=== PATIENT | female | born 1965 | race Caucasian/White ===

== ENCOUNTER 2023-03-15 08:20 | Emergency (ER) | payer MEDICARE, MEDICAID, SELFPAY ==
[2023-03-15] VITALS (34 sets, daily range): BP systolic 111–141; BP diastolic 78–96; PULSE 93–99; RESP 14–22; TEMP 35.8–36.4; O2SAT 94–99
--- NOTE | ~2023-03-15 | CT_ITS ---
EXAMINATION: CT cervical spine wo con DATE: 03/15/2023 08:48 INDICATION: Head injury. TECHNIQUE: Computed tomography (CT) of the cervical spine was performed without intravenous contrast. Automated exposure control and iterative reconstruction technique were employed. The dose-length pro duct was 227.29 mGy-cm. COMPARISON: None FINDINGS: There is mild emphysema. There is mild scarring at the lung apices. Bone alignment is chepe l. There are changes of anterior fusion procedure at C5-C6 with healed interbody bone graft and anter ior plate and screws. Vertebral body heights are normal. Intervertebral disc heights are normal. The following disc levels are specifically discussed: C2-C3: There is no uncovertebral joint osteoarthritis. There is moderate right and severe left facet joint osteoarthritis. There is no neural foraminal stenosis. There is no central canal stenosis. C3-C4: There is no uncovertebral joint osteoarthritis. There is mild bilateral facet joint osteoarthr itis. There is no neural foraminal stenosis. There is no central canal stenosis. C4-C5: There is no uncovertebral joint osteoarthritis. There is mild bilateral facet joint osteoarthr itis. There is no neural foraminal stenosis. There is no central canal stenosis. C5-C6: There is mild left uncovertebral joint hypertrophy. There is mild bilateral facet joint osteoa rthritis. There is mild left neural foraminal stenosis. There is no central canal stenosis. C6-C7: There is mild left uncovertebral joint osteoarthritis. There is no facet joint osteoarthritis. There is no neural foraminal stenosis. There is no central canal stenosis. C7-T1: There is no uncovertebral joint osteoarthritis. There is mild right and moderate left facet jorge int osteoarthritis. There is mild left neural foraminal stenosis. There is no central canal stenosis. IMPRESSION: 1. No fracture. 2. Mild cervical spondylosis. 3. Anterior fusion procedure at C5-C6. Reviewed, dictated and finalized at location A.
--- NOTE | ~2023-03-15 | CT_ITS ---
EXAMINATION: CT brain wo con DATE: 03/15/2023 08:48 INDICATION: Head injury. TECHNIQUE: Computed tomography (CT) of the head was performed without intravenous contrast. The mA wa s adjusted according to patient size. Iterative reconstruction technique was employed. The dose-lengt h product was 605.33 mGy-cm. COMPARISON: Head CT 09/24/2005 FINDINGS: There is no intracranial hemorrhage, acute infarction, or abnormal intracranial mass lesion . The ventricles are normal in size. There is mild mucosal thickening in the ethmoid sinuses. The orb its are normal. The mastoid air cells are normal. IMPRESSION: 1. Normal brain. Reviewed, dictated and finalized at location A. IMPRESSION: 1. Normal brain.
--- NOTE | ~2023-03-15 | XR_ITS ---
EXAMINATION: XR chest 1V portable 03/15/2023 08:47 INDICATION: Status post fall. Patient found unresponsive. PROCEDURE: AP portable chest COMPARISON: 04/14/2010 FINDINGS: The lungs are clear. The cardiomediastinal silhouette is within normal limits. There are no pleural effusions. There is no pneumothorax suspected. IMPRESSION: 1: NO ACUTE CARDIOPULMONARY DISEASE. Reviewed, dictated and finalized at location B.
--- NOTE | 2023-03-15 08:31 | ECG_ITS ---
Measurements Intervals [place] Rate: 88 P: 65 WA: 157 QRS: 27 QRSD: 122 T: 31 QT: 306 QTc: 371 Interpretive Statements SINUS RHYTHM SMALL NONDIAGNOSTIC INFERIOR Q-WAVES/POSSIBLE PREVIOUS INFERIOR WA BORDERLINE ECG NO PREVIOUS ECG AVAILABLE FOR COMPARISON Electronically Signed On 03-15-2023 14:37:36 CDT by Jeancarlos Khan M.D.
[2023-03-15] MEDS: NALOXONE HCL INJ 2 MG/2 ML AMP 1 MG IV PUSH (08:34)
[2023-03-15 08:37] LABS: Glucose Point of Care 102 mg/dl (65-105)
--- NOTE | 2023-03-15 08:47 | ED.HEATRA ---
HPI - Head Injury General Chief complaint: Head Injury Stated complaint: altered LOC Time Seen by Provider: 03/15/23 08:25 Source: patient and EMS Mode of arrival: EMS Limitations: altered mental status and clinical condition History of Present Illness HPI Narrative: patient is a 58-year-old female who fell 2 days ago at home with a head injury but did not seek medical care. EMS was called by her roommate. She was found to be unresponsive and hypoglycemia and hypothermia. Her pupils were small. She does use insulin and she does have pain medicine. Last known well was last night before bed. patient also has a seizure disorder. She has many medications. MD Complaint: head injury Onset (ago): day(s) (2) Arrival Conditions: C-spine immobilization present Mechanism of Injury: fall Place: home Loss of Consciousness: unsure Location of injury: other (unknown) Severity: moderate Severity scale (1-10): 5 Quality: sharp and throbbing Radiation: neck Other Injuries: none Context: other ( Recent opioid use suspected per EMS and her chart; recent insulin use) Associated symptoms: confusion Related Data Home Medications Medication Instructions Recorded Confirmed buspirone 10 mg tablet 10 mg PO TID 03/15/23 03/15/23 gabapentin 600 mg tablet 1,200 mg PO TID 03/15/23 03/15/23 hydroxyzine HCl 50 mg tablet 50 mg PO TID PRN Itching 03/15/23 03/15/23 levetiracetam 1,000 mg tablet 1,000 mg PO BID 03/15/23 03/15/23 omeprazole 40 mg capsule,delayed 40 mg PO DAILY 03/15/23 03/15/23 release pregabalin 150 mg capsule 150 mg PO DAILY 03/15/23 03/15/23 tizanidine 4 mg tablet 4 mg PO BID PRN Pain 03/15/23 03/15/23 Allergies Allergy/AdvReac Type Severity Reaction Status Date / Time No Known Allergies Allergy Unknown Verified 03/15/23 08:51 Review of Systems Review of Systems: All systems reviewed & are unremarkable except as noted in HPI and below Constitutional: Constitutional: Reports no additional constitutional complaints Eyes: Eyes: Reports no additional eye complaints ENT: Reports system reviewed and no additional complaints, except as documented Cardiovascular: Cardiovascular: Reports no additional cardiovascular complaints Respiratory: Respiratory: Reports no additional respiratory complaints Gastrointestinal: Gastrointestinal: Reports no additional gastrointestinal complaints Genitourinary: Genitourinary: Reports no additional female genitourinary complaints Musculoskeletal: Musculoskeletal: Reports no additional musculoskeletal complaints Integumentary/Breasts: Skin/Breast: Reports system reviewed and no additional complaints, except as docu Neurologic: Reports system reviewed and no additional complaints, except as documented Psychiatric: Psychiatric: Reports no additional psychiatric complaints Endocrine: Endocrine: Reports no additional endocrine complaints Hematologic/Lymphatic: Hematologic/Lymphatic: Reports no additional hematologic/lymphatic complaints Allergic/Immunologic: Allergic/Immunologic: Reports no additional allergic/immunologic complaints Exam Const: General: no acute distress, confusion and ill appearing Nutritional Appearance: thin Orientation/consciousness: No patient oriented x3 Limitations: altered mental status HENMT: Head: contusion ( posterior scalp) Eyes: Other: pupils are 2 mm bilateral reactive Resp: Effort & Inspection: normal respiratory effort Auscultation: clear to auscultation bilaterally Cardio: Rate: regular rate Rhythm: regular rhythm Heart sounds: no murmurs GI: Inspection: non-distended GI Palp: Yes Soft to palpation, No Tenderness to palpation present (GI), No Guarding due to palpation present (GI) and No Rigid due to palpation Auscultation: normal bowel sounds : General: Yes bladder normal to palpation Urinary Catheter: Urinary Catheter: patent and draining ( placed in ER) and urine clear Back/Spine/Pelvis: Cervical Spine: collar present Skin:
[2023-03-15] MEDS: SODIUM CHLORIDE 0.9% IV 1,000 ML 999 ML IV CONT (08:59)
[2023-03-15 09:16] LABS: Glucose Point of Care 181 mg/dl (65-105)
[2023-03-15 09:17] LABS: Basophils Absolute Auto 0.04 K/mm3 (0.00-0.10); Basophils Percent Auto 0.5 % (0.0-1.0); Eosinophils Absolute Auto 0.08 K/mm3 (0.02-0.50); Eosinophils Percent Auto 0.9 % (1.0-6.0); Hematocrit 44.9 % (35.0-49.0); Hemoglobin 15.5 g/dL (12.0-15.0); Immature Granulocyte Absolute 0.03 K/mm3 (0.00-0.00); Immature Granulocyte Percent A 0.4 % (0.0-0.0); Lymphocytes Absolute Auto 1.66 K/mm3 (1.10-4.50); Lymphocytes Percent Auto 19.4 % (18.0-42.0); Mean Corpuscular HGB Conc 34.5 g/dL (32.0-36.0); Mean Corpuscular Hemoglobin 30.6 pg (27.0-31.0); Mean Corpuscular Volume 88.6 fL (78.0-102.0); Mean Platelet Volume 11.6 fl (9.2-11.8); Monocytes Percent Auto 5.9 % (2.0-11.0); Neutrophils Absolute Auto 6.2 K/mm3 (1.7-7.2); Neutrophils Percent Auto 72.9 % (50.0-70.0); Platelet Count Result 212 K/mm3 (150-420); Red Blood Count 5.07 M/mm3 (4.20-5.40); Red Cell Distribution Width 13.8 % (11.6-14.4); White Blood Count 8.5 K/mm3 (4.8-10.8)
[2023-03-15 09:19] LABS: Appearance Urine Clear (Clear); Bilirubin Urine Negative (Negative); Blood Urine Negative (Negative); Color Urine Light Yellow (Yellow); Glucose Urine UA 2+ (Negative); Ketones Urine Negative (Negative); Leukocyte Esterase Ur Negative LEU/UL (Negative); Nitrate Urine Negative (Negative); Protein Urine Negative (Negative); Specific Grav Ur <= 1.005 (1.010-1.020); Urobilinogen Urine 0.2 mg/dL (0.2-1.0)
[2023-03-15 09:25] LABS: Amphetamine Screen Urine Negative (Negative); Barbiturate Screen Urine Negative (Negative); Benzodiazepines Screen Urine Positive (Negative); Cannabinoid Screen Urine Negative (Negative); Cocaine Screen Urine Negative (Negative); Methadone Screen Urine Negative (Negative); Opiate Screen Urine Negative (Negative); Phencyclidine Screen Urine Negative (Negative)
[2023-03-15 09:28] LABS: Add Urine Microscopic? YES; Bacteria Urine Rare /hpf; RBC Urine None seen /hpf (0-2); Squamous Epithelial Cell Urine Rare /hpf (Few); WBC Urine None seen /hpf (0-3)
--- NOTE | 2023-03-15 09:30 | PC.NURSE ---
Patient's daughter has arrived, states that the patient lives alone but last night she came to visit with her boyfriend and stayed the night. Patient informed daughter that she has not been taking care of her diabetes and they checked her blood sugar. They report last night her blood sugar was elevated at 574 and patient instructed daughter to give her 120 unites of humalog and 30 units of levimir at 1900. Daughter did as instructed around 2300 patient went to bed because she reports she wasn't feeling good. This morning around 0730 daughter went into patient's room to check on her and found her laying on the floor. They were not able to move patient so they called 911. Daughter states patient has been falling a lot lately and recently had a fall a few days ago. Patient did to got the doctor but didn't mention the falls or have anything checked out following the most recent one. Per daughter patient has been having a hard time lately due to the recent loss of her boyfriend who was on hospice and passed January 18 of this year. Daughter Aylin and sister Mechelle at bedside at this time. patient is now waking with voice, following commands and speaking more but is still drowsy.
[2023-03-15 09:35] LABS: Partial Thromboplastin Time 34.9 SEC (23.90-30.70); Prothrombin Time 10.7 Seconds (9.50-12.10)
[2023-03-15 09:38] LABS: Lactic Acid Reflex 2.6 mmol/L (0.4-2.0)
[2023-03-15 09:50] LABS: Glucose Point of Care 125 mg/dl (65-105)
[2023-03-15] MEDS: DEXTROSE 5%/0.45% SOD CHL 1,000 ML 50 ML IV CONT (09:54)
[2023-03-15 10:05] LABS: Alanine Aminotransferase 14 U/L (14-59); Albumin Level 3.7 g/dL (3.4-5.0); Alkaline Phosphatase 139 U/L (46-116); Anion Gap 12 mmol/L (8-16); Aspartate Amino Transferase 19 U/L (15-37); Bilirubin,Total 0.2 mg/dL (0.00-1.00); Blood Urea Nitrogen 19 mg/dL (7-18); Calcium 9.5 mg/dL (8.5-10.1); Carbon Dioxide 26 mmol/L (21-32); Chloride 96 mmol/L (98-108); Creatine Kinase 228 U/L (26-192); Estimated Glomerular Filt Rate > 60; Glucose 155 mg/dL (70-99); Osmolality Calculated 283 mOsm/kg (285-295); Potassium 2.8 mmol/L (3.5-5.1); Sodium 134 mmol/L (136-145); Total Protein 7.7 g/dL (6.4-8.2); Troponin I 13.4 ng/L (0.00-60.4)
[2023-03-15 10:07] LABS: Ethanol < 3 mg/dL (0-6)
[2023-03-15 10:49] LABS: Glucose Point of Care 124 mg/dl (65-105)
--- NOTE | 2023-03-15 11:15 | PC.NURSE ---
RN went into check on patient and start second IV, Patient easily to awaken and was talking with RN. Patient admitted to taking Ativan that is not prescribed to her last night before bed. Patient denies any thoughts of harming self or attempt at overdose.
[2023-03-15] MEDS: KCL 20 MEQ/SW 100 ML 100 ML 50 MEQ IVPB (11:19)
[2023-03-15 12:14] LABS: Reflex Lactic Acid Yes or No Add Lactic
[2023-03-15 13:03] LABS: Lactic Acid 2.5 mmol/L (0.4-2.0)
[2023-03-15 13:25] LABS: Glucose Point of Care 117 mg/dl (65-105)
--- NOTE | 2023-03-17 15:59 | PC.NURSE ---
Addendum entered by Mahsa Arreola RN 03/17/23 16:00: not final blood cultures reviewed, final urine culture reviewed, no growth, no ayala ein plan of care. blood cultures remain preliminary Original Note: final blood cultures x2 reviewed, no growth, no change in pt plan of care
--- NOTE | 2023-03-21 13:29 | PC.NURSE ---
blood culture reviewed, no growth noted after 5 days.
== END 2023-03-15 13:16 | disposition short-term general hospital (02) ==
PROVIDERS: Emergency Provider Emergency Medicine
DX: E16.2 Hypoglycemia, unspecified (principal); R40.4 Transient alteration of awareness; T42.4X5A Adverse effect of benzodiazepines, initial encounter; S09.90XA Unspecified injury of head, initial encounter; G40.909 Epilepsy, unspecified, not intractable, without status epilepticus; Z79.4 Long term (current) use of insulin; Z79.899 Other long term (current) drug therapy; W19.XXXA Unspecified fall, initial encounter
CPT/HCPCS: 36415; 70450; 71045; 72125; 80053; 80307; 81001; 82550; 82948; 83605; 84484; 85025; 85610; 85730; 87040; 87086; 93005; 96361; 96365; 96366; 96375; 99285; J2310; J3480; J7030

== ENCOUNTER 2023-05-25 22:37 | Emergency (ER) | payer MEDICARE, MEDICAID, SELFPAY ==
[2023-05-25 22:41] VITALS: BP 131/77; PULSE 87; RESP 18; O2SAT 97
--- NOTE | 2023-05-25 22:54 | PC.NURSE ---
call placed to [facility] , spoke with bree callaway. requested er record faxed to this facility, release form signed per pt and faxed to [facility].
--- NOTE | 2023-05-25 23:14 | ED.FALL ---
HPI - Fall General Chief Complaint: Fall Stated Complaint: fall, right foot injury Source: patient Mode of arrival: ambulatory Limitations: no limitations History of Present Illness HPI Narrative: this is a 58-year-old female that had a fall yesterday at 4:30 a.m. in the morning and injured her right ankle foot, was seen at another ER and had x-rays performed which showed no acute fractures. The patient continues to have pain and some mild swelling and tenderness with movement. Otherwise no numbness or tingling has good range of motion although tender with movement and palpation. complaint: fall Onset (ago): day(s) Fall from: standing Fall witnessed: no Place fall occurred: home Location of injury - extremities: Right: ankle ( Tender with palpation) and foot ( tender with palpation) Severity: moderate Severity scale (1-10): 6 Quality: dull Related Data Home Medications Medication Instructions Recorded Confirmed buspirone 10 mg tablet 10 mg PO TID 03/15/23 03/15/23 gabapentin 600 mg tablet 1,200 mg PO TID 03/15/23 03/15/23 hydroxyzine HCl 50 mg tablet 50 mg PO TID PRN Itching 03/15/23 03/15/23 levetiracetam 1,000 mg tablet 1,000 mg PO BID 03/15/23 03/15/23 omeprazole 40 mg capsule,delayed 40 mg PO DAILY 03/15/23 03/15/23 release pregabalin 150 mg capsule 150 mg PO DAILY 03/15/23 03/15/23 tizanidine 4 mg tablet 4 mg PO BID PRN Pain 03/15/23 03/15/23 Allergies Allergy/AdvReac Type Severity Reaction Status Date / Time No Known Allergies Allergy Unknown Verified 03/15/23 08:51 Review of Systems Review of Systems: All systems reviewed & are unremarkable except as noted in HPI and below PMFSH Past Medical History Medical History Patient denies medical problems Exam Const: General: healthy appearing Nutritional Appearance: well nourished Orientation/consciousness: patient oriented x3 Limitations: no limitations Neck: Neck: normal visual inspection Chest: Chest palpation & inspection: normal inspection of the chest Resp: Effort & Inspection: normal respiratory effort Auscultation: clear to auscultation bilaterally Cardio: Rate: regular rate Rhythm: regular rhythm GI: GI Palp: Yes Soft to palpation Auscultation: normal bowel sounds Neuro: General: patient oriented x3 and moves all extremities Extrem: Other: tender right ankle and right foot Psych: Mental Status: mental status grossly normal Affect: normal affect Course Course Emergency Course: patient had x-rays performed at another ER and those results were reviewed, the patient continues to have pain and was given 60mg IM Toradol and Dieudonne wrap and a script for crutches. Vital Signs Vital signs: Vital Signs Pulse Rate 87 05/25/23 22:41 Respiratory Rate 18 05/25/23 22:41 Blood Pressure 131/77 05/25/23 22:41 Pulse Oximetry 97 05/25/23 22:41 Oxygen Delivery Room Air 05/25/23 22:41 Pulse Rate 87 05/25/23 22:41 Respiratory Rate 18 05/25/23 22:41 Blood Pressure 131/77 05/25/23 22:41 Pulse Oximetry 97 05/25/23 22:41 Oxygen Delivery Room Air 05/25/23 22:41 Critical Care Time Critical Care Time Critical Care Time: No Discharge Plan Discharge Clinical Impression: Ankle sprain Qualifiers: Encounter type: initial encounter Involved ligament of ankle: unspecified ligament Laterality: right Qualified Code(s): S93.401A - Sprain of unspecified ligament of right ankle, initial encounter Patient Disposition: Home, Self-Care Condition: Stable Instructions: Antibiotic Form, Ankle Sprain (ED), Crutch Instructions (ED) Additional Instructions: advised to take medication as prescribed and follow up primary within 1 week further evaluation and treatment. Prescriptions: New naproxen 500 mg tablet 500 mg PO BID PRN (Reason: pain) Qty: 20 0RF No Action gabapentin 600 mg tablet 1,200 mg PO TID tizanidine 4 mg table
[2023-05-25] MEDS: KETOROLAC (*BKC) 60 MG/2 ML VIAL IM (23:20)
[2023-05-25 23:41] VITALS: BP 136/79; PULSE 84; RESP 18; O2SAT 98
== END 2023-05-25 23:47 | disposition home or self-care (01) ==
PROVIDERS: Emergency Provider Emergency Medicine
DX: S93.401A Sprain of unspecified ligament of right ankle, initial encounter (principal); W19.XXXA Unspecified fall, initial encounter
CPT/HCPCS: 96372; 99283; J1885

== ENCOUNTER 2024-05-13 14:33 | Outpatient (RCR) | payer MEDICARE, MEDICAID, SELFPAY ==
--- NOTE | 2024-05-13 16:12 | OPREHPOC ---
Outpatient Therapy Plan of Care This is a Multidisciplinary Plan of Care that may contain components documented by all disciplines (PT, OT, and ST.) PT Problem 1 PT Problem #1 Knowledge Deficit PT Goal 1 Goal / Goal Update The patient will be independent in a home exercise program. Target Visit 4 PT Problem 2 PT Problem #2 Pain PT Goal 1 Goal / Goal Update The patient will report no greater than 5/10 low back pain with bed mobility and sit to stand transfers. Target Visit 10 PT Goal 2 Goal / Goal Update The patient will report no greater than 3/10 low back pain with walking for 30 minutes to perform grocery shopping. Target Visit 18 PT Problem 3 PT Problem #3 Impaired Functional Mobil PT Goal 1 Goal / Goal Update 1. The patient will demonstrate 30% or less self perceived disability per the Back Index questionnaire. 2. The patient will be able to ambulate 1,000 feet during the 6 minute walk test to improve community ambulation. Target Visit 18 PT Problem 4 PT Problem #4 Impaired Strength PT Goal 1 Goal / Goal Update The patient will demonstrate 4/5 bilateral hip abduction and extension strength to improve transfer and ambulation ability. Target Visit 18
--- NOTE | 2024-05-13 16:12 | PTOPEVAL1 ---
Assessment and note entered by Maren Nava, PT Evaluation Information Assessment Status Evaluation Diagnosis L lumbar radiculopathy ICD-10 Condition Codes (PT) M54.16 Onset 05/05/24 Subjective Information Catrina Wilson reports she fell on 05/07/24 and 05/10. She reports she lost her balance while walking outside and fell to her right side. She went to the ER that same day and x-rays showed a fracture in her lumbar spine. She went to her PCP on 05/13/24 and was referred to PT. She is taking oxycodone for pain that was prescribed by the ER doctor. She is noting minimal change in pain with oxycodone so she is not taking it. She is using ibuprofen which helps a little and ice and heat have given her temporary pain relief. She is noting increased pain with sitting more than 30 minutes, standing more than 10 minutes, and walking more than a 1/4 block. She lives alone and is able to perform ADLs and housechores but has to take her time and it increases her pain as well . She was having back pain prior to the fall that was in the right lower back. She continues to have right lower back pain that is worse since she has fallen. She denies radiating pain or numbness and tingling other than the neuropathy she has in both feet. Reported Pain Level Pain Score 9: Self Report Assessment PT Clinical Summary Catrina Wilson presents with right lower back pain and reports she fell twice last week and her fall on 05/13/24 caused her to sustain a lumbar spine fracture. 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 She objectively demonstrates tenderness over the L5 spinous process, decreased core and hip girdle strength, decreased and painful lumbar mobility, impaired gait, and decreased functional abilities. She will benefit from skilled PT to address these limitations. Plan of Care Interventions Electrical Stimulation,Hot Pack/Cold Pack,Manual Therapy,Neuro Re-education,Patient/Caregiver Educati,Therapeutic Activities,Therapeutic Exercise PT Services Indicated Yes Treatment Frequency and 2 times a week for 10 visits Duration These treatments will address the objective and functional deficits as defined above. The patient will be advanced safely and appropriately in order for the patient to progress towards his/her prior level of function. Additional exercises will be introduced and as well as a comprehensive home exercise program upon discharge, if needed, ?to ensure carryover of functional gains achieved in the clinic. This treatment plan has been reviewed and agreement upon by the patient.
--- NOTE | 2024-05-14 10:25 | PCPTNOTE ---
Pt. did not show for her scheduled appointment. Attempted to ontact the pt. with no answer. Jeancarlos Moreland, MPT
--- NOTE | 2024-07-07 15:00 | PCPTNOTE ---
07/07/24: Pt last seen on 05/14/24 and only attended 2 visits. She will be discharged. -Maren Nava, PT
== END 2024-05-13 15:45 | disposition home or self-care (01) ==
LOC: CHSPT 14:33
PROVIDERS: Visit Provider Registered Nurse
DX: M54.16 Radiculopathy, lumbar region (principal)
CPT/HCPCS: 97014; 97110; 97161; G0283

== ENCOUNTER 2024-10-23 15:40 | Emergency (ER) | payer MEDICARE, MEDICAID, SELFPAY ==
--- NOTE | ~2024-10-23 | XR_ITS ---
HISTORY: fall, Upper back pain COMPARISON: None TECHNIQUE: 3 views of the thoracic spine were performed FINDINGS: No acute compression fracture is present. Bone mineralization is age advanced, demonstrating diffuse bony demineralization. Anterior fixation of the lower cervical spine. Significant degenerative disease, with osteophyte formation and disc space narrowing mostly within th e lower thoracic spine. No acute fracture is appreciated. IMPRESSION: Diffuse bony demineralization with significant degenerative disease. No acute fracture. Reviewed, dictated and finalized at location A. IMPRESSION: Diffuse bony demineralization with significant degenerative diseas e. No acute fracture.
[2024-10-23 15:40] VITALS: BP 162/80; PULSE 83; RESP 18; TEMP 36.3; O2SAT 96
--- NOTE | 2024-10-23 15:47 | ED_ITS ---
HPI - Fall General Chief Complaint: Back Pain/Injury Stated Complaint: Fall Time Seen by Provider: 10/23/24 15:47 Source: patient Mode of arrival: ambulatory Limitations: no limitations History of Present Illness HPI Narrative: Patient is a 59-year-old female with a ground level fall and down 1 stair prior to arrival. She had gotten a lower back steroid injection / pain injection today and lost footing on that same leg on the right and slipped on the top stair to the 2nd stair. She landed on the mid of her back. She has sharp pain on her back. She goes to pain management and has her refill tomorrow for pain medicine. She understands we cannot fill pain medicine. I did explain we can give pain medicine in the emergency room however. no head or neck injury. MD complaint: fall Onset (ago): hour(s) ( Three) Fall from: standing Fall witnessed: yes, by family Place fall occurred: other ( doctor's office stairwell) Loss of consciousness: none Prolonged down time: no Symptoms prior to fall: none Context: tripped/slipped Location of injury: back ( mid back thoracic region) Severity: moderate Severity scale (1-10): 7 Quality: sharp Associated symptoms (after fall): denies Related Data Home Medications ?Medication ?Instructions ?Recorded ?Confirmed ?Last Taken ?Type buspirone 10 mg tablet 10 mg PO TID 03/15/23 03/15/23 Unknown History gabapentin 600 mg tablet 1,200 mg PO TID 03/15/23 03/15/23 Unknown History hydroxyzine HCl 50 mg tablet 50 mg PO TID PRN Itching 03/15/23 03/15/23 Unknown History levetiracetam 1,000 mg tablet 1,000 mg PO BID 03/15/23 03/15/23 Unknown History omeprazole 40 mg capsule,delayed 40 mg PO DAILY 03/15/23 03/15/23 Unknown History release pregabalin 150 mg capsule 150 mg PO DAILY 03/15/23 03/15/23 Unknown History tizanidine 4 mg tablet 4 mg PO BID PRN Pain 03/15/23 03/15/23 Unknown History Allergies Allergy/AdvReac Type Severity Reaction Status Date / Time No Known Allergies Allergy Unknown Verified 10/23/24 15:51 Review of Systems Review of Systems: All systems reviewed & are unremarkable except as noted in HPI and below Constitutional: Constitutional: Reports no additional constitutional complaints Eyes: Eyes: Reports no additional eye complaints ENT: Reports system reviewed and no additional complaints, except as documented Cardiovascular: Cardiovascular: Reports no additional cardiovascular complaints Respiratory: Respiratory: Reports no additional respiratory complaints Gastrointestinal: Gastrointestinal: Reports no additional gastrointestinal complaints Genitourinary: Genitourinary: Reports no additional female genitourinary complaints Musculoskeletal: Musculoskeletal: Reports no additional musculoskeletal complaints Integumentary/Breasts: Skin/Breast: Reports system reviewed and no additional complaints, except as docu Neurologic: Reports system reviewed and no additional complaints, except as documented Psychiatric: Psychiatric: Reports no additional psychiatric complaints Endocrine: Endocrine: Reports no additional endocrine complaints Hematologic/Lymphatic: Hematologic/Lymphatic: Reports no additional hematologic/lymphatic complaints Allergic/Immunologic: Allergic/Immunologic: Reports no additional allergic/immunologic complaints PMFSH Past Medical History Medical History Patient denies medical problems Exam Const: General: healthy appearing Nutritional Appearance: well nourished Orientation/consciousness: patient oriented x3 Limitations: no limitations HENMT: Head: normal to inspection Ears: external ears normal Face/Nose/Sinus: Normal external nose present Eyes: Conjunctivae: conjunctivae normal Pupils: Equal, round and reactive pupils present EOM: EOMs intact bilaterally Neck: Neck: normal visual inspection Chest: Chest palpation & inspection: normal inspection of the chest Resp: Effort & Inspection: normal respiratory effort and not labored Auscultation: clear to auscultation bilaterally and no crackles Cardio: Rate: regular rate Rhythm: regular rhythm Heart sounds: no murmurs GI: Inspection: non-distended GI Palp: Yes Soft to palpation and No Tenderness to palpation present (GI) Auscultation: normal bowel sounds : General: Yes bladder normal to palpation Back/Spine/Pelvis: Back: no CVA tenderness Other: Tender midline spine mid spine Skin: General skin exam: normal color Rashes: no rashes Wounds: no wounds Neuro: General: patient oriented x3 Cranial nerves: Yes Nystagmus not present Speech: normal speech Gait exam (Neuro): Normal gait present Extrem: General: normal to inspection Psych: Mental Status: mental status grossly normal Affect: normal affect Attitude: cooperative Course Vital Signs Vital signs: Vital Signs Temperature 36.3 C L 10/23/24 15:40 Pulse Rate 83 10/23/24 15:40 Respiratory Rate 18 10/23/24 15:40 Blood Pressure 162/80 H 10/23/24 15:40 Pulse Oximetry 96 10/23/24 15:40 Oxygen Delivery Room Air 10/23/24 15:40 Temperature 36.3 C L 10/23/24 15:40 Pulse Rate 72 10/23/24 17:30 Respiratory Rate 17 10/23/24 17:30 Blood Pressure 154/95 H 10/23/24 17:30 Pulse Oximetry 97 10/23/24 17:30 Oxygen Delivery Room Air 10/23/24 15:40 MDM - Fall MDM Narrative Medical decision making narrative: patient is a 59-year-old female with a back injury after a fall ground level and down 1 stair prior to arrival. We will do x-rays and pain control. She has pain medicine pending tomorrow from her pain physician. no prescription for pain medicine sent to the pharmacy. Patient was given pain control in the emergency room. Imaging Data Attestation: I personally reviewed and interpreted this imaging study as follows: Radiologist's impression: Thoracic spine x-ray shows no acute process Discharge Plan Discharge Clinical Impression: Sprain of thoracic region Patient Disposition: Home, Self-Care Condition: Improved Instructions: Back Pain (ED) Patient Language: Chilean Prescriptions: No Action gabapentin 600 mg tablet 1,200 mg PO TID tizanidine 4 mg tablet 4 mg PO BID PRN (Reason: Pain) hydroxyzine HCl 50 mg tablet 50 mg PO TID PRN (Reason: Itching) omeprazole 40 mg capsule,delayed release(DR/EC) 40 mg PO DAILY buspirone 10 mg tablet 10 mg PO TID pregabalin 150 mg capsule 150 mg PO DAILY levetiracetam 1,000 mg tablet 1,000 mg PO BID naproxen 500 mg tablet 500 mg PO BID PRN (Reason: pain) Qty: 20 0RF Follow-up/Referrals: Maribell,Bakari Garcia MD [Primary Care Provider] - Time of Disposition: 18:07
--- OUTSIDE RECORDS SUMMARY | 2024-10-23 15:49 | XMS_ITS | Encounter Summary ---
Author Organization [facility] Address [facility] [place] [address] Care Team Providers Care Network Technician Name Role Phone Eriberto Malone MD Primary Care Provider [phone] None, Provider Primary Care Provider Unavaila ble None, Provider Primary Care Provider Unavaila ble Pearl Marin MD Primary Care Provider [phone] None, Provider Primary Care Provider Unavaila ble Valerie Kilgore MD Primary Care Provider + [phone] Jack Reynaga NP Unavailable [phone] Linda George MD Unavailable Encounter Details Date Type Department Care Team (Late st Contact Info) Description 10/05/2017 Abstract [facility] CONVERSION [address] [place] [address] , Generic Conversion, Social History Tobacco Use Types Packs/Day Years Used Date Smoking Tobacco: Smoker, Current Status Unknown Comments Unknown Sex and Gender Information Value Date Recorded Sex Assigned at Female 09/11/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 Sex Female 9:47 PM CDT Gender Identity Female 02/05/2020 6:25 AM CDT Sexual Orientation Not on file documented as of this encounter Plan of Treatment Not on file documented as of this encounter Visit Diagnoses Not on filedocumented in this encounter Additional Health Concerns Infection Onset Date Last Indicated Resolved Time ESBL - Extended Spectrum Beta-lactamase Comment:07/19/21 abscess tissue (SB) 08/05/2018 08/05/2018 COVID-19 Rule Out 06/21/2020 06/21/2020 06/21/2020 6:49 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 Dietrich, patient meets [facility] guidelines for discontinuing COVID isolation. (RG) 07/18/2021 07/18/2021 07/28/2021 1:[address] COVID-19 Rule Out 05/08/2024 05/08/2024 05/08/2024 9:36 PM CDT documented as of this encounter Care Teams Network Technician Relationship Specialty Start Date End Date Eriberto Malone MD [address] [place] [id number] PCP - General INTERNAL MEDICINE 12/26/18 06/14/19 None, Provider, PCP - General 06/22/19 09/06/19 None, ProviderMD PCP - General 09/07/19 10/04/19 Pearl Marin MD [address] [place] [id number] PCP - General INTERNAL MEDICINE 10/05/19 03/14/23 None, ProviderMD PCP - General UNKNOWN PHYSICIAN SPECIALTY 03/15/23 07/04/23 Valerie Kilgore MD [address] [place] [id number] PCP - General FAMILY PRACTICE 07/05/23 Jack Reynaga NP [address] [place] [phone] Nurse Practitioner Family 01/03/24 Linda George MD [address] [place] [id number] Consulting Physician CARDIOVASCULAR DISEASE 01/03/24 documented as of this encounter
--- OUTSIDE RECORDS SUMMARY | 2024-10-23 15:49 | XMS_ITS ---
Author Organization Unknown Address [address] [place] [phone] Phone Care Team Providers Care Engraver Flatware Name Role Phone KWAME Larose Attending Unavailable NILAM Underwood Primary Unavailable Immunization Immunization Date Status Additional Notes Code Code System Influenza, split virus, trivalent, preservative 06/21/2022 Completed 141 CVX Influenza, split virus, quadrivalent, PF 04/21/2019 Completed 150 CVX Influenza, split virus, quadrivalent, preservative 04/07/2019 Completed 158 C VX Influenza, split virus, quadrivalent, preservative 04/05/2023 Completed 158 C VX Influenza, MDCK, quadrivalen t, preservative 07/10/2018 Completed 186 CVX zoster recombinant 05/08/2023 Completed 187 CVX zoster recombinant 07/12/2023 Completed 187 CVX Pneumococcal conjugate PCV20 , polysaccharide [id number] conjugate, adjuvant, PF 05/08/2023 Completed 216 CVX COVID-19, mRNA, LNP-S, PF, prasad-sucrose, 30 mcg/0.3 mL 04/25/2023 Completed 309 CVX Social History Type Status Start Date End Date Code Code Syst em Smoking History Current every day smoker 404236048 SNOMED CT Sex Female Hospital Discharge Instructions Should you have any questions prior to discharge, please contact a member of your healthcare team. If you have left the hospital and have any questions, please contact your primary care physician. Reason For Referral No Data Found Allergies and Adverse Reactions Allergy Substance Reaction Severity Start Date Concern Status Co de Code System No Known Allergies Moderate Active 411933329 SN OMED-CT No Known Allergies Moderate Active 936823461 SN OMED-CT Plan of Treatment No Data Found Encounters Encounter Diagnosis Start Date Code Code Sys tem Low back pain, unspecified 05/06/2024 S NOMED-CT Personal Care Team Section Performer Name Performer Role Active Date Inactive Da NIKKO Torres PCP - Primary care physician 2021-08-22 2024-01-09 CHANO ORDONEZ PCP - Primary care physician 2024-05-27
--- OUTSIDE RECORDS SUMMARY | 2024-10-23 15:49 | XMS_ITS | Clinical Summary ---
Author Organization [facility] Address [address] [place] [address] Care Team Providers Care Beck Tender Name Role Phone Valerie Demarco MD Primary Care Provider [phone] Christy Reynaga [facility] Unavailable [phone] Linda George MD Unavailable Allergies Active Allergy Reactions Criticality Noted Date Comments Bee Venom Unknown 08/02/2021 Medications DULoxetine HCl 30 MG Capsule Delayed Release SprinkleIndicatio ns:Depression Take 90 mg by mouth daily. Indications: Depression 07/31/19 22 Active albuterol sulfate HFA 108 (90 Base) MCG/ACT inhalerIndication s:Shortness of breath Take 1 puff by mouth every 4 (four) hours as needed for Shortness of breath. Indications: Shortness of breath 07/17/20 12 Active famotidine (PEPCID) 40 MG tabletIndications :Acid Regurgitation Take 1 tablet (40 mg total) by mouth daily. Indications: Acid Regurgitation 05/29/20 21 Active insulin lispro 100 UNIT/ML injection (VIAL) Inject 0-12 Units into the skin 3 (three) times daily before meals. 10 mL 12 07/28/19 22 Active omeprazole (PRILOSEC) 40 MG capsule Take 1 capsule (40 mg total) by mouth daily. 02/28/20 23 Active hydrOXYzine (ATARAX) 50 MG tablet Take 1 tablet (50 mg total) by mouth every 8 (eight) hours as needed. 02/28/20 23 Active LEVEMIR FLEXPEN 100 UNIT/ML PEN Inject 60 Units into the skin 2 (two) times daily. 02/01/20 23 Active levothyroxine (SYNTHROID) 25 MCG tablet Take 1 tablet (25 mcg total) by mouth every morning. 06/17/20 23 Active diclofenac XR (VOLTAREN XR) 100 MG 24 hr tablet Take 1 tablet (100 mg total) by mouth daily as needed for Pain. 07/29/19 24 Active FLUoxetine (PROZAC) 20 MG capsule Take 1 capsule (20 mg total) by mouth daily. 07/23/19 24 Active TRELEGY ELLIPTA 100-62.5-25 MCG/ACT AEROSOL POWDER, BREATH ACTIVATED daily. 07/30/19 24 Active gabapentin (NEURONTIN) 400 MG capsule Take 1 capsule (400 mg total) by mouth 3 (three) times daily. 07/23/19 24 Active SUMAtriptan (IMITREX) 50 MG tablet Take 1 tablet (50 mg total) by mouth 2 (two) times daily as needed for Migraine. 07/11/20 23 Active ondansetron (ZOFRAN-ODT) 4 MG disintegrating tablet Take 1 tablet (4 mg total) by mouth every 12 (twelve) hours as needed for Nausea. 10 tablet 09/10/19 24 Active atorvastatin (LIPITOR) 80 MG tablet Take 1 tablet (80 mg total) by mouth nightly at bedtime. 10/22/19 24 Active fluconazole (DIFLUCAN) 200 MG tablet Take 1 tablet (200 mg total) by mouth daily. 09/27/19 24 Active LANTUS SOLOSTAR 100 UNIT/ML injection (PEN) Inject into the skin nightly at bedtime. 10/22/19 24 Active fenofibrate 160 MG tablet 11/12/19 24 Active PARoxetine (PAXIL) 30 MG tablet Take 1 tablet (30 mg total) by mouth every morning. Active meloxicam (MOBIC) 15 MG tablet Take 1 tablet (15 mg total) by mouth daily. Active aspirin 81 MG chewable tablet Chew 1 tablet (81 mg total) by mouth daily. Active nitroglycerin (NITROSTAT) 0.[address] 1 tablet (0.4 mg total) under the tongue every 5 (five) minutes as needed for Chest Pain. Maximum of 3 doses. 15 tablet 01/09/20 24 025 Active miconazole (ALOE VESTA ANTIFUNGAL) 2 % cream Apply topically 2 (two) times daily. 56 g 07/26/20 24 Active metroNIDAZOLE (FLAGYL) 500 MG tablet Take 1 tablet (500 mg total) by mouth 3 (three) times daily. Active naloxone (NARCAN) 4 MG/0.1ML nasal spray 1 spray by Nasal route as needed for Opioid reversal. may repeat every 2 to 3 minutes in alternating nostrils until medical assistance becomes available 1 each 05/09/20 24 025 Active oxyCODONE-acetami nophen (PERCOCET) 5-325 MG tabletIndications :Acute Pain < 3 Day Supply Take 1 tablet by mouth every 8 (eight) hours as needed for Pain. Indications: Acute Pain < 3 Day Supply 3 tablet 09/29/19 25 Active oxyCODONE-acetami nophen (PERCOCET) 5-325 MG tabletIndications :Acute Pain < 3 Day Supply Take 1 tablet by mouth every 8 (eight) hours as needed for Pain. 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 ([facility]) 07/28/2021 Necrotizing fasciitis ([facility]) 07/19/20 21 Chest pain 02/05/2020 HTN (hypertension) 02/05/2020 Resolved Problems Problem Noted Date Diagnosed Date Resolved Date Hypotension (arterial) 06/21/202006/22 Diabetes mellitus ([facility]) 02/05/2020 02/05/2020 Encounters Date Type Department Care Team Description 10/07/2024 1:02 PM CDT - 10/07/2024 11:59 PM CDT Hospital Encounter [facility] [address] [place] [address] Valerie Demarco MD Discharge Disposition: Home or Self Care (Routine Discharge) 10/07/2024 Travel 09/28/2024 2:58 AM CDT - 09/28/2024 5:19 AM CDT Emergency [facility] [address] [place] [address] Burt Trammell, DO Back Pain Discharge Disposition: Home or Self Care (Routine Discharge) 09/28/2024 Travel 07/30/2024 Transcribe Orders [facility] [address] [place] [address] Leonor Montaño FNP from Last 3 Months Immunizations Name Administration Dates Next Due Fluzone 6 Months+ Quad (0.5 mL Prefilled Syringe) 06/22/2020(Deferred: Patient/family declined) Family History Medical History Relation Comments Depression Brother Depression Father Diabetes Father Heart Disease Father Heart Disease Mother Breast Cancer Paternal Aunt Colon Cancer Paternal Grandfather Colon Cancer Sister Depression Sister Relation Status Comments Brother Alive Father Mother Paternal Aunt Paternal Grandfather Sister Alive Social History Tobacco Use Types Packs/Day Years Used Date Smoking Tobacco: Every Day Cigarettes 1 38 Smokeless Tobacco: Never Tobacco Cessation:Ready to Q uit: Not Asked; Counseling Given: Not Answered Alcohol Use Standard Drinks/Week Comments No 0 (1 standard drink = 0.6 oz pur e alcohol) [facility] Imnishities Answer Date Recorded In the past 12 months has e [employer], gas, oil, or water [employer] threatened to shut off services in your home? No 08/11/2023 Humiliation, Afraid, Rape, and Kick questionnair e Answer Date Recorded Within the last year, have y ou been afraid of your partner or ex-partner? No 08/11/2023 Within the last year, have y ou been humiliated or emotionally abused in other ways by your partner or ex-partner? No Within the last year, have y ou been kicked, hit, slapped, or otherwise physically hurt by your partner or ex-partner? No 08/11/2023 Within the last year, have y ou been raped or forced to have any kind of sexual activity by your partner or ex-partner? No 08/11/2023 Social Connection and Isolation Panel [NHANES] A nswer Date Recorded In a typical week, how many times do you talk on the phone with family, friends, or neighbors? Patient declined 06/21/2020 How often do you get togethe r with friends or relatives? Patient declined 06/21/2020 How often do you attend jain or baptism serv ices? Patient declined 06/21/2020 Do you belong to any clubs o r organizations such as jain groups, unions, fraternal or athletic groups, or school groups? Patient declined 06/21/2020 How often do you attend meet ings of the clubs or organizations you belong to? Patient declined 06/21/2020 Are you , , di vorced, , never , or living with a partner? Patient declined 06/21/2020 AUDIT-C Answer Date Recorded Frequency of Alcohol Consumption Never 02/27/2019 Average Number of Drinks Not on file 019 Frequency of Binge Drinking Not on file 03/2019 Overall Financial Resource Strain (CARDIA) Answe r Date Recorded How hard is it for you to pa y for the very basics like food, housing, medical care, and heating? Not hard at all 08/11/2023 [facility] - Occupational Stress Questionnaire Answer Date Recorded Do you feel stress - tense, restless, nervous, or anxious, or unable to sleep at night because your mind is troubled all the time - these days? Only a little 06/21/2020 Exercise Vital Sign Answer Date Recorde d On average, how many days pe r week do you engage in moderate to strenuous exercise (like a brisk walk)? 0 days 06/21/2020 On average, how many minutes do you engage in exercise at this level? 0 min 06/21/2020 Hunger Vital Sign Answer Date Recorded Within the past 12 months, y ou worried that your food would run out before you got the money to buy more. Never true 08/11/19 24 Within the past 12 months, t he food you bought just didn't last and you didn't have money to get more. Never true 08/11/2023 PRAPARE - Transportation Answer Date Re corded In the past 12 months, has l ack of transportation kept you from medical appointments or from getting medications? No 07/23 In the past 12 months, has l ack of transportation kept you from meetings, work, or from getting things needed for daily living? No 08/11/2023 Housing Stability Vital Sign Answer Sanjay e Recorded In the last 12 months, was t here a time when you were not able to pay the mortgage or rent on time? No 08/11/2023 In the last 12 months, how many places have you lived? 1 08/11/2023 In the last 12 months, was t here a time when you did not have a steady place to sleep or slept in a assisted (including now)? No 08/11/2023 Comments No Sex and Gender Information Value Date Recorded Sex Assigned at Female 09/11/2024 10:[address] SPECIALIST Legal Sex Female 9:47 PM CDT Gender Identity Female 02/05/2020 6:25 AM CDT Sexual Orientation Not on file Last Filed Vital Signs Vital Sign Reading Time Taken Comments Blood Pressure 119/65 09/28/2024 5:15 AM CDT Pulse 112 09/28/2024 3:04 AM CDT Temperature 37.4 C (99.4 F) 09/28/2024 3:04 AM CDT Respiratory Rate 18 09/28/2024 3:04 AM CDT Oxygen Saturation 93% 09/28/2024 5:15 AM CDT Inhaled Oxygen Concentration - - Weight 54.4 kg (120 lb) 09/28/2024 3:04 AM CDT Height 154.9 cm (5' 1 ) 09/28/2024 3:04 AM CDT Body Mass Index 22.67 09/28/2024 3:04 AM CDT Plan of Treatment Health Maintenance Due Date Last Done Comments Colorectal Cancer Screening Colonoscopy (10 Years) 1966 Kidney Health Evaluation 1966 Annual Physical 1969 Diabetes: Retinopathy Eye Exam 02/23/1984 DTaP, Tdap and Td Vaccines (1 - Tdap) 1985 Hepatitis B Vaccines (1 of 3 - 19+ 3-dose series) 1985 COVID-19 Vaccine (2 season) 2024 04/25/2023 Hemoglobin A1C 06/26/2024 03/27/2024, 02/20, 08/12/2022, Additional history exists Lung Cancer Screening 03/10/2025 03/10/2024 , 08/10/2023, 06/07/2020 Lipid Panel 03/27/2025 03/27/2024, 02/20, 05/31/2020, Additional history exists Mammogram Screening 10/07/2026 10/07/2024, 06/19/2023, 05/10/2022, Additional history exists Pneumococcal Vaccine: Pediatrics (0 to 5 Years) and At-Risk Patients (6 to 64 Years) Completed 05/08/2023 Zoster Vaccines Completed 07/12/2023, 05/08/2023 Hepatitis C Completed 03/27/2024 Meningococcal B Vaccine Aged Out No l onger eligible based on patient's age to complete this topic Meningococcal Vaccine Aged Out No zoya orlin eligible based on patient's age to complete this topic RSV Immunizations Under 20 Months Aged Out No longer eligible based on patient's age to complete this topic Goals Goal Patient Goal Type Associated Problems Recent Progress Patient-Stated? Author Safety Patient/family will have appropriate support at home upon discharge Cinthya Wang, big data analytics lead Procedure Name Priority Date/Time Associated Diagnosis Comments MG SCREENING W CANDACE TEA DIGI Routine 10/07/2024 2:04 PM CDT Encounter for screening mammogram for malignant neoplasm of breast HEPATITIS C ANTIBODY Routine 03/27/2024 5:16 PM CDT Screening for STD (sexually transmitted disease) LIPID PANEL Routine 03/27/2024 5:16 PM CDT Hypercholesterolemi a HEMOGLOBIN, GLYCOSYLATED Routine 03/27/2024 5:16 PM CDT Type [address] CHEST WO CON Routine 03/10/2024 2:13 PM CDT Lung nodule from Last 3 Months or Most Recently Relevant to Health Maintenance Results * MG SCREENING W CANDACE TEA DIGI (10/07/2024 2:04 PM CDT) Anatomical Region Laterality Modality Breast Bilateral Mammography 10/07/2024 3:06 PM CDT Impressions 10/07/2024 3:06 PM CDT IMPRESSION: No suspicious change since the previous exams. Recommendation: 1: Routine Screening Bilateral in 1 Year Assessment: ACR BI-RADS 2 - BENIGN FINDING(S) Ordered By: VALERIE DEMARCO Interpreted By: Galdino Carreon MD, 10/07/2024 3:06 PM Narrative 10/07/2024 3:06 PM CDT [address] [place] [address] Examination: Digital screening mammogram with CAD. Clinical history: Asymptomatic patient presents for routine screening. Comparison: 06/19/2023, 05/10/2022, 08/25/2020, 06/24/2019. Technique: Bilateral digital mammograms. The exam was interpreted with the use of a computer-aided detection (CAD) system. Additional 3-D tomosynthesis images were acquired. Tissue density: The breasts are heterogeneously dense which may obscure small masses. Findings: The breast tissue is heterogeneously dense. The dense tissue may obscure some lesions mammographically. Benign-appearing calcification noted. No suspicious mass, microcalcification or area of architectural distortion can be identified. From a mammographic standpoint, routine followup in one year would seem adequate. Valerie Demarco MD MAMMO Final Resu lt * (ABNORMAL) HEMOGLOBIN, GLYCOSYLATED (03/27/2024 5:16 PM CDT) Pathologist [facility] HGB A1C 10.5(H) <5.7 % 03/28/2024 5:01 PM CDT [facility] ESTIMATED AVG GLUCOSE 255(H) 74 - 114 MG/DL 03/28/2024 5:01 PM CDT [facility] 03/27/2024 5:16 PM CDT Christy Reynaga NP LABORATORY Fin al Result [facility] [address] [place] [address], [phone] * (ABNORMAL) LIPID PANEL (03/27/2024 5:16 PM CDT) Pathologist [facility] CHOLESTEROL 201 MG/DL 03/28/2024 4:24 PM CDT [facility] Comment:BORDERLINE HIGH: 200 -239 TRIGLYCERIDES 264 MG/DL 03/28/2024 4:24 PM CDT [facility] Comment:200-499 HIGH HDL 31(L) >49 MG/DL 03/28/2024 4:24 PM CDT [facility] LDL-C 117 MG/DL 03/28/2024 4:24 PM CDT [facility] Comment:100-129 NEAR OR ABOV E OPTIMAL VLDL CALCULATION 53 MG/DL 03/28/20 4:24 PM CDT [facility] Comment:REFERENCE RANGE NOT ESTABLISHED CHOL/HDL RATIO 6.5 03/28/2024 4:24 PM CDT [facility] Comment:REFERENCE RANGE NOT ESTABLISHED LDL/HDL 3.8 03/28/2024 4:24 PM CDT [facility] Comment:REFERENCE RANGE NOT ESTABLISHED NON HDL CHOLESTEROL 170 MG/DL 03/28/2024 4:24 PM CDT [facility] Comment:REFERENCE RANGE NOT ESTABLISHED 03/27/2024 5:16 PM CDT Christy Reynaga NP LABORATORY Fin al Result Performing Organization Address [facility] Co de Phone Number [facility] [address] [place] [address], [phone] * HEPATITIS C ANTIBODY (03/27/2024 5:16 PM CDT) Pathologist [facility] HEPATITIS C AB NON-REACTI VE NON-REACT JUDY 03/28/2024 6:13 PM CDT [facility] Comment: ANTIBODIES TO HCV NOT DETECTED. DOES NOT EXCLUDE THE POSSIBILITY OF EXPOSURE TO HCV. 03/27/2024 5:16 PM CDT Christy Muirwilman [facility] LABORATORY Fin al Result [facility] [address] [place] [address], [phone] * CT CHEST WO CON (03/10/2024 2:13 PM CDT) Anatomical Region Laterality Modality Chest Computed Tomogra phy 03/19/2024 3:18 PM CDT Impressions 03/19/2024 3:24 PM CDT IMPRESSION: 1. No acute intrathoracic process identified. 2. Benign pulmonary nodules as described. No further workup or surveillance is required. Given the patient's smoking history, consideration may be given to low dose screening chest CT in one year. 3. Coronary artery disease. 4. Centrilobular and paraseptal emphysema. Ordered By: CHRISTY REYNAGA Interpreted By: Galdino Carreon MD, 03/19/2024 3:18 PM Narrative 03/19/2024 3:24 PM [address]T [address] [place] [address] Examination: CT of the chest without contrast. Exam time: 1415 hours. Clinical history: Follow-up of pulmonary nodules. Smoker. Comparison: CT of the chest, abdomen and pelvis, 08/10/2023, CT of the chest, 06/07/2020. Technique: Spiral scanning was performed through the chest without contrast. Sagittal and coronal reconstructions were performed from the data set. A dose lowering technique was used for this procedure, which may include, but is not limited to, dose reduction techniques, automated exposure control, the use of iterative reconstruction and ALARA/Image Gently techniques. Findings: Calcific coronary artery disease and atherosclerotic calcification of the aorta again evident. The heart and great vessels are otherwise unremarkable for the noncontrast technique. No hilar or mediastinal adenopathy is identified. No endobronchial abnormality is identified. Changes of centrilobular and paraseptal emphysema are again evident. There is stable biapical scarring. Punctate calcified granuloma in the right lower lobe near the hilum is again evident. Bilateral sub-6 mm noncalcified nodules referenced on 08/10/2023 are again evident and considered stable since 06/07/2020 allowing for inherent technical differences, benign, presumably granulomas. There is no dominant mass, suspicious nodule or focal airspace opacity. No pleural abnormalities are seen. The chest wall structures appear intact. The included sections through the upper abdomen show no acute process. Cholecystectomy is again evident. Procedure Note Galdino Carreon MD - 03/19/2024 [facility] [address] [place] [address] Examination: CT of the chest without contrast. Exam time: 1415 hours. Clinical history: Follow-up of pulmonary nodules. Smoker. Comparison: CT of the chest, abdomen and pelvis, 08/10/2023, CT of thechest, 06/07/2020. Technique: Spiral scanning was performed through the chest withoutcontrast. Sagittal and coronal reconstructions were performed from thedata set. A dose lowering technique was used for this procedure, whichmay include, but is not limited to, dose reduction techniques, automatedexposure control, the use of iterative reconstruction and ALARA/ImageGently techniques. Findings: Calcific coronary artery disease and atheroscleroticcalcification of the aorta again evident. The heart and great vessels areotherwise unremarkable for the noncontrast technique. No hilar ormediastinal adenopathy is identified. No endobronchial abnormality isidentified. Changes of centrilobular and paraseptal emphysema are againevident. There is stable biapical scarring. Punctate calcified granulomain the right lower lobe near the hilum is again evident. Bilateral sub- 6mm noncalcified nodules referenced on 08/10/2023 are again evident andconsidered stable since 06/07/2020 allowing for inherent technicaldifferences, benign, presumably granulomas. There is no dominant mass,suspicious nodule or focal airspace opacity. No pleural abnormalities areseen. The chest wall structures appear intact. The included sectionsthrough the upper abdomen show no acute process. Cholecystectomy is againevident. IMPRESSION: 1. No acute intrathoracic process identified. 2. Benign pulmonary nodules as described. No further workup orsurveillance is required. Given the patient's smoking history,consideration may be given to low dose screening chest CT in one year. 3. Coronary artery disease. 4. Centrilobular and paraseptal emphysema. 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 Emergency Expl anation Guardianship - Permanent 04/07/2018 12:00 AM PHYSICIAN CERTIFICATION STATEMENT Legal Documents 05/09/2014 12:00 AM [facility] RECORD * Full Code (Latest Code Status on File) Date Activated Date Inactivated Comments 08/11/2023 8:21 PM 08/13/2023 2:31 PM * DNR Date Activated Date Inactivated Comments 03/15/2023 5:33 PM 04/05/2023 12:43 PM * Full Code Date Activated Date Inactivated Comments 03/15/2023 3:04 PM 03/15/2023 5:33 PM * Full Code Date Activated Date Inactivated Comments 08/12/2022 10:17 AM 08/14/2022 3:27 PM * Full Code Date Activated Date Inactivated Comments 09/14/2021 3:50 PM 10/08/2021 4:02 PM Care Teams Beck Tender Relationship Specialty Start Date End Date Valerie Demarco MD [address] [place] [phone] PCP - General FAMILY PRACTICE 07/05/23 Christy Reynaga NP [address] [place] [phone] Nurse Practitioner Family 01/03/24 Linda George MD [address] [place] [address] Consulting Physician CARDIOVASCULAR DISEASE 01/03/24
--- OUTSIDE RECORDS SUMMARY | 2024-10-23 15:49 | XMS_ITS ---
Author Organization Unknown Address [address] [place] [phone] Phone Care Team Providers Care Health Promotion Educator Name Role Phone MATEUSZ US Attending Unavailable NILAM Underwood Primary Unavailable Immunization [...] 187 CVX Pneumococcal conjugate PCV20 , polysaccharide SOT041 conjugate, adjuvant, PF 05/08/2023 Completed 216 CVX COVID-19, mRNA, LNP-S, PF, prasad-sucrose, 30 mcg/0.3 mL 04/25/2023 Completed 309 CVX Results SHOULDER MIN 2V RIGHT - Comp leted: 01/09/2024 16:00 LOINC: EXAM DESCRIPTION: SHOULDER MIN 2V RIGHT REASON FOR STUDY: CHILD SLAMMED DOWN ON SHOULDER SHOULDER BLADE PAIN THAT RADIATES TO ANTERIOR SHOULDER LROM Duration: TODAY TECHNIQUE: 4 view(s) of the right shoulder COMPARISON: None FINDINGS: There is mild osteoarthritis involving the acromioclavicular and glenohumeral joints. There is no destructive osseous lesion. No acute fracture or dislocation. The visualized ribs are intact. There is cervical fusion hardware at the C6-7 levels. Subtle nodular opacity in the right upper lobe superimposed over the 5th rib posteriorly on the AP view. IMPRESSION: 1. No acute fracture in the right shoulder. Osteoarthritis. 2. Nodular opacity within the right upper lobe. CT chest recommended for further evaluation. This can be performed non emergently. THIS IS AN ELECTRONICALLY VERIFIED FINAL REPORT 01/09/2024 4:22 PM - Electronically signed by Shoshana Irizarry M.D. TW: TW Report ID: [id number] Reading Location: [id number] Social History Type Status Start Date End Date Code Code Syst em Smoking History Current every day smoker 342333731 SNOMED CT Sex Female Hospital Discharge Instructions [...] Code System No Known Allergies Moderate Active 136980917 [facility] No Known Allergies Moderate Active 441296456 [facility] Plan of Treatment No Data Found Encounters Encounter Diagnosis Start Date Code Code Sys tem Contusion of right shoulder, initial encounter 024 SNOMED-CT Personal Care Team Section Performer Name Performer Role Active Date Inactive NIKKO Izaguirre PCP - Primary care physician 2021-08-22 2024-01-09 CHANO ORDONEZ PCP - Primary care physician 2024-05-27 Imaging Narrative Notes
--- OUTSIDE RECORDS SUMMARY | 2024-10-23 15:49 | XMS_ITS ---
Author Organization Unknown Address [address] [place] [phone] Phone Care Team Providers Care Bridges Supervisor Name Role Phone SHEPARD TAMIKO Attending Unavailable MERY Gasca Primary Unavailable Immunization Immunization Date Status Additional [...] 187 CVX Pneumococcal conjugate PCV20 , polysaccharide [id number] conjugate, adjuvant, PF 05/08/2023 Completed 216 CVX COVID-19, mRNA, LNP-S, PF, prasad-sucrose, 30 mcg/0.3 mL 04/25/2023 Completed 309 CVX Results CERVICAL SPINE 2 OR 3 VIEWS - Completed: 06/10/2024 10:35 LOINC: EXAM DESCRIPTION: CERVICAL SPINE 2 OR 3 VIEWS REASON FOR STUDY: fall last night neck pain Duration: one day Previous Surgery: fusion TECHNIQUE: 3 radiographic view(s) of the cervical spine. COMPARISON: None. FINDINGS: ALIGNMENT: Straightening of the normal cervical lordosis which may be in part due to postsurgical change, patient positioning, or muscular spasm. No definite acute traumatic spondylolisthesis. VERTEBRAE: Status post ACDF of C5-C6 with osseous fusion. No definite acute displaced fracture. Otherwise, vertebral body heights are grossly maintained. DISCS: Normal. SOFT TISSUES: Carotid atherosclerotic calcifications OTHER: Osseous fusion C5-C6. Otherwise disc height relatively maintained. IMPRESSION: ? ? No definite acute displaced fracture or traumatic malalignment of the cervical spine. THIS IS AN ELECTRONICALLY VERIFIED FINAL REPORT 06/10/2024 10:45 AM - Electronically signed by Pedro Serrano M.D. NS: NS Report ID: [id number] Reading Location: [id number] RIBS RIGHT W/ 1V CHEST - Com pleted: 06/10/2024 10:35 LOINC: EXAM DESCRIPTION: RIBS RIGHT W/ 1V CHEST REASON FOR STUDY: fall last night, denies rib pain hx of copd Duration: one day TECHNIQUE: Two views right ribs and frontal view chest COMPARISON: 08/22/2021 FINDINGS: No rib fracture or chest wall deformity. No pleural thickening, contusion or effusion. Lungs are well expanded. Peribronchial thickening suggesting inflammatory change or scarring, similar to 2021. No contusion, effusion or pneumothorax. Bony hypertrophic change obscures the apices, noted at the shoulders and thoracic spine. IMPRESSION: ? ? No acute chest wall abnormality. ? ? Peribronchial inflammatory changes versus interstitial scarring. THIS IS AN ELECTRONICALLY VERIFIED FINAL REPORT 06/10/2024 10:46 AM - Electronically signed by Kashif Li M.D. RB: TED Report ID: [id number] Reading Location: [id number] SHOULDER MIN 2V RIGHT - Comp leted: 06/10/2024 10:35 LOINC: EXAM DESCRIPTION: SHOULDER MIN 2V RIGHT REASON FOR STUDY: fall last night, right shoulder pain Duration: one day TECHNIQUE: 3 view(s) of the right shoulder COMPARISON: 01/09/2024 FINDINGS: No acute fracture or dislocation. Moderate osteoarthritis of the acromioclavicular joint and no significant osteoarthritis of the glenohumeral joint. Partially visualized ACDF. The previously described nodular density in the right upper lobe is not well seen on this examination. CT chest was recommended on the prior chest radiograph. IMPRESSION: No acute osseous abnormality. THIS IS AN ELECTRONICALLY VERIFIED FINAL REPORT 06/10/2024 10:46 AM - Electronically signed by Darell Pires M.D. MM: ANGEL Report ID: [id number] Reading Location: [id number] Social History Type Status Start Date End Date Code Code Syst em Smoking History Current every day smoker [id number] SNOMED CT Sex Female Hospital Discharge Instructions [...] Code System No Known Allergies Moderate Active 042701614 SN OMED-CT No Known Allergies Moderate Active 823437394 SN OMED-CT Plan of Treatment No Data [...]
--- OUTSIDE RECORDS SUMMARY | 2024-10-23 15:49 | XMS_ITS | Encounter Summary ---
Author Organization [facility] Address Formerly [facility], [id number] [place] [address] Care Team Providers Care Block Operator Name Role Phone Eriberto Malone MD Primary Care Provider [phone] None, Provider Primary Care Provider Unavaila ble None, Provider Primary Care Provider Unavaila ble Pearl Marin MD Primary Care Provider [phone] None, Provider Primary Care Provider Unavaila ble Valerie Kilgore MD Primary Care Provider + [phone] Jack Reynaga NP Unavailable [phone] Linda George MD Unavailable Encounter Details Date Type Department Care Team (Late st Contact Info) Description 12/27/2018 Abstract SFL CONVERSION [address] [place] [address] , Generic Conversion, Social History Tobacco Use Types Packs/Day Years Used Date Smoking Tobacco: Smoker, Current Status Unknown Comments Unknown Sex and Gender Information Value Date Recorded Sex Assigned at Female 09/11/2024 10:33 AM GARMENT MANUFACTURER Legal Sex Female 9:47 PM CDT Gender [...] Rule Out 06/21/2020 06/21/2020 06/21/2020 6:49 PM GARMENT MANUFACTURER COVID-19 Rule Out 06/21/2020 06/21/2020 06/22/2020 5:01 PM GARMENT MANUFACTURER COVID-19 Rule Out 07/18/2021 07/18/2021 07/18/2021 9:43 PM GARMENT MANUFACTURER COVID-19 Confirmed Comment:07/28/[address] Dietrich, patient meets [facility] guidelines for discontinuing COVID isolation. (RG) 07/18/2021 07/18/2021 07/28/2021 1:[address] COVID-19 Rule Out 05/08/2024 05/08/2024 05/08/2024 9:36 PM CDT documented as of this encounter Care Teams Block Operator Relationship Specialty Start Date End Date Eriberto Malone MD [address] [place] [id number] PCP - General INTERNAL MEDICINE 12/26/18 06/14/19 None, Provider, PCP - General 06/22/19 09/06/19 None, ProviderMD PCP - General 09/07/19 10/04/19 Pearl Marin MD [address] [place] [address] PCP - General INTERNAL MEDICINE 10/05/19 03/14/23 None, ProviderMD PCP - General UNKNOWN PHYSICIAN SPECIALTY 03/15/23 07/04/23 Valerie Kilgore MD [address] [place] [phone] PCP - General FAMILY PRACTICE 07/05/23 Jack Reynaga NP [address] [place], [place] [phone] Nurse Practitioner Family 01/03/24 Linda George MD [address] [place] [phone] Consulting Physician CARDIOVASCULAR DISEASE 01/03/24 documented as of this encounter
--- OUTSIDE RECORDS SUMMARY | 2024-10-23 15:49 | XMS_ITS ---
Author Organization Unknown Address [address] [place] [address] [phone] Phone Care Team Providers Care Watch Manufacturing Supervisor Name Role Phone ROBNESSAGREY COXIE Attending Unavailable MERY Gasca Primary Unavailable Immunization [...] 187 CVX Pneumococcal conjugate PCV20 , polysaccharide [id number] conjugate, adjuvant, PF 05/08/2023 Completed 216 CVX COVID-19, mRNA, LNP-S, PF, prasad-sucrose, 30 mcg/0.3 mL 04/25/2023 Completed 309 CVX Results NM GASTRIC EMPTYING - Comple corbin: 07/01/2024 12:22 LOINC: EXAM DESCRIPTION: NM GASTRIC EMPTYING REASON FOR STUDY: vomiting wt loss 1 year pt last mounjaro 2.5 dose 12.9.24 for diabetes Duration: 4hr RADIOPHARMACEUTICAL: 1 mCi Tc-99m sulfur colloid incorporated into eggs p.o. TECHNIQUE: After oral ingestion of the radiolabeled meal, sequential anterior and posterior abdominal images were obtained. COMPARISON: None. FINDINGS: At 60 minutes, the residual activity is essentially 100% (normal: 30- 90%). At 120 minutes, the residual activity is essentially 100% (normal: less than 60%). At 180 minutes, the residual activity is essentially 100% (normal: less than 30%). At 240 minutes, the residual activity is 96% (normal: less than 10%). T1/2 emptying time is not applicable. IMPRESSION: Severe abnormal delayed gastric emptying. THIS IS AN ELECTRONICALLY VERIFIED FINAL REPORT 07/01/2024 12:57 PM - Electronically signed by Warner Rhodes M.D. CH: MIRELA Report ID: [id number] Reading Location: [id number] Social History Type Status Start Date End Date Code Code Syst em Smoking History Current every day smoker 527615066 SNOMED CT Sex Female Hospital Discharge Instructions [...] Code System No Known Allergies Moderate Active 525254093 SN OMED-CT No Known Allergies Moderate Active 545761745 SN OMED-CT Plan of Treatment No Data Found Encounters Encounter Diagnosis Start Date Code Code Sys tem Functional dyspepsia 07/01/2024 SNOMED- CT Personal Care Team Section Performer Name Performer Role Active Date Inactive NIKKO Izaguirre PCP - Primary care physician 2021-08-22 2024-01-09 CHANO ORDONEZ PCP - Primary care physician 2024-05-27 Imaging Narrative Notes
--- OUTSIDE RECORDS SUMMARY | 2024-10-23 15:50 | XMS_ITS ---
Author Organization Unknown Address [address] [place] [phone] Phone Care Team Providers Care Bus Trolley And Taxi Instructor Name Role Phone JENNIFFER COXIE Attending Unavailable MERY Gasca Primary Unavailable [...] 187 CVX Pneumococcal conjugate PCV20 , polysaccharide [id number] conjugate, adjuvant, PF 05/08/2023 Completed 216 CVX COVID-19, mRNA, LNP-S, PF, prasad-sucrose, 30 mcg/0.3 mL 04/25/2023 Completed 309 CVX Results LUMBAR SPINE - Completed: 11:55 LOINC: EXAM DESCRIPTION: LUMBAR SPINE REASON FOR STUDY: pain x's 5 years worse since fall hx of sciatica and bulging disc fall 2 weeks ago no previous fx or sx Duration: 5 years TECHNIQUE: Three views COMPARISON: 08/12/2021 CT, pelvic x-ray today. FINDINGS: 5 non rib-bearing lumbar type vertebra. Mild depression superior endplate L2 new from previous suggesting acute compression fracture. No retropulsed bony fragment. No gross extent to posterior elements. Paravertebral soft tissues unremarkable. Mild degenerative change SI joints. IMPRESSION: Mild depression superior endplate L2 new from previous. THIS IS AN ELECTRONICALLY VERIFIED FINAL REPORT 05/27/2024 12:18 PM - Electronically signed by Kashif Li M.D. RB: TED Report ID: [id number] Reading Location: [id number] PELVIS - Completed: 05/27/20 24 11:55 LOINC: EXAM DESCRIPTION: PELVIS REASON FOR STUDY: pain x's 5 years worse since fall hx of sciatica and bulging disc fall 2 weeks ago no previous fx or sx Duration: 5 years TECHNIQUE: Single-view COMPARISON: 08/12/2021 FINDINGS: No fracture or dislocation. Soft tissues unremarkable. Large volume stool. IMPRESSION: No acute findings pelvis. THIS IS AN ELECTRONICALLY VERIFIED FINAL REPORT 05/27/2024 12:17 PM - Electronically signed by Kashif Li M.D. RB: TED Report ID: [id number] Reading Location: [id number] Social History Type Status Start Date End Date Code Code Syst em Smoking History Current every day smoker [id number] SNOMED CT Sex Female Hospital Discharge Instructions [...] Code System No Known Allergies Moderate Active 914296107 SN OMED-CT No Known Allergies Moderate Active 781584650 SN OMED-CT Plan of Treatment No Data Found Encounters Encounter Diagnosis Start Date Code Code Sys tem Lumbago with sciatica, unspecified side 05/27/2024 SNOMED-CT Personal Care Team Section Performer Name Performer Role Active Date Inactive NIKKO Izaguirre PCP - Primary care physician 2021-08-22 2024-01-09 CHANO ORDONEZ PCP - Primary care physician 2024-05-27 Imaging Narrative Notes
--- OUTSIDE RECORDS SUMMARY | 2024-10-23 16:18 | XMS_ITS | CONTINUITY OF CARE DOCUMENT ---
Author Name vinay mclean Address Unknown Organization [facility] Address [address] [place] [address] Phone [phone] Care Team Providers Care Body And Fender Worker Name Role Phone vinay mclean Unavailable Unavailable
--- OUTSIDE RECORDS SUMMARY | 2024-10-23 16:18 | XMS_ITS ---
Author Organization Unknown Address [address] [place] [phone] Phone Care Team Providers Care Industrial Gas Fitter Helper Name Role Phone SHEPARD TAMIKO Attending Unavailable [...] 187 CVX Pneumococcal conjugate PCV20 , polysaccharide [id number] conjugate, adjuvant, PF 05/08/2023 Completed 216 CVX [...] Pedro Serrano M.D. NS: NS Report ID: [id number] Reading Location: [id number] RIBS RIGHT W/ 1V CHEST - Com [...] Kashif Li M.D. RB: TED Report ID: [id number] Reading Location: [id number] SHOULDER MIN 2V RIGHT - Comp leted: [...] Darell Pires M.D. MM: ANGEL Report ID: [id number] Reading Location: [id number] Social History Type Status Start Date End Date Code Code Syst em Smoking History Current every day smoker 500093435 SNOMED CT Sex Female Hospital Discharge Instructions [...] Code System No Known Allergies Moderate Active 246000207 SN OMED-CT No Known Allergies Moderate Active 356145750 SN OMED-CT Plan of Treatment No Data [...]
--- OUTSIDE RECORDS SUMMARY | 2024-10-23 16:18 | XMS_ITS ---
Author Organization Unknown Address [address] [place] [phone] Phone Care Team Providers Care Underwriting Assistant Name Role Phone ROBNESSAGREY COXIE Attending Unavailable [...] 187 CVX Pneumococcal conjugate PCV20 , polysaccharide MNF014 conjugate, adjuvant, PF 05/08/2023 Completed 216 CVX [...] Warner Rhodes M.D. CH: MIRELA Report ID: [id number] Reading Location: [id number] Social History Type Status Start Date End Date Code Code Syst em Smoking History Current every day smoker 362503742 SNOMED CT Sex Female Hospital Discharge Instructions [...] Code System No Known Allergies Moderate Active 630846957 SN OMED-CT No Known Allergies Moderate Active 002111949 SN OMED-CT Plan of Treatment No Data Found Encounters Encounter Diagnosis Start Date Code Code Sys tem Functional dyspepsia 07/01/2024 SNOMED- CT Personal Care Team Section Performer Name Performer Role Active Date Inactive NIKKO Izaguirre PCP - Primary care physician 2021-08-22 2024-01-09 CHANO ORDONEZ PCP - Primary care physician 2024-05-27 Imaging Narrative Notes
--- OUTSIDE RECORDS SUMMARY | 2024-10-23 16:18 | XMS_ITS ---
Author Organization Unknown Address [address] [place] [address] [phone] Phone Care Team Providers Care Administrative Analyst Name Role Phone MATEUSZ US Attending Unavailable [...] 187 CVX Pneumococcal conjugate PCV20 , polysaccharide PVD426 conjugate, adjuvant, PF 05/08/2023 Completed 216 CVX [...] Shoshana Irizarry M.D. TW: TW Report ID: [id number] Reading Location: [id number] Social History Type Status Start Date End Date Code Code Syst em Smoking History Current every day smoker 055737154 SNOMED CT Sex Female Hospital Discharge Instructions [...] Code System No Known Allergies Moderate Active 010462399 SN OMED-CT No Known Allergies Moderate Active 753563638 SN OMED-CT Plan of Treatment No Data Found Encounters Encounter Diagnosis Start Date Code Code Sys tem Contusion of right shoulder, initial encounter 024 SNOMED-CT Personal Care Team Section Performer Name Performer Role Active Date Inactive NIKKO Izaguirre PCP - Primary care physician 2021-08-22 2024-01-09 CHANO ORDONEZ PCP - Primary care physician 2024-05-27 Imaging Narrative Notes
--- OUTSIDE RECORDS SUMMARY | 2024-10-23 16:18 | XMS_ITS | Encounter Summary ---
Author Organization [facility] Address [facility] [place] [address] Care Team Providers Care Habitat Conservation Planner Name Role Phone Eriberto Malone MD Primary Care Provider [phone] None, Provider Primary Care Provider Unavaila ble None, Provider Primary Care Provider Unavaila ble Pearl Marin MD Primary Care Provider [phone] None, Provider Primary Care Provider Unavaila ble Valerie Kilgore MD Primary Care Provider + [phone] Jack Reynaga NP Unavailable [phone] Linda George MD Unavailable Encounter Details Date Type Department Care Team (Late st Contact Info) Description 12/27/2018 Abstract SFL CONVERSION [address] [place] [address] , Generic Conversion, Social History Tobacco Use Types Packs/Day Years Used Date Smoking Tobacco: Smoker, Current Status Unknown Comments Unknown Sex and Gender Information Value Date Recorded Sex Assigned at Female 09/11/2024 10:33 AM ORNAMENTAL IRONWORKING SUPERVISOR Legal Sex Female 9:47 PM CDT Gender [...] Rule Out 06/21/2020 06/21/2020 06/21/2020 6:49 PM ORNAMENTAL IRONWORKING SUPERVISOR COVID-19 Rule Out 06/21/2020 06/21/2020 06/22/2020 5:01 PM ORNAMENTAL IRONWORKING SUPERVISOR COVID-19 Rule Out 07/18/2021 07/18/2021 07/18/2021 9:43 PM ORNAMENTAL IRONWORKING SUPERVISOR COVID-19 Confirmed Comment:07/28/[address] Dietrich, patient meets [facility] guidelines for discontinuing COVID isolation. (RG) 07/18/2021 07/18/2021 07/28/2021 1:[address] COVID-19 Rule Out 05/08/2024 05/08/2024 05/08/2024 9:36 PM CDT documented as of this encounter Care Teams Habitat Conservation Planner Relationship Specialty Start Date End Date Eriberto Malone MD [address] [place] [id number] PCP - General INTERNAL MEDICINE 12/26/18 06/14/19 None, Provider, PCP - General 06/22/19 09/06/19 None, ProviderMD PCP - General 09/07/19 10/04/19 Pearl Marin MD [address] [place] [id number] PCP - General INTERNAL MEDICINE 10/05/19 03/14/23 None, ProviderMD PCP - General UNKNOWN PHYSICIAN SPECIALTY 03/15/23 07/04/23 Valerie Kilgore MD [address] [place] [phone] PCP - General FAMILY PRACTICE 07/05/23 Jack Reynaga NP [address] [place], [place] [phone] Nurse Practitioner Family 01/03/24 Linda George MD [address] [place] [phone] Consulting Physician CARDIOVASCULAR DISEASE 01/03/24 documented as of this encounter
--- OUTSIDE RECORDS SUMMARY | 2024-10-23 16:18 | XMS_ITS | Encounter Summary ---
Author Organization [facility] Address [facility] [place] [address] Care Team Providers Care Postal Delivery Officer Name Role Phone Eriberto Malone MD Primary Care Provider [phone] None, Provider Primary Care Provider Unavaila ble None, Provider Primary Care Provider Unavaila ble Pearl Marin MD Primary Care Provider [phone] None, Provider Primary Care Provider Unavaila ble Valerie Kilgore MD Primary Care Provider + [phone] Jack Reynaga NP Unavailable +[phone] Linda George MD Unavailable Encounter Details Date Type Department Care Team (Late st Contact Info) Description 10/05/2017 Abstract SJS CONVERSION [address] [place] [address] , Generic Conversion, Social History Tobacco Use Types Packs/Day Years Used Date Smoking Tobacco: Smoker, Current Status Unknown Comments Unknown Sex and Gender Information Value Date Recorded Sex Assigned at Female 09/11/2024 10:33 AM COT ASSEMBLER Legal Sex Female 9:47 PM CDT Gender [...] Rule Out 06/21/2020 06/21/2020 06/21/2020 6:49 PM COT ASSEMBLER COVID-19 Rule Out 06/21/2020 06/21/2020 06/22/2020 5:01 PM COT ASSEMBLER COVID-19 Rule Out 07/18/2021 07/18/2021 07/18/2021 9:43 PM COT ASSEMBLER COVID-19 Confirmed Comment:07/28/[address] Dietrich, patient meets [facility] guidelines for discontinuing COVID isolation. (RG) 07/18/2021 07/18/2021 07/28/2021 1:[address] COVID-19 Rule Out 05/08/2024 05/08/2024 05/08/2024 9:36 PM CDT documented as of this encounter Care Teams Postal Delivery Officer Relationship Specialty Start Date End Date Eriberto Malone MD [address] [place] [phone] PCP - General INTERNAL MEDICINE 12/26/18 06/14/19 None, Provider, PCP - General 06/22/19 09/06/19 None, ProviderMD PCP - General 09/07/19 10/04/19 Pearl Marin MD [address] [place] [id number] PCP - General INTERNAL MEDICINE 10/05/19 03/14/23 None, ProviderMD PCP - General UNKNOWN PHYSICIAN SPECIALTY 03/15/23 07/04/23 Valerie Kilgore MD [address] [place] [phone] PCP - General FAMILY PRACTICE 07/05/23 Jack Reynaga NP [address] [place] [phone] Nurse Practitioner Family 01/03/24 Linda George MD [address] [place] [phone] Consulting Physician CARDIOVASCULAR DISEASE 01/03/24 documented as of this encounter
--- OUTSIDE RECORDS SUMMARY | 2024-10-23 16:19 | XMS_ITS ---
Author Organization Unknown Address [address] [place] [phone] Phone Care Team Providers Care Statement Distribution Clerk Name Role Phone JENNIFFER COXIE Attending Unavailable [...] 187 CVX Pneumococcal conjugate PCV20 , polysaccharide TAU020 conjugate, adjuvant, PF 05/08/2023 Completed 216 CVX [...] Kashif Li M.D. RB: TED Report ID: [id number] Reading Location: [id number] PELVIS - Completed: 05/27/20 24 11:55 LOINC: [...] Kashif Li M.D. RB: TED Report ID: [id number] Reading Location: [id number] Social History Type Status Start Date End Date Code Code Syst em Smoking History Current every day smoker 739315241 SNOMED CT Sex Female Hospital Discharge Instructions [...] Code System No Known Allergies Moderate Active 427384309 SN OMED-CT No Known Allergies Moderate Active 444681012 SN OMED-CT Plan of Treatment No Data Found Encounters Encounter Diagnosis Start Date Code Code Sys tem Lumbago with sciatica, unspecified side 05/27/2024 SNOMED-CT Personal Care Team Section Performer Name Performer Role Active Date Inactive NIKKO Izaguirre PCP - Primary care physician 2021-08-22 2024-01-09 CHANO ORDONEZ PCP - Primary care physician 2024-05-27 Imaging Narrative Notes
--- OUTSIDE RECORDS SUMMARY | 2024-10-23 16:19 | XMS_ITS | Clinical Summary ---
Author Organization [facility] Address [address] [place] [address] Care Team Providers Care Web Development Intern Name Role Phone Valerie Demarco MD Primary Care Provider [phone]- [phone] Christy Reynaga MORTGAGE FIELD INSPECTOR Unavailable +[phone] Linda George MD Unavailable Allergies Active Allergy [...] Acute diverticulitis 08/11/2023 Encephalopathy 03/15/2023 Status epilepticus ([facility]) 08/12/2022 Sepsis ([facility]) 07/28/2021 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 ([facility]) 07/28/2021 Necrotizing fasciitis ([facility]) 07/19/20 21 Chest pain 02/05/2020 HTN (hypertension) 02/05/2020 Resolved Problems Problem Noted Date Diagnosed Date Resolved Date Hypotension (arterial) 06/21/202006/22 Diabetes mellitus ([facility]) 02/05/2020 02/05/2020 Encounters Date Type Department Care Team Description 10/07/2024 1:02 PM CDT - 10/07/2024 11:59 PM CDT Hospital Encounter [facility] [address] [place] [address] Valerie Demarco MD Discharge Disposition: Home or Self Care (Routine Discharge) 10/07/2024 Travel 09/28/2024 2:58 AM CDT - 09/28/2024 5:19 AM CDT Emergency [facility] [address] [place] [address] Burt Trammell, DO Back Pain Discharge Disposition: Home or Self Care (Routine Discharge) 09/28/2024 Travel 07/30/2024 Transcribe Orders [facility] [address] [place] [address] Leonor Montaño FNP from Last 3 Months [...] drink = 0.6 oz pur e alcohol) [facility] [employer] Answer Date Recorded In the past 12 months has e [employer], gas, oil, or water [employer] threatened to shut off services in your [...] declined 06/21/2020 How often do you attend religion or baptist serv ices? Patient declined 06/21/2020 Do you belong to any clubs o r organizations such as religion groups, unions, fraternal or athletic groups, or [...] and heating? Not hard at all 08/11/2023 [facility] - Occupational Stress Questionnaire Answer Date Recorded [...] place to sleep or slept in a retirement (including now)? No 08/11/2023 Comments No Sex and Gender Information Value Date Recorded Sex Assigned at Female 09/11/2024 10:33 AM BIRTH ATTENDANT Legal Sex Female 9:47 PM CDT Gender [...] support at home upon discharge Cinthya Wang, bookie Procedure Name Priority Date/Time Associated Diagnosis Comments [...] 3:06 PM Narrative 10/07/2024 3:06 PM [address] [place] [address] Examination: Digital screening mammogram with CAD. Clinical [...] HEMOGLOBIN, GLYCOSYLATED (03/27/2024 5:16 PM CDT) Pathologist [facility] HGB A1C 10.5(H) <5.7 % 03/28/2024 5:01 PM CDT [facility] ESTIMATED AVG GLUCOSE 255(H) 74 - 114 MG/DL 03/28/2024 5:01 PM CDT [facility] 03/27/2024 5:16 PM CDT Christy Reynaga NP LABORATORY Fin al Result [facility] [address] [place] [address], [id number] * (ABNORMAL) LIPID PANEL (03/27/2024 5:16 PM CDT) Pathologist [facility] CHOLESTEROL 201 MG/DL 03/28/2024 4:24 PM CDT [facility] Comment:BORDERLINE HIGH: 200 -239 TRIGLYCERIDES 264 MG/DL 03/28/2024 4:24 PM CDT [facility] Comment:200-499 HIGH HDL 31(L) >49 MG/DL 03/28/2024 4:24 PM CDT [facility] LDL-C 117 MG/DL 03/28/2024 4:24 PM CDT [facility] Comment:100-129 NEAR OR ABOV E OPTIMAL VLDL CALCULATION 53 MG/DL 03/28/20 4:24 PM CDT [facility] Comment:REFERENCE RANGE NOT ESTABLISHED CHOL/HDL RATIO 6.5 03/28/2024 4:24 PM CDT [facility] Comment:REFERENCE RANGE NOT ESTABLISHED LDL/HDL 3.8 03/28/2024 4:24 PM CDT [facility] Comment:REFERENCE RANGE NOT ESTABLISHED NON HDL CHOLESTEROL 170 MG/DL 03/28/2024 4:24 PM CDT [facility] Comment:REFERENCE RANGE NOT ESTABLISHED 03/27/2024 5:16 PM CDT Christy Reynaga NP LABORATORY Fin al Result Performing Organization Address [facility] Co de Phone Number [facility] [address] [place] [address], [id number] * HEPATITIS C ANTIBODY (03/27/2024 5:16 PM CDT) Pathologist [facility] HEPATITIS C AB NON-REACTI VE NON-REACT JUDY 03/28/2024 6:13 PM CDT [facility] Comment: ANTIBODIES TO HCV NOT DETECTED. DOES NOT EXCLUDE THE POSSIBILITY OF EXPOSURE TO HCV. 03/27/2024 5:16 PM CDT Christy Muirwilman MORTGAGE FIELD INSPECTOR LABORATORY Fin al Result [facility] [address] [place] [address], [phone] * CT CHEST WO CON (03/10/2024 2:13 [...] 3:18 PM Narrative 03/19/2024 3:24 PM CDT [address] [place] [address] Examination: CT of the chest without contrast. [...] Procedure Note Galdino Carreon MD - 03/19/2024 [facility] [address] [place] [address] Examination: CT of the chest without contrast. [...] Carreon MD, 03/19/2024 3:18 PM Christy Reynaga MORTGAGE FIELD INSPECTOR CT Fin al Result from Last 3 Months or Most Recently Relevant to Health Maintenance Additional Health Concerns Infection Onset Date Last Indicated ESBL - Extended Spectrum Bet a-lactamase Comment:07/19/21 abscess tissue (SB) 08/05/2018 08/05/[address] [place] [address] [place] [address] Advance Directives Documents on File Type Date Recorded Patient Pin Cleaner Expl anation Guardianship - Permanent 04/07/2018 12:00 AM PHYSICIAN CERTIFICATION STATEMENT Legal Documents 05/09/2014 12:00 AM [facility] OF RECORD * Full Code (Latest Code [...] 3:50 PM 10/08/2021 4:02 PM Care Teams Web Development Intern Relationship Specialty Start Date End Date Valerie Demarco MD [address] [place] [phone] PCP - General FAMILY PRACTICE 07/05/23 Christy Reynaga NP [address] [place] [phone] Nurse Practitioner Family 01/03/24 Linda George MD [address] [place] [address] Consulting Physician CARDIOVASCULAR DISEASE 01/03/24
--- OUTSIDE RECORDS SUMMARY | 2024-10-23 16:19 | XMS_ITS ---
Author Organization Unknown Address [address] [place] [phone] Phone Care Team Providers Care Business Center Manager Name Role Phone KWAME Larose Attending Unavailable [...] 187 CVX Pneumococcal conjugate PCV20 , polysaccharide [id number] conjugate, adjuvant, PF 05/08/2023 Completed 216 CVX COVID-19, mRNA, LNP-S, PF, prasad-sucrose, 30 mcg/0.3 mL 04/25/2023 Completed 309 CVX Social History Type Status Start Date End Date Code Code Syst em Smoking History Current every day smoker 645620455 SNOMED CT Sex Female Hospital Discharge Instructions [...] Code System No Known Allergies Moderate Active 650568911 SN OMED-CT No Known Allergies Moderate Active 480242387 SN OMED-CT Plan of Treatment No Data Found Encounters Encounter Diagnosis Start Date Code Code Sys tem Low back pain, unspecified 05/06/2024 S NOMED-CT Personal Care Team Section Performer Name Performer Role Active Date Inactive Da NIKKO Torres PCP - Primary care physician 2021-08-22 2024-01-09 CHANO ORDONEZ PCP - Primary care physician 2024-05-27
[2024-10-23] MEDS: HYDROcodone/acetaminophen (*CRX) 5-325 MG TABLET 1 TAB PO ×2 (16:23→18:18)
[2024-10-23 16:30] VITALS: BP 146/76; PULSE 71; RESP 16; O2SAT 96
[2024-10-23 17:00] VITALS: BP 144/70; PULSE 68; RESP 17; O2SAT 96
[2024-10-23] MEDS: KETOROLAC (*BKC) 60 MG/2 ML VIAL IM (17:21)
[2024-10-23 17:30] VITALS: BP 154/95; PULSE 72; RESP 17; O2SAT 97
[2024-10-23 18:19] VITALS: BP 154/83; PULSE 71; RESP 17; TEMP 36.8; O2SAT 96
== END 2024-10-23 18:19 | disposition home or self-care (01) ==
PROVIDERS: Emergency Provider Emergency Medicine; PCP Family Medicine
DX: S23.3XXA Sprain of ligaments of thoracic spine, initial encounter (principal); W10.8XXA Fall (on) (from) other stairs and steps, initial encounter
CPT/HCPCS: 72072; 96372; 99283; A9270; J1885

== ENCOUNTER 2024-11-09 17:00 | Emergency (ER) | payer MEDICARE, MEDICAID, SELFPAY ==
--- NOTE | ~2024-11-09 | CT_ITS ---
EXAMINATION: CT chest abdomen pelvis w con DATE: 11/09/2024 18:43 INDICATION: abdominal pain, past surgery stomach, nausea/vomit . TECHNIQUE: Computed tomography (CT) of the chest, abdomen, and pelvis was performed with 100 mL Omnip aque-350 intravenous contrast. Automated exposure control and iterative reconstruction technique were employed. The dose-length product was 293.00 mGy-cm. COMPARISON: 06/03/2016; x-ray T-spine 10/23/2024 FINDINGS: CHEST: Thoracic aorta: No significant dilation. No dissection. Lung parenchyma and airways: Mild emphysematous change. Scattered sub-6 mm pulmonary nodules. Thoracic inlet, axillae and chest wall: No thyroid or soft tissue mass. No axillary lymphadenopathy. Mediastinum: No mass or lymphadenopathy. Heart and pericardium: Normal heart size. No pericardial effusion. Coronary artery calcifications: Mild. Pleura: No effusion or mass. Thoracic bones: No acute osseous finding in the chest. ABDOMEN/PELVIS: Liver: Enlarged. Diffuse fatty infiltration. Biliary/Gallbladder: Gallbladder is absent. Mild intra and extrahepatic bile duct dilation, without o bstructing stone or mass. Pancreas: Mild atrophy Spleen: Normal. Adrenals:No mass. Kidneys: No suspicious mass, obstructing stone, or hydronephrosis. GI tract: Mild gastric distention. Mild distal esophageal and gastric wall edema. Hyperemia of the ga stric and proximal duodenal mucosa. No small or large bowel dilation. Mild short segment wall edema i n the proximal sigmoid, without significant chronic inflammatory change. Uniform small and large michael l wall enhancement. Normal appendix. Mesentery/Peritoneum: No ascites, mass, or free air. Retroperitoneum: No mass Atherosclerotic calcifications of intra-abdominal arterial vessels. Pelvis: Absent uterus. Normal urinary bladder. Bilateral ovaries not confidently visualized. Soft Tissues: Soft tissues and body wall unremarkable. Abdominopelvic bones: Superior endplate deformity and mild anterior wedge deformity at L2. IMPRESSION: Mild emphysema. Multiple sub-6 mm pulmonary nodules, probably representing benign granulomas. No follow-up is recomme nded unless the patient is at high risk, in which case consider an optional low-dose noncontrast CT i n one year. Mild esophagitis. Gastritis and proximal duodenitis, with mild gastric distention. Hepatomegaly and steatosis. Mild intra and extrahepatic bile duct dilation, likely secondary to cholecystectomy in the absence of biliary laboratory abnormalities or right upper quadrant pain. Short segment sigmoid wall edema may reflect mild/early infectious, inflammatory, or ischemic colitis . Possible acute mild compression fracture at L2 Reviewed, dictated and finalized at location K. IMPRESSION: Mild emphysema. Multiple sub-6 mm pulmonary nodules, probably representing benign granulomas. N o follow-up is recommended unless the patient is at high risk, in which case co nsider an optional low-dose noncontrast CT in one year. Mild esophagitis. Gastritis and proximal duodenitis, with mild gastric distention. Hepatomegaly and steatosis. Mild intra and extrahepatic bile duct dilation, likely secondary to cholecystec mariluz in the absence of biliary laboratory abnormalities or right upper quadrant pain. Short segment sigmoid wall edema may reflect mild/early infectious, inflammator y, or ischemic colitis. Possible acute mild compression fracture at L2
[2024-11-09 17:08] VITALS: BP 121/87; PULSE 119; RESP 18; TEMP 36.6; O2SAT 96
--- NOTE | 2024-11-09 17:08 | PC.NURSE ---
covid culture sent to lab
[2024-11-09] MEDS: SODIUM CHLORIDE 0.9% IV 1,000 ML 999 ML IV CONT (17:33)
[2024-11-09] MEDS: MORPHINE SULFATE (*CRX) 4 MG/ML INJ IV PUSH (17:34)
[2024-11-09] MEDS: ONDANSETRON INJ 4 MG/2 ML VIAL IV PUSH (17:34)
[2024-11-09 17:41] LABS: Basophils Absolute Auto 0.04 K/mm3 (0.00-0.10); Basophils Percent Auto 0.4 % (0.0-1.0); Eosinophils Absolute Auto 0.13 K/mm3 (0.02-0.50); Eosinophils Percent Auto 1.3 % (1.0-6.0); Hematocrit 50.7 % (35.0-49.0); Hemoglobin 16.9 g/dL (12.0-15.0); Immature Granulocyte Absolute 0.03 K/mm3 (0.00-0.00); Immature Granulocyte Percent A 0.3 % (0.0-0.0); Lymphocytes Absolute Auto 1.99 K/mm3 (1.10-4.50); Lymphocytes Percent Auto 19.1 % (18.0-42.0); Mean Corpuscular HGB Conc 33.3 g/dL (32-36); Mean Corpuscular Hemoglobin 29.6 pg (27.0-31.0); Mean Corpuscular Volume 88.8 fL (78.0-102.0); Mean Platelet Volume 11.8 fl (9.2-11.8); Monocytes Absolute Auto 0.76 K/mm3 (0.10-0.90); Monocytes Percent Auto 7.3 % (2.0-11.0); Neutrophils Absolute Auto 7.45 K/mm3 (1.70-7.20); Neutrophils Percent Auto 71.6 % (50.0-70.0); Platelet Count Result 236 K/mm3 (150-420); Red Blood Count 5.71 M/mm3 (4.20-5.40); Red Cell Distribution Width 12.7 % (11.6-14.4); White Blood Count 10.4 K/mm3 (4.8-10.8)
[2024-11-09 17:55] LABS: Appearance Urine Clear (Clear); Bilirubin Urine 2+ (Negative); Blood Urine Negative (Negative); Glucose Urine UA 1+ (Negative); Ketones Urine Trace (Negative); Leukocyte Esterase Ur Negative LEU/UL (Negative); Nitrate Urine Positive (Negative); Protein Urine 2+ (Negative); Specific Grav Ur >= 1.030 (1.010-1.020)
[2024-11-09 17:55] LABS: Alanine Aminotransferase 15 U/L (14-59); Albumin Level 4.2 g/dL (3.4-5.0); Alkaline Phosphatase 155 U/L (46-116); Anion Gap 14 mmol/L (4-12); Aspartate Amino Transferase < 10 U/L (15-37); Bilirubin,Total 0.8 mg/dL (0.00-1.00); Blood Urea Nitrogen 40 mg/dL (7-18); Calcium 9.8 mg/dL (8.5-10.1); Carbon Dioxide 31 mmol/L (21-32); Chloride 89 mmol/L (98-108); Estimated CRCL calculation 29 ml/min; Estimated Glomerular Filt Rate 37; Glucose 314 mg/dL (70-99); Lipase 21 U/L (16-77); Osmolality Calculated 299 mOsm/kg (285-295); Potassium 3.1 mmol/L (3.5-5.1); Sodium 134 mmol/L (136-145); Total Protein 9.1 g/dL (6.4-8.2)
[2024-11-09 18:04] LABS: Add Urine Microscopic? YES; Bacteria Urine 2+ /hpf; Color Urine Dark Orange (Yellow); RBC Urine None seen /hpf (0-2); Squamous Epithelial Cell Urine Few /hpf (Few); WBC Urine None seen /hpf (0-3)
--- OUTSIDE RECORDS SUMMARY | 2024-11-09 18:05 | XMS_ITS | Clinical Summary ---
Author Organization [facility] Address [address] [place] [address] Care Team Providers Care Trailer Mechanic Name Role Phone Valerie Demarco MD Primary Care Provider [phone]- [phone] Christy Del Rosario STUDIO ASSISTANT Unavailable [phone] Linda George MD Unavailable Allergies Active Allergy Reactions Criticality Noted Date Comments Bee Venom Unknown 08/02/2021 Medications DULoxetine HCl 30 MG Capsule Delayed Release SprinkleIndication s:Depression Take 90 mg by mouth daily. Indications: Depression 07/31/19 22 Active albuterol sulfate HFA 108 (90 Base) MCG/ACT inhalerIndications :Shortness of breath Take 1 puff by mouth every 4 (four) hours as needed for Shortness of breath. Indications: Shortness of breath 07/17/20 12 Active famotidine (PEPCID) 40 MG tabletIndications: Acid Regurgitation Take 1 tablet (40 mg total) [...] topically 2 (two) times daily. 56 g 02/14/20 24 Active metroNIDAZOLE (FLAGYL) 500 MG tablet Take 1 tablet (500 mg total) by mouth 3 (three) times daily. Active naloxone (NARCAN) 4 MG/0.1ML nasal spray 1 spray by Nasal route as needed for Opioid reversal. may repeat every 2 to 3 minutes in alternating nostrils until medical assistance becomes available 1 each 05/09/20 24 025 Active oxyCODONE-acetamin ophen (PERCOCET) 5-325 MG tabletIndications: Acute Pain < 3 Day Supply Take 1 tablet by mouth every 8 (eight) hours as needed for Pain. Indications: Acute Pain < 3 Day Supply 3 tablet 09/29/19 Active Active Problems Problem Noted Date Diagnosed Date Acute diverticulitis 08/11/2023 Encephalopathy 03/15/2023 Status epilepticus ([facility]) 08/12/2022 Sepsis (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) 07/28/2021 Necrotizing fasciitis ([facility]) 07/19/20 21 Chest pain 02/05/2020 HTN (hypertension) 02/05/2020 Resolved Problems Problem Noted Date Diagnosed Date Resolved Date Hypotension (arterial) 06/21/202006/22 Diabetes mellitus ([facility]) 02/05/2020 02/05/2020 Encounters Date Type Department Care Team Description 10/07/2024 1:02 PM CDT - 10/07/2024 11:59 PM CDT Hospital Encounter [facility] [address] [place] [address] Valerie Demarco MD Discharge Disposition: Home or Self Care (Routine Discharge) 10/07/2024 Travel 09/28/2024 2:58 AM CDT - 09/28/2024 5:19 AM CDT Emergency [facility] [address] [place] [address] Burt Trammell, Back Pain Discharge Disposition: Home or Self Care (Routine Discharge) 09/28/2024 Travel from Last 3 Months Immunizations Immunization Administration Dates Next Due Fluzone 6 Months+ [...] drink = 0.6 oz pur e alcohol) [facility] Utilities Answer Date Recorded In the past 12 months has e [employer], gas, oil, or water [employer] threatened to shut off services in your [...] declined 06/21/2020 How often do you attend bahai or christianity serv ices? Patient declined 06/21/2020 Do you belong to any clubs o r organizations such as bahai groups, unions, fraternal or athletic groups, or [...] and heating? Not hard at all 08/11/2023 [facility] - Occupational Stress Questionnaire Answer Date [...] place to sleep or slept in a chcf (including now)? No 08/11/2023 Comments No Sex and Gender Information Value Date Recorded Sex Assigned at Female 09/11/2024 10:33 AM LACER AND TIER Legal Sex Female 9:47 PM CDT Gender [...] 19+ 3-dose series) 1985 COVID-19 Vaccine (2 - 2023- season) 2024 04/25/2023 Hemoglobin A1C 06/26/2024 03/27/2024, 02/20, 08/12/2022, Additional history exists Lung Cancer Screening 03/10/2025 03/10/2024 , 08/10/2023, 06/07/2020 Lipid Panel 03/27/2025 03/27/2024, 02/20, 05/31/2020, Additional history exists Mammogram Screening 10/07/2026 10/07/2024, 06/19/2023, 05/10/2022, Additional history exists Pneumococcal Vaccine: 50+ Years Completed 05/08/2023 Zoster Vaccines Completed 07/12/2023, 05/08/2023 [...] appropriate support at home upon discharge Cinthya Wang RN Procedures Procedure Name Priority Date/Time Associated Diagnosis Comments [...] 3:06 PM Narrative 10/07/2024 3:06 PM CDT [address] [place] [address] Examination: Digital screening mammogram with CAD. Clinical [...] followup in one year would seem adequate. us Valerie Demarco MD MAMMO Final Resu lt * (ABNORMAL) HEMOGLOBIN, GLYCOSYLATED (03/27/2024 5:16 PM CDT) HGB A1C 10.5(H) <5.7 % 03/28/2024 5:01 PM CDT [facility] ESTIMATED AVG GLUCOSE 255(H) 74 - 114 MG/DL 03/28/2024 5:01 PM CDT [facility] 03/27/2024 5:16 PM CDT Christy Del Rosario NP LABORATORY Fin al Result [facility] [address] [place] [address], [id number] * (ABNORMAL) LIPID PANEL (03/27/2024 5:16 PM CDT) CHOLESTEROL 201 MG/DL 03/28/2024 4:24 PM CDT [facility] Comment:BORDERLINE HIGH: 200 -239 TRIGLYCERIDES 264 MG/DL 03/28/2024 4:24 PM CDT [facility] Comment:200-499 HIGH HDL 31(L) >49 MG/DL 03/28/2024 4:24 PM CDT [facility] LDL-C 117 MG/DL 03/28/2024 4:24 PM CDT [facility] Comment:100-129 NEAR OR ABOV E OPTIMAL VLDL CALCULATION 53 MG/DL 03/28/20 4:24 PM CDT [facility] Comment:REFERENCE RANGE NOT ESTABLISHED CHOL/HDL RATIO 6.5 03/28/2024 4:24 PM CDT [facility] Comment:REFERENCE RANGE NOT ESTABLISHED LDL/HDL 3.8 03/28/2024 4:24 PM CDT [facility] Comment:REFERENCE RANGE NOT ESTABLISHED NON HDL CHOLESTEROL 170 MG/DL 03/28/2024 4:24 PM CDT [facility] Comment:REFERENCE RANGE NOT ESTABLISHED 03/27/2024 5:16 PM CDT [facility] STUDIO ASSISTANT LABORATORY Fin al Result Performing Organization Address [facility] de Phone Number [facility] [address] [place] [address], [id number] * HEPATITIS C ANTIBODY (03/27/2024 5:16 PM CDT) HEPATITIS C AB NON-REACTI VE NON-REACT JUDY 03/28/2024 6:13 PM CDT [facility] Comment: ANTIBODIES TO HCV NOT DETECTED. DOES NOT EXCLUDE THE POSSIBILITY OF EXPOSURE TO HCV. 03/27/2024 5:16 PM CDT [facility] STUDIO [facility]IST[facility] LABORATORY Fin al Result Performing Organization Address [facility] de Phone Number [facility] [address] [place] [address], [place] [phone] * CT CHEST WO CON (03/10/2024 2:13 [...] Centrilobular and paraseptal emphysema. Ordered By: CHRISTY DEL ROSARIO Interpreted By: Galdino Carreon MD, 03/19/2024 3:18 PM Narrative 03/19/2024 3:24 PM CDT [facility] [address] [facility] [place] [address] Examination: CT of the chest without contrast. [...] Procedure Note Galdino Carreon MD - 03/19/[address] [place] [address] Examination: CT of the chest without contrast. [...] Centrilobular and paraseptal emphysema. Ordered By: CHRISTY DEL ROSARIO Interpreted By: Galdino Carreon MD, 03/19/2024 3:18 PM Christy Del Rosario STUDIO ASSISTANT CT Fin al Result from Last 3 Months or Most Recently Relevant to Health Maintenance Additional Health Concerns Infection Onset Date Last Indicated ESBL - Extended Spectrum Bet a-lactamase Comment:07/19/21 abscess tissue (SB) 08/05/2018 08/05/2018 Insurance MEDICAID [employer] Advance Directives Documents on File Type Date Recorded Patient Dehydrogenation Operator Head Expl anation Guardianship - Permanent 04/07/2018 12:00 AM PHYSICIAN CERTIFICATION STATEMENT Legal Documents 05/09/2014 12:00 AM DETENTION OF RECORD * Full Code (Latest Code [...] 3:50 PM 10/08/2021 4:02 PM Care Teams Trailer Mechanic Relationship Specialty Start Date End Date Valerie Demarco MD [address] [place] [phone] PCP - General FAMILY PRACTICE 07/05/23 Christy Del Rosario NP [address] [place] [phone] Nurse Practitioner Family 01/03/24 Linda George MD [address] [place] [address] Consulting Physician CARDIOVASCULAR DISEASE 01/03/24
--- OUTSIDE RECORDS SUMMARY | 2024-11-09 18:05 | XMS_ITS ---
Author Organization Unknown Address [address] [place] [phone] Phone Care Team Providers Care Payroll Examiner Name Role Phone SHEPARD EDGAR Attending Unavailable MERY Gasca Primary Unavailable Immunization [...] 187 CVX Pneumococcal conjugate PCV20 , polysaccharide [id number] conjugate, adjuvant, PF 05/08/2023 Completed 216 CVX [...] Pedro Serrano M.D. NS: NS Report ID: [id number] Reading Location: [id number] RIBS RIGHT W/ 1V CHEST - Com [...] Kashif Li M.D. RB: TED Report ID: [id number] Reading Location: [id number] SHOULDER MIN 2V RIGHT - Comp leted: [...] Darell Pires M.D. MM: ANGEL Report ID: [id number] Reading Location: [id number] Social History Type Status Start Date End Date Code Code Syst em Smoking History Current every day smoker 220996672 SNOMED CT Sex Female Hospital Discharge Instructions [...] Code System No Known Allergies Moderate Active 524354735 SN OMED-CT No Known Allergies Moderate Active 311001693 SN OMED-CT Plan of Treatment No Data [...]
--- OUTSIDE RECORDS SUMMARY | 2024-11-09 18:05 | XMS_ITS ---
Author Organization Unknown Address [address] [place] [phone] Phone Care Team Providers Care Abrasive Grader Name Role Phone ROBNESSAGREY COXIE Attending Unavailable [...] 187 CVX Pneumococcal conjugate PCV20 , polysaccharide [id number] conjugate, adjuvant, PF 05/08/2023 Completed 216 CVX [...] Warner Rhodes M.D. CH: MIRELA Report ID: [id number] Reading Location: [id number] Social History Type Status Start Date End Date Code Code Syst em Smoking History Current every day smoker 266773169 SNOMED CT Sex Female Hospital Discharge Instructions [...] Code System No Known Allergies Moderate Active 095263575 SN OMED-CT No Known Allergies Moderate Active 258643012 SN OMED-CT Plan of Treatment No Data Found Encounters Encounter Diagnosis Start Date Code Code Sys tem Functional dyspepsia 07/01/2024 SNOMED- CT Personal Care Team Section Performer Name Performer Role Active Date Inactive NIKKO Izaguirre PCP - Primary care physician 2021-08-22 2024-01-09 CHANO ORDONEZ PCP - Primary care physician 2024-05-27 Imaging Narrative Notes
--- OUTSIDE RECORDS SUMMARY | 2024-11-09 18:05 | XMS_ITS | CONTINUITY OF CARE DOCUMENT ---
Author Name vinay mclean Address Unknown Organization [facility] Address [address] [facility] [address] [place] [address] Phone [phone] Care Team Providers Care Golf Course Mechanic Name Role Phone vinay mclean Unavailable Unavailable
--- OUTSIDE RECORDS SUMMARY | 2024-11-09 18:05 | XMS_ITS ---
Author Organization Unknown Address [address] [place] [address] [phone] Phone Care Team Providers Care Hvac Controls Technician Name Role Phone MATEUSZ US Attending Unavailable [...] 187 CVX Pneumococcal conjugate PCV20 , polysaccharide [id number] conjugate, adjuvant, PF 05/08/2023 Completed 216 CVX [...] Shoshana Irizarry M.D. TW: TW Report ID: [id number] Reading Location: [id number] Social History Type Status Start Date End Date Code Code Syst em Smoking History Current every day smoker 266994514 SNOMED CT Sex Female Hospital Discharge Instructions [...] Code System No Known Allergies Moderate Active 687847111 SN OMED-CT No Known Allergies Moderate Active 941624335 SN OMED-CT Plan of Treatment No Data Found Encounters Encounter Diagnosis Start Date Code Code Sys tem Contusion of right shoulder, initial encounter 024 SNOMED-CT Personal Care Team Section Performer Name Performer Role Active Date Inactive NIKKO Izaguirre PCP - Primary care physician 2021-08-22 2024-01-09 CHANO ORDONEZ PCP - Primary care physician 2024-05-27 Imaging Narrative Notes
--- OUTSIDE RECORDS SUMMARY | 2024-11-09 18:05 | XMS_ITS | Encounter Summary ---
Author Organization [facility] Address [facility] [place] [address] Care Team Providers Care Radio Presenter Name Role Phone Eriberto Malone MD Primary Care Provider [phone] None, Provider Primary Care Provider Unavaila ble None, Provider Primary Care Provider Unavaila ble Pearl Marin MD Primary Care Provider [phone] None, Provider Primary Care Provider Unavaila ble Valerie Kilgore MD Primary Care Provider + [phone] Jack Reynaga NP Unavailable [phone] Linda George MD Unavailable Encounter Details Date Type Department Care Team (Late st Contact Info) Description 10/05/2017 Abstract [facility] CONVERSION [address] [place] [address] , Generic Conversion, Social History Tobacco Use Types Packs/Day Years Used Date Smoking Tobacco: Smoker, Current Status Unknown Comments Unknown Sex and Gender Information Value Date Recorded Sex Assigned at Female 09/11/2024 10:33 AM RUG TOUCH UP PAINTER Legal Sex Female 9:47 PM CDT Gender [...] Rule Out 06/21/2020 06/21/2020 06/21/2020 6:49 PM RUG TOUCH UP PAINTER COVID-19 Rule Out 06/21/2020 06/21/2020 06/22/2020 5:01 PM RUG TOUCH UP PAINTER COVID-19 Rule Out 07/18/2021 07/18/2021 07/18/2021 9:43 PM RUG TOUCH UP PAINTER COVID-19 Confirmed Comment:07/28/[address] Dietrich, patient meets [facility] guidelines for discontinuing COVID isolation. (RG) 07/18/2021 07/18/2021 07/28/2021 1:[address] COVID-19 Rule Out 05/08/2024 05/08/2024 05/08/2024 9:36 PM CDT documented as of this encounter Care Teams Radio Presenter Relationship Specialty Start Date End Date Eriberto Malone MD [address] [address] PCP - General INTERNAL MEDICINE 12/26/18 06/14/19 None, ProviderMD PCP - General 06/22/19 09/06/19 None, ProviderMD PCP - General 09/07/19 10/04/19 Pearl Marin MD [facility] [place] [address] PCP - General INTERNAL MEDICINE 10/05/19 03/14/23 None, ProviderMD PCP - General UNKNOWN PHYSICIAN SPECIALTY 03/15/23 07/04/23 Valerie Kilgore MD [address] [place] [phone] PCP - General FAMILY PRACTICE 07/05/23 Jack Reynaga NP [address] [place] [phone] Nurse Practitioner Family 01/03/24 Linda George MD [address] [place] [phone] Consulting Physician CARDIOVASCULAR DISEASE 01/03/24 documented as of this encounter
--- OUTSIDE RECORDS SUMMARY | 2024-11-09 18:05 | XMS_ITS | Encounter Summary ---
Author Organization [facility] Address [facility] [place] [address] Care Team Providers Care Lens Polisher Hand Name Role Phone Eriberto Malone MD Primary Care Provider [phone] None, Provider Primary Care Provider Unavaila ble None, Provider Primary Care Provider Unavaila ble Pearl Marin MD Primary Care Provider [phone] None, Provider Primary Care Provider Unavaila ble Valerie Kilgore MD Primary Care Provider + [phone] Jack Reynaga NP Unavailable [phone] Linda George MD Unavailable Encounter Details Date Type Department Care Team (Late st Contact Info) Description 12/27/2018 Abstract SFL CONVERSION [address] [place] [address] , Generic Conversion, Social History Tobacco Use Types Packs/Day Years Used Date Smoking Tobacco: Smoker, Current Status Unknown Comments Unknown Sex and Gender Information Value Date Recorded Sex Assigned at Female 09/11/2024 10:33 AM PEDIATRIC CRITICAL CARE NURSE Legal Sex Female 9:47 PM CDT Gender [...] Rule Out 06/21/2020 06/21/2020 06/21/2020 6:49 PM PEDIATRIC CRITICAL CARE NURSE COVID-19 Rule Out 06/21/2020 06/21/2020 06/22/2020 5:01 PM PEDIATRIC CRITICAL CARE NURSE COVID-19 Rule Out 07/18/2021 07/18/2021 07/18/2021 9:43 PM PEDIATRIC CRITICAL CARE NURSE COVID-19 Confirmed Comment:07/28/[address] Dietrich, patient meets [facility] guidelines for discontinuing COVID isolation. (RG) 07/18/2021 07/18/2021 07/28/2021 1:[address] COVID-19 Rule Out 05/08/2024 05/08/2024 05/08/2024 9:36 PM CDT documented as of this encounter Care Teams Lens Polisher Hand Relationship Specialty Start Date End Date Eriberto Malone MD [address] [address] PCP - General INTERNAL MEDICINE 12/26/18 06/14/19 None, ProviderMD PCP - General 06/22/19 09/06/19 None, ProviderMD PCP - General 09/07/19 10/04/19 Pearl Marin MD [facility] [place] [address] PCP - General INTERNAL MEDICINE 10/05/19 03/14/23 None, ProviderMD PCP - General UNKNOWN PHYSICIAN SPECIALTY 03/15/23 07/04/23 Valerie Kilgore MD [address] [place] [phone] PCP - General FAMILY PRACTICE 07/05/23 Jack Reynaga NP [address] [place] [phone] Nurse Practitioner Family 01/03/24 Linda George MD [address] [place] [id number] Consulting Physician CARDIOVASCULAR DISEASE 01/03/24 documented as of this encounter
--- OUTSIDE RECORDS SUMMARY | 2024-11-09 18:05 | XMS_ITS ---
Author Organization Unknown Address [address] [place] [phone] Phone Care Team Providers Care Council On Aging Director Name Role Phone KWAME Larose Attending Unavailable [...] 187 CVX Pneumococcal conjugate PCV20 , polysaccharide [id number] conjugate, adjuvant, PF 05/08/2023 Completed 216 CVX COVID-19, mRNA, LNP-S, PF, prasad-sucrose, 30 mcg/0.3 mL 04/25/2023 Completed 309 CVX Social History Type Status Start Date End Date Code Code Syst em Smoking History Current every day smoker 526346564 SNOMED CT Sex Female Hospital Discharge Instructions [...] Code System No Known Allergies Moderate Active 571205573 SN OMED-CT No Known Allergies Moderate Active 956610455 SN OMED-CT Plan of Treatment No Data Found Encounters Encounter Diagnosis Start Date Code Code Sys tem Low back pain, unspecified 05/06/2024 S NOMED-CT Personal Care Team Section Performer Name Performer Role Active Date Inactive Da NIKKO Torres PCP - Primary care physician 2021-08-22 2024-01-09 CHANO ORDONEZ PCP - Primary care physician 2024-05-27
--- OUTSIDE RECORDS SUMMARY | 2024-11-09 18:06 | XMS_ITS ---
Author Organization Unknown Address [address] [place] [phone] Phone Care Team Providers Care Patient Financial Advocate Name Role Phone JENNIFFER COXIE Attending Unavailable [...] 187 CVX Pneumococcal conjugate PCV20 , polysaccharide [id number] conjugate, adjuvant, PF 05/08/2023 Completed 216 CVX [...] Kashif Li M.D. RB: TED Report ID: [id number] Reading Location: [id number] PELVIS - Completed: 05/27/20 24 11:55 LOINC: [...] Kashif Li M.D. RB: TED Report ID: [id number] Reading Location: [id number] Social History Type Status Start Date End Date Code Code Syst em Smoking History Current every day smoker [id number] SNOMED CT Sex Female Hospital Discharge Instructions [...] Code System No Known Allergies Moderate Active 409617617 SN OMED-CT No Known Allergies Moderate Active 629709731 SN OMED-CT Plan of Treatment No Data Found Encounters Encounter Diagnosis Start Date Code Code Sys tem Lumbago with sciatica, unspecified side 05/27/2024 SNOMED-CT Personal Care Team Section Performer Name Performer Role Active Date Inactive NIKKO Izaguirre PCP - Primary care physician 2021-08-22 2024-01-09 CHANO ORDONEZ PCP - Primary care physician 2024-05-27 Imaging Narrative Notes
--- OUTSIDE RECORDS SUMMARY | 2024-11-09 18:11 | XMS_ITS ---
Author Organization Unknown Address [address] [place] [phone] Phone Care Team Providers Care Instructional Leader Name Role Phone MATEUSZ US Attending Unavailable [...] 187 CVX Pneumococcal conjugate PCV20 , polysaccharide [id number] conjugate, adjuvant, PF 05/08/2023 Completed 216 CVX [...] Shoshana Irizarry M.D. TW: TW Report ID: [id number] Reading Location: [id number] Social History Type Status Start Date End Date Code Code Syst em Smoking History Current every day smoker 855801010 SNOMED CT Sex Female Hospital Discharge Instructions [...] Code System No Known Allergies Moderate Active 164860157 SN OMED-CT No Known Allergies Moderate Active 885274529 SN OMED-CT Plan of Treatment No Data Found Encounters Encounter Diagnosis Start Date Code Code Sys tem Contusion of right shoulder, initial encounter 024 SNOMED-CT Personal Care Team Section Performer Name Performer Role Active Date Inactive NIKKO Izaguirre PCP - Primary care physician 2021-08-22 2024-01-09 CHANO ORDONEZ PCP - Primary care physician 2024-05-27 Imaging Narrative Notes
--- OUTSIDE RECORDS SUMMARY | 2024-11-09 18:12 | XMS_ITS ---
Author Organization Unknown Address [address] [place] [address] [phone] Phone Care Team Providers Care Jointer Operator Name Role Phone SHEPARD EDGAR Attending Unavailable [...] 187 CVX Pneumococcal conjugate PCV20 , polysaccharide [id number] conjugate, adjuvant, PF 05/08/2023 Completed 216 CVX [...] Pedro Serrano M.D. NS: NS Report ID: [id number] Reading Location: [id number] RIBS RIGHT W/ 1V CHEST - Com [...] Kashif Li M.D. RB: TED Report ID: [id number] Reading Location: [id number] SHOULDER MIN 2V RIGHT - Comp leted: [...] Darell Pires M.D. MM: ANGEL Report ID: [id number] Reading Location: [id number] Social History Type Status Start Date End Date Code Code Syst em Smoking History Current every day smoker 790155740 SNOMED CT Sex Female Hospital Discharge Instructions [...] Code System No Known Allergies Moderate Active 485860901 SN OMED-CT No Known Allergies Moderate Active 751518799 SN OMED-CT Plan of Treatment No Data [...]
--- OUTSIDE RECORDS SUMMARY | 2024-11-09 18:12 | XMS_ITS | CONTINUITY OF CARE DOCUMENT ---
Author Name vinay mclean Address Unknown Organization [facility] Address [address] [facility] [address] [place] [address] Phone [phone] Care Team Providers Care Child Care Education Coordinator Name Role Phone vinay mclean Unavailable Unavailable
--- OUTSIDE RECORDS SUMMARY | 2024-11-09 18:12 | XMS_ITS ---
Author Organization Unknown Address [address] [place] [phone] Phone Care Team Providers Care Paper Machine Operator Name Role Phone KWAME Larose Attending Unavailable [...] 187 CVX Pneumococcal conjugate PCV20 , polysaccharide [id number] conjugate, adjuvant, PF 05/08/2023 Completed 216 CVX COVID-19, mRNA, LNP-S, PF, prasad-sucrose, 30 mcg/0.3 mL 04/25/2023 Completed 309 CVX Social History Type Status Start Date End Date Code Code Syst em Smoking History Current every day smoker 643832476 SNOMED CT Sex Female Hospital Discharge Instructions [...] Code System No Known Allergies Moderate Active 417713444 SN OMED-CT No Known Allergies Moderate Active 391552482 SN OMED-CT Plan of Treatment No Data Found Encounters Encounter Diagnosis Start Date Code Code Sys tem Low back pain, unspecified 05/06/2024 S NOMED-CT Personal Care Team Section Performer Name Performer Role Active Date Inactive Da NIKKO Torres PCP - Primary care physician 2021-08-22 2024-01-09 CHANO ORDONEZ PCP - Primary care physician 2024-05-27
--- OUTSIDE RECORDS SUMMARY | 2024-11-09 18:12 | XMS_ITS ---
Author Organization Unknown Address [address] [place] [phone] Phone Care Team Providers Care Pad Extractor Tender Name Role Phone JENNIFFER COXIE Attending Unavailable [...] 187 CVX Pneumococcal conjugate PCV20 , polysaccharide QBT250 conjugate, adjuvant, PF 05/08/2023 Completed 216 CVX [...] Kashif Li M.D. RB: TED Report ID: [id number] Reading Location: [id number] PELVIS - Completed: 05/27/20 24 11:55 LOINC: [...] Kashif Li M.D. RB: TED Report ID: [id number] Reading Location: [id number] Social History Type Status Start Date End Date Code Code Syst em Smoking History Current every day smoker 126501749 SNOMED CT Sex Female Hospital Discharge Instructions [...] Code System No Known Allergies Moderate Active 304400694 SN OMED-CT No Known Allergies Moderate Active 198046815 SN OMED-CT Plan of Treatment No Data Found Encounters Encounter Diagnosis Start Date Code Code Sys tem Lumbago with sciatica, unspecified side 05/27/2024 SNOMED-CT Personal Care Team Section Performer Name Performer Role Active Date Inactive NIKKO Izaguirre PCP - Primary care physician 2021-08-22 2024-01-09 CHANO ORDONEZ PCP - Primary care physician 2024-05-27 Imaging Narrative Notes
--- OUTSIDE RECORDS SUMMARY | 2024-11-09 18:12 | XMS_ITS ---
Author Organization Unknown Address [address] [place] [phone] Phone Care Team Providers Care Checking Department Supervisor Name Role Phone ROBNESSAGREY COXIE Attending [...] 187 CVX Pneumococcal conjugate PCV20 , polysaccharide [id number] conjugate, adjuvant, PF 05/08/2023 Completed 216 CVX [...] Warner Rhodes M.D. CH: MIRELA Report ID: [id number] Reading Location: [id number] Social History Type Status Start Date End Date Code Code Syst em Smoking History Current every day smoker 152504977 SNOMED CT Sex Female Hospital Discharge Instructions [...] Code System No Known Allergies Moderate Active 628983509 SN OMED-CT No Known Allergies Moderate Active 995044609 SN OMED-CT Plan of Treatment No Data Found Encounters Encounter Diagnosis Start Date Code Code Sys tem Functional dyspepsia 07/01/2024 SNOMED- CT Personal Care Team Section Performer Name Performer Role Active Date Inactive NIKKO Izaguirre PCP - Primary care physician 2021-08-22 2024-01-09 CHANO ORDONEZ PCP - Primary care physician 2024-05-27 Imaging Narrative Notes
--- NOTE | 2024-11-09 18:44 | ED.NAVMDI ---
HPI - Nausea/Vomiting/Diarrhea General Chief complaint: Nausea/Vomiting/Diarrhea Stated complaint: vomiting, diarrhea Time Seen by Provider: 11/09/24 17:06 Source: patient Mode of arrival: ambulatory Limitations: no limitations History of Present Illness HPI Narrative: Patient is a 59-year-old female with significant past medical history that presents today nausea diarrhea and vomiting. She states that she has has has nausea vomiting diarrhea for the last 3 days. She says that she is taking OTC medications with no relief. She also has a history of having apparently getting angry and having part of her stomach taking out. She says it all pain is now generalized and she can not stop vomiting and has not helped keep anything down it is very dehydrated. She is also having diarrhea about 4 6 times a day. MD elicited complaint: vomiting, diarrhea and abdominal pain Onset (ago): day(s) Description of vomiting: food contents, watery and bilious Description of diarrhea: blood, mucus and watery Associated nausea: Yes Associated abdominal pain: Yes Location of pain: diffuse Radiation: diffuse Pain consistency: constant Severity: moderate Pain scale (0-10): 5 Quality: cramping and stabbing Exacerbating factors: vomiting and exertion Relieving factors: none Associated symptoms: diaphoresis, fever/chills, loss of appetite, nausea/vomiting and fecal incontinence Related Data Home Medications ?Medication ?Instructions ?Recorded ?Confirmed ?Last Taken ?Type buspirone 10 mg tablet 10 mg PO TID 03/15/23 03/15/23 Unknown History gabapentin 600 mg tablet 1,200 mg PO TID 03/15/23 03/15/23 Unknown History hydroxyzine HCl 50 mg tablet 50 mg PO TID PRN Itching 03/15/23 03/15/23 Unknown History levetiracetam 1,000 mg tablet 1,000 mg PO BID 03/15/23 03/15/23 Unknown History omeprazole 40 mg capsule,delayed 40 mg PO DAILY 03/15/23 03/15/23 Unknown History release pregabalin 150 mg capsule 150 mg PO DAILY 03/15/23 03/15/23 Unknown History tizanidine 4 mg tablet 4 mg PO BID PRN Pain 03/15/23 03/15/23 Unknown History Allergies Allergy/AdvReac Type Severity Reaction Status Date / Time No Known Allergies Allergy Unknown Verified 11/09/24 17:16 Review of Systems Review of Systems: All systems reviewed & are unremarkable except as noted in HPI and below Constitutional: Constitutional: Reports as per HPI Eyes: Eyes: Reports no additional eye complaints ENT: Reports system reviewed and no additional complaints, except as documented Cardiovascular: Cardiovascular: Reports no additional cardiovascular complaints Respiratory: Respiratory: Reports no additional respiratory complaints Gastrointestinal: Gastrointestinal: Reports as per HPI, Reports abdominal pain, Reports diarrhea, Reports nausea and Reports vomiting Genitourinary: Genitourinary: Reports no additional female genitourinary complaints Musculoskeletal: Musculoskeletal: Reports no additional musculoskeletal complaints Integumentary/Breasts: Skin/Breast: Reports system reviewed and no additional complaints, except as docu Neurologic: Reports system reviewed and no additional complaints, except as documented Psychiatric: Psychiatric: Reports no additional psychiatric complaints Endocrine: Endocrine: Reports no additional endocrine complaints Hematologic/Lymphatic: Hematologic/Lymphatic: Reports no additional hematologic/lymphatic complaints Allergic/Immunologic: Allergic/Immunologic: Reports no additional allergic/immunologic complaints [facility] Past Medical History Medical History Patient denies medical problems Exam Const: General: healthy appearing Nutritional Appearance: well nourished Orientation/consciousness: patient oriented x3 HENMT: Head: normal to inspection Ears: external ears normal Face/Nose/Sinus: Normal external nose present Face and sinus: normal facial exam Eyes: Conjunctivae: conjunctivae normal Cornea: corneas normal Pupils: Equal, round and reactive pupils present EOM: EOMs intact bilaterally Neck: Neck: normal visual inspection Chest: Chest palpation & inspection: normal inspection of the chest Resp: Effort & Inspection: normal respiratory effort Auscultation: clear to auscultation bilaterally Cardio: Rate: regular rate Rhythm: regular rhythm GI: GI Palp: Yes Soft to palpation Auscultation: normal bowel sounds : General: Yes bladder normal to palpation Back/Spine/Pelvis: Back: no CVA tenderness Skin: General skin exam: normal color Rashes: no rashes Wounds: no wounds Neuro: General: patient oriented x3 Cranial nerves: Yes Nystagmus not present Speech: normal speech Extrem: General: normal to inspection Psych: Mental Status: mental status grossly normal Affect: normal affect Attitude: cooperative Course Vital Signs Vital signs: Vital Signs Temperature 97.9 F 11/09/24 17:08 Pulse Rate 119 H 11/09/24 17:08 Respiratory Rate 18 11/09/24 17:08 Blood Pressure 121/87 11/09/24 17:08 Pulse Oximetry 96 11/09/24 17:08 Oxygen Delivery Room Air 11/09/24 17:08 Temperature 97.9 F 11/09/24 17:08 Pulse Rate 119 H 11/09/24 17:08 Respiratory Rate 18 11/09/24 17:08 Blood Pressure 121/87 11/09/24 17:08 Pulse Oximetry 96 11/09/24 17:08 Oxygen Delivery Room Air 11/09/24 17:08 MDM - Nausea/Vomiting/Diarrhea MDM Narrative Medical decision making narrative: Patient is concerning because she has had what looks like an infection of the skin around the area of the site where she had the surgery done 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 This is concerning so will do CT of the abdomen and pelvis with contrast. Also do full blood panel. She is very dehydrated so will give her 2 L normal saline. Also gave her Zofran for nausea. has some Imodium for the diarrhea. Obese treatment based on results of the CT of the abdomen pelvis. Differential Diagnosis Differential diagnosis: Likely gastroenteritis, clostridium difficile infection, dehydration and other ( Colitis) Medical Records Attestation: I reviewed the patient's medical records. Lab Data Attestation: I reviewed the patient's lab results. 11/09/24 17:30 11/09/24 17:29 Labs: Lab Results 11/09/24 11/09/24 11/09/24 Range/Units 17:29 17:30 17:40 WBC 10.4 (4.8-10.8) K/mm3 RBC 5.71 H (4.20-5.40) M/mm3 Hgb 16.9 H (12.0-15.0) g/dL Hct 50.7 H (35.0-49.0) % MCV 88.8 (78.0-102.0) fL MCH 29.6 (27.0-31.0) pg MCHC 33.3 (32-36) g/dL RDW 12.7 (11.6-14.4) % Plt Count 236 (150-420) K/mm3 MPV 11.8 (9.2-11.8) fl Immature Gran % (Auto) 0.3 H (0.0-0.0) % Neut % (Auto) 71.6 H (50.0-70.0) % Lymph % (Auto) 19.1 (18.0-42.0) % Braxton % (Auto) 7.3 (2.0-11.0) % Eos % (Auto) 1.3 (1.0-6.0) % Baso % (Auto) 0.4 (0.0-1.0) % Lymph # (Auto) 1.99 (1.10-4.50) K/mm3 Braxton # (Auto) 0.76 (0.10-0.90) K/mm3 Eos # (Auto) 0.13 (0.02-0.50) K/mm3 Baso # (Auto) 0.04 (0.00-0.10) K/mm3 Abs Immat Gran (auto) 0.03 H (0.00-0.00) K/mm3 Absolute Neuts (auto) 7.45 H (1.70-7.20) K/mm3 Absolute Nucleated RBC 0.00 (0.00-0.00) K/mm3 Nucleated RBC % 0.0 (0-0.0) % Sodium 134 L (136-145) mmol/L Potassium 3.1 L (3.5-5.1) mmol/L Chloride 89 L (98-108) mmol/L Carbon Dioxide 31 (21-32) mmol/L Anion Gap 14 H (4-12) mmol/L BUN 40 H (7-18) mg/dL Creatinine 1.46 H (0.55-1.02) mg/dL Estim Creat Clear Calc 29 ml/min Estimated GFR 37 L (59 - ) Glucose 314 H (70-99) mg/dL Calculated Osmolality 299 H (285-295) mOsm/kg Lactic Acid 2.0 (0.4-2.0) mmol/L Calcium 9.8 (8.5-10.1) mg/dL Total Bilirubin 0.8 (0.00-1.00) mg/dL AST < 10 L (15-37) U/L ALT 15 (14-59) U/L Alkaline Phosphatase 155 H (46-116) U/L Total Protein 9.1 H (6.4-8.2) g/dL Albumin 4.2 (3.4-5.0) g/dL Lipase 21 (16-77) U/L Urine Color Dark orange (Yellow) Urine Appearance Clear (Clear) Urine pH 5.0 (5.0-8.0) Ur Specific [place] >= 1.030 H (1.010-1.020) Urine Protein 2+ H (Negative) Urine Glucose (UA) 1+ H (Negative) Urine Ketones Trace H (Negative) Ur Blood (Man) Negative (Negative) Urine Nitrate Positive H (Negative) Urine Bilirubin 2+ H (Negative) Urine Urobilinogen 1.0 (0.2-1.0) mg/dL Leukocyte Esterase Rfl Negative (Negative) TAURUS/UL Urine RBC None seen (0-2) /hpf Urine WBC None seen (0-3) /hpf Ur Squamous Epith Cells Few (Few) /hpf Urine Bacteria 2+ H (None) /hpf Hyaline Casts 5-9 H (None) /lpf Imaging Data Attestation: I personally reviewed and interpreted this imaging study as follows: Discharge Plan Discharge Clinical Impression: Colitis, Gastroenteritis Patient Disposition: Home Condition: Stable Instructions: Antibiotic Form, Gastroenteritis (ED), Colitis (ED) Patient Language: Turkmen Prescriptions: New ondansetron 4 mg tablet,disintegrating 4 mg PO Q6H PRN (Reason: nausea and vomiting) Qty: 20 0RF No Action gabapentin 600 mg tablet 1,200 mg PO TID tizanidine 4 mg tablet 4 mg PO BID PRN (Reason: Pain) hydroxyzine HCl 50 mg tablet 50 mg PO TID PRN (Reason: Itching) omeprazole 40 mg capsule,delayed release(DR/EC) 40 mg PO DAILY buspirone 10 mg tablet 10 mg PO TID pregabalin 150 mg capsule 150 mg PO DAILY levetiracetam 1,000 mg tablet 1,000 mg PO BID naproxen 500 mg tablet 500 mg PO BID PRN (Reason: pain) Qty: 20 0RF Follow-up/Referrals: Mayra,Leonor Márquez NP [Primary Care Provider] - Time of Disposition: 19:30
[2024-11-09] MEDS: POTASSIUM CHLORIDE 20 MEQ ER TABLET 40 MEQ PO (19:33)
[2024-11-09] MEDS: CIPROFLOXACIN 500 MG TAB PO (19:33)
[2024-11-09] MEDS: metroNIDAZOLE 250 MG TABLET 500 MG PO (19:33)
[2024-11-09 19:57] VITALS: BP 120/85; PULSE 95; RESP 17; O2SAT 96
--- NOTE | 2024-11-10 17:14 | PC.NURSE ---
Preliminary blood culture; no growth to date.
--- NOTE | 2024-11-11 12:30 | PC.NURSE ---
final urine culture results: mixed genital jorge isolated. no action needed per dr brown
== END 2024-11-09 19:59 | disposition home or self-care (01) ==
PROVIDERS: Emergency Provider Family Medicine; PCP Nurse Practitioner
DX: K52.9 Noninfective gastroenteritis and colitis, unspecified (principal)
CPT/HCPCS: 36415; 71260; 74177; 80053; 81001; 83605; 83690; 85025; 87040; 87086; 96361; 96374; 96375; 99284; A9270; J2270; J2405; J7030; Q9967

== ENCOUNTER 2024-12-12 21:50 | Observation (INO) | payer MEDICARE, MEDICAID, SELFPAY ==
--- NOTE | ~2024-12-12 | CT_ITS ---
CLINICAL INDICATION: Lower abdominal pain 11/09/2024 COMPARISON: . TECHNIQUE: Multiple contiguous axial images of the abdomen and pelvis were performed following the ad ministration of with 100 mL Omnipaque-350 intravenous contrast The dose-length product (DLP) was 270.13 mGy-cm. Automated exposure control and iterative reconstruction technique were employed. FINDINGS/OBSERVATIONS: Visualized lower thorax: The bilateral lung bases are clear. The heart is of normal size, without pericardial effusion. Small hiatal hernia is present. Liver: The liver demonstrates homogeneous enhancement and is enlarged measuring 21 cm in longitudinal dimens ion. Gallbladder and biliary system: The gallbladder is surgically absent. Pancreas: The pancreas enhances homogeneously without ductal dilatation. Spleen: The spleen enhances homogeneously and is not enlarged measuring 11 cm in longitudinal dimension. Kidneys: The bilateral kidneys enhance symmetrically without hydronephrosis or renal calculi. Adrenal glands: Unremarkable. Gastrointestinal tract: Colonic diverticulosis without surrounding inflammatory change. Fecal stasis within the colon. Appendix: The appendix is not definitively visualized. However, no pericecal inflammatory change is identified suggest the presence of acute appendicitis. Vasculature: Unremarkable. Lymph nodes: No pathologically enlarged or morphologically suspicious lymph nodes within the retroperitoneum or at the root of the mesentery. Pelvic structures: The bladder is distended, and otherwise unremarkable. The uterus is either surgically absent or markedly atrophic Body wall and musculoskeletal: Small fat-containing umbilical hernia. Compression of the superior endplate of L2, unchanged from prior. Remainder of the visualized portion of the lower thoracic and lumbar spines are unremarkable. IMPRESSION: Hepatomegaly Remainder of the examination is otherwise unremarkable Reviewed, dictated and finalized at location A.
--- OUTSIDE RECORDS SUMMARY | 2024-12-12 21:53 | XMS_ITS ---
Author Organization Unknown Address [address] [place] [address] [phone] Phone Care Team Providers Care Raw Material Handler Name Role Phone KWAME Larose Attending Unavailable [...] 187 CVX Pneumococcal conjugate PCV20 , polysaccharide [id number] conjugate, adjuvant, PF 05/08/2023 Completed 216 CVX COVID-19, mRNA, LNP-S, PF, prasad-sucrose, 30 mcg/0.3 mL 04/25/2023 Completed 309 CVX Social History Type Status Start Date End Date Code Code Syst em Smoking History Current every day smoker 580853041 SNOMED CT Sex Female Hospital Discharge Instructions [...] Code System No Known Allergies Moderate Active 141348441 SN OMED-CT No Known Allergies Moderate Active 971238116 SN OMED-CT Plan of Treatment No Data Found Encounters Encounter Diagnosis Start Date Code Code Sys tem Low back pain, unspecified 05/06/2024 S NOMED-CT Personal Care Team Section Performer Name Performer Role Active Date Inactive Da NIKKO Torres PCP - Primary care physician 2021-08-22 2024-01-09 CHANO ORDONEZ PCP - Primary care physician 2024-05-27
--- OUTSIDE RECORDS SUMMARY | 2024-12-12 21:53 | XMS_ITS | CONTINUITY OF CARE DOCUMENT ---
Author Name vinay mclean Address Unknown Organization [facility] Address [address] [facility] [address] [place] [address] Phone [phone] Care Team Providers Care Records Administrator Name Role Phone vinay mclean Unavailable Unavailable
--- OUTSIDE RECORDS SUMMARY | 2024-12-12 21:54 | XMS_ITS ---
Author Organization Unknown Address [address] [place] [address] [phone] Phone Care Team Providers Care Field Representative/Health Education Name Role Phone ROBNESSAGREY COXIE Attending Unavailable [...] 187 CVX Pneumococcal conjugate PCV20 , polysaccharide [id number] conjugate, adjuvant, PF 05/08/2023 Completed 216 CVX [...] Warner Rhodes M.D. CH: MIRELA Report ID: [id number] Reading Location: [id number] Social History Type Status Start Date End Date Code Code Syst em Smoking History Current every day smoker 426469751 SNOMED CT Sex Female Hospital Discharge Instructions [...] Code System No Known Allergies Moderate Active 073697854 SN OMED-CT No Known Allergies Moderate Active 002893104 SN OMED-CT Plan of Treatment No Data Found Encounters Encounter Diagnosis Start Date Code Code Sys tem Functional dyspepsia 07/01/2024 SNOMED- CT Personal Care Team Section Performer Name Performer Role Active Date Inactive NIKKO Izaguirre PCP - Primary care physician 2021-08-22 2024-01-09 CHANO ORDONEZ PCP - Primary care physician 2024-05-27 Imaging Narrative Notes
--- OUTSIDE RECORDS SUMMARY | 2024-12-12 21:54 | XMS_ITS ---
Author Organization Unknown Address [address] [place] [address] [phone] Phone Care Team Providers Care Commodity Manager Name Role Phone SHEPARDMATEUSZ MORRISON Attending Unavailable MERY Gasca Primary Unavailable Immunization [...] 187 CVX Pneumococcal conjugate PCV20 , polysaccharide [id number] conjugate, adjuvant, PF 05/08/2023 Completed 216 CVX [...] Pedro Serrano M.D. NS: NS Report ID: [id number] Reading Location: [id number] RIBS RIGHT W/ 1V CHEST - Com [...] Kashif Li M.D. RB: TED Report ID: [id number] Reading Location: [id number] SHOULDER MIN 2V RIGHT - Comp leted: [...] Darell Pires M.D. MM: ANGEL Report ID: [id number] Reading Location: [id number] Social History Type Status Start Date End Date Code Code Syst em Smoking History Current every day smoker 613883843 SNOMED CT Sex Female Hospital Discharge Instructions [...] Code System No Known Allergies Moderate Active 696884527 SN OMED-CT No Known Allergies Moderate Active 501373812 SN OMED-CT Plan of Treatment No Data [...]
--- OUTSIDE RECORDS SUMMARY | 2024-12-12 21:54 | XMS_ITS ---
Author Organization Unknown Address [address] [place] [address] [phone] Phone Care Team Providers Care Etl Lead Name Role Phone MATEUSZ US Attending Unavailable [...] 187 CVX Pneumococcal conjugate PCV20 , polysaccharide [id number] conjugate, adjuvant, PF 05/08/2023 Completed 216 CVX [...] Shoshana Irizarry M.D. TW: TW Report ID: [id number] Reading Location: [id number] Social History Type Status Start Date End Date Code Code Syst em Smoking History Current every day smoker 537215389 SNOMED CT Sex Female Hospital Discharge Instructions [...] Code System No Known Allergies Moderate Active 232615361 SN OMED-CT No Known Allergies Moderate Active 008089045 SN OMED-CT Plan of Treatment No Data Found Encounters Encounter Diagnosis Start Date Code Code Sys tem Contusion of right shoulder, initial encounter 024 SNOMED-CT Personal Care Team Section Performer Name Performer Role Active Date Inactive NIKKO Izaguirre PCP - Primary care physician 2021-08-22 2024-01-09 CHANO ORDONEZ PCP - Primary care physician 2024-05-27 Imaging Narrative Notes
--- OUTSIDE RECORDS SUMMARY | 2024-12-12 21:54 | XMS_ITS ---
Author Organization Unknown Address [address] [place] [address] [phone] Phone Care Team Providers Care Medication Assistant Name Role Phone JENNIFFER COXIE Attending Unavailable [...] 187 CVX Pneumococcal conjugate PCV20 , polysaccharide [id number] conjugate, adjuvant, PF 05/08/2023 Completed 216 CVX [...] Kashif Li M.D. RB: TED Report ID: [id number] Reading Location: [id number] PELVIS - Completed: 05/27/20 24 11:55 LOINC: [...] Kashif Li M.D. RB: TED Report ID: [id number] Reading Location: [id number] Social History Type Status Start Date End Date Code Code Syst em Smoking History Current every day smoker 570120809 SNOMED CT Sex Female Hospital Discharge Instructions [...] Code System No Known Allergies Moderate Active 133015477 SN OMED-CT No Known Allergies Moderate Active 760024683 SN OMED-CT Plan of Treatment No Data Found Encounters Encounter Diagnosis Start Date Code Code Sys tem Lumbago with sciatica, unspecified side 05/27/2024 SNOMED-CT Personal Care Team Section Performer Name Performer Role Active Date Inactive NIKKO Izaguirre PCP - Primary care physician 2021-08-22 2024-01-09 CHANO ORDONEZ PCP - Primary care physician 2024-05-27 Imaging Narrative Notes
[2024-12-12 21:58] VITALS: BP 134/71; PULSE 87; RESP 18; TEMP 35.8; O2SAT 97
--- NOTE | 2024-12-12 22:18 | ECG_ITS ---
Test Date: 2024-12-12 22:47:42 Measurements Intervals [place] Rate: 79 P: 43 PA: 132 QRS: -25 QRSD: 100 T: 56 QT: 382 QTc: 439 Interpretive Statements SINUS RHYTHM BORDERLINE LEFT AXIS DEVIATION [QRS AXIS < -20] No previous ECG available for comparison Electronically Signed On 12-13-2024 10:09:44 CDT by Jasson Zhou M.D.
--- OUTSIDE RECORDS SUMMARY | 2024-12-12 22:23 | XMS_ITS ---
Author Organization Unknown Address [address] [place] [address] [phone] Phone Care Team Providers Care Finisher Brush Name Role Phone ROBNESSAGREY COXIE Attending Unavailable [...] 187 CVX Pneumococcal conjugate PCV20 , polysaccharide [id number] conjugate, adjuvant, PF 05/08/2023 Completed 216 CVX [...] Warner Rhodes M.D. CH: MIRELA Report ID: [id number] Reading Location: [id number] Social History Type Status Start Date End Date Code Code Syst em Smoking History Current every day smoker 462620499 SNOMED CT Sex Female Hospital Discharge Instructions [...] Code System No Known Allergies Moderate Active 293008929 SN OMED-CT No Known Allergies Moderate Active 430912173 SN OMED-CT Plan of Treatment No Data Found Encounters Encounter Diagnosis Start Date Code Code Sys tem Functional dyspepsia 07/01/2024 SNOMED- CT Personal Care Team Section Performer Name Performer Role Active Date Inactive NIKKO Izaguirre PCP - Primary care physician 2021-08-22 2024-01-09 CHANO ORDONEZ PCP - Primary care physician 2024-05-27 Imaging Narrative Notes
--- OUTSIDE RECORDS SUMMARY | 2024-12-12 22:23 | XMS_ITS ---
Author Organization Unknown Address [address] [place] [address] [phone] Phone Care Team Providers Care Account Retention Representative Name Role Phone SHEPARDMATEUSZ MORRISON Attending Unavailable [...] 187 CVX Pneumococcal conjugate PCV20 , polysaccharide [id number] conjugate, adjuvant, PF 05/08/2023 Completed 216 CVX [...] Pedro Serrano M.D. NS: NS Report ID: [id number] Reading Location: [id number] RIBS RIGHT W/ 1V CHEST - Com [...] Kashif Li M.D. RB: TED Report ID: [id number] Reading Location: [id number] SHOULDER MIN 2V RIGHT - Comp leted: [...] Darell Pires M.D. MM: ANGEL Report ID: [id number] Reading Location: [id number] Social History Type Status Start Date End Date Code Code Syst em Smoking History Current every day smoker 258810751 SNOMED CT Sex Female Hospital Discharge Instructions [...] Code System No Known Allergies Moderate Active 837277464 SN OMED-CT No Known Allergies Moderate Active 471034523 SN OMED-CT Plan of Treatment No Data [...]
--- OUTSIDE RECORDS SUMMARY | 2024-12-12 22:23 | XMS_ITS ---
Author Organization Unknown Address [address] [place] [address] [phone] Phone Care Team Providers Care Research Consultant Name Role Phone KWAME Larose Attending Unavailable [...] 187 CVX Pneumococcal conjugate PCV20 , polysaccharide [id number] conjugate, adjuvant, PF 05/08/2023 Completed 216 CVX COVID-19, mRNA, LNP-S, PF, prasad-sucrose, 30 mcg/0.3 mL 04/25/2023 Completed 309 CVX Social History Type Status Start Date End Date Code Code Syst em Smoking History Current every day smoker 666468728 SNOMED CT Sex Female Hospital Discharge Instructions [...] Code System No Known Allergies Moderate Active 159115633 SN OMED-CT No Known Allergies Moderate Active 384910546 SN OMED-CT Plan of Treatment No Data Found Encounters Encounter Diagnosis Start Date Code Code Sys tem Low back pain, unspecified 05/06/2024 S NOMED-CT Personal Care Team Section Performer Name Performer Role Active Date Inactive Da NIKKO Torres PCP - Primary care physician 2021-08-22 2024-01-09 CHANO RODONEZ PCP - Primary care physician 2024-05-27
--- OUTSIDE RECORDS SUMMARY | 2024-12-12 22:23 | XMS_ITS | CONTINUITY OF CARE DOCUMENT ---
Author Name vinay mclean Address Unknown Organization [facility] Address [address] [facility] [address] [place] [address] Phone [phone] Care Team Providers Care Recruitment Officer Name Role Phone vinay mclean Unavailable Unavailable
--- OUTSIDE RECORDS SUMMARY | 2024-12-12 22:24 | XMS_ITS ---
Author Organization Unknown Address [address] [place] [address] [phone] Phone Care Team Providers Care Financial Services Professional Name Role Phone JENNIFFER COXIE Attending Unavailable [...] 187 CVX Pneumococcal conjugate PCV20 , polysaccharide [id number] conjugate, adjuvant, PF 05/08/2023 Completed 216 CVX [...] Kashif Li M.D. RB: TED Report ID: [id number] Reading Location: [id number] PELVIS - Completed: 05/27/20 24 11:55 LOINC: [...] Kashif Li M.D. RB: TED Report ID: [id number] Reading Location: [id number] Social History Type Status Start Date End Date Code Code Syst em Smoking History Current every day smoker 079736263 SNOMED CT Sex Female Hospital Discharge Instructions [...] Code System No Known Allergies Moderate Active 804614143 SN OMED-CT No Known Allergies Moderate Active 232318234 SN OMED-CT Plan of Treatment No Data Found Encounters Encounter Diagnosis Start Date Code Code Sys tem Lumbago with sciatica, unspecified side 05/27/2024 SNOMED-CT Personal Care Team Section Performer Name Performer Role Active Date Inactive NIKKO Izaguirre PCP - Primary care physician 2021-08-22 2024-01-09 CHANO ORDONEZ PCP - Primary care physician 2024-05-27 Imaging Narrative Notes
--- OUTSIDE RECORDS SUMMARY | 2024-12-12 22:24 | XMS_ITS ---
Author Organization Unknown Address [address] [place] [address] [phone] Phone Care Team Providers Care Labor Relations Or Personnel Negotiator Name Role Phone MATEUSZ US Attending Unavailable [...] 187 CVX Pneumococcal conjugate PCV20 , polysaccharide [id number] conjugate, adjuvant, PF 05/08/2023 Completed 216 CVX [...] Shoshana Irizarry M.D. TW: TW Report ID: [id number] Reading Location: [id number] Social History Type Status Start Date End Date Code Code Syst em Smoking History Current every day smoker 210565694 SNOMED CT Sex Female Hospital Discharge Instructions [...] Code System No Known Allergies Moderate Active 725674531 SN OMED-CT No Known Allergies Moderate Active 087777414 SN OMED-CT Plan of Treatment No Data Found Encounters Encounter Diagnosis Start Date Code Code Sys tem Contusion of right shoulder, initial encounter 024 SNOMED-CT Personal Care Team Section Performer Name Performer Role Active Date Inactive NIKKO Izaguirre PCP - Primary care physician 2021-08-22 2024-01-09 CHANO ORDONEZ PCP - Primary care physician 2024-05-27 Imaging Narrative Notes
[2024-12-12 22:50] LABS: Basophils Absolute Auto 0.04 K/mm3 (0.00-0.10); Basophils Percent Auto 0.5 % (0.0-1.0); Eosinophils Percent Auto 2.4 % (1.0-6.0); Hematocrit 37.8 % (35.0-49.0); Hemoglobin 12.6 g/dL (12.0-15.0); Immature Granulocyte Absolute 0.03 K/mm3 (0.00-0.00); Immature Granulocyte Percent A 0.4 % (0.0-0.0); Lymphocytes Absolute Auto 2.22 K/mm3 (1.10-4.50); Lymphocytes Percent Auto 27.2 % (18.0-42.0); Mean Corpuscular HGB Conc 33.3 g/dL (32-36); Mean Corpuscular Hemoglobin 30.1 pg (27.0-31.0); Mean Corpuscular Volume 90.4 fL (78.0-102.0); Mean Platelet Volume 10.5 fl (9.2-11.8); Monocytes Absolute Auto 0.53 K/mm3 (0.10-0.90); Monocytes Percent Auto 6.5 % (2.0-11.0); Neutrophils Absolute Auto 5.15 K/mm3 (1.70-7.20); Platelet Count Result 300 K/mm3 (150-420); Red Blood Count 4.18 M/mm3 (4.20-5.40); White Blood Count 8.2 K/mm3 (4.8-10.8)
--- NOTE | 2024-12-12 22:52 | ED.NAVMDI ---
HPI - Nausea/Vomiting/Diarrhea General Chief complaint: Nausea/Vomiting/Diarrhea Stated complaint: Vomiting/Diarrhea/Stomach/Back pain Time Seen by Provider: 12/12/24 22:12 Source: patient Mode of arrival: ambulatory Limitations: no limitations History of Present Illness HPI Narrative: This is a 59-year-old female with history of diabetes that presents with nausea vomiting and abdominal pain that started around 2 in the afternoon with no fever chills no shortness of breath no chest pain no dysuria or hematuria no flank pain. patient states she is non alcoholic drinker and had a cholecystectomy approximately 10 years ago MD elicited complaint: nausea, vomiting and abdominal pain Onset (ago): hour(s) Description of vomiting: watery Location of pain: diffuse Radiation: diffuse Severity: moderate Quality: cramping and aching Related Data Home Medications ?Medication ?Instructions ?Recorded ?Confirmed ?Last Taken ?Type buspirone 10 mg tablet 10 mg PO TID 03/15/23 03/15/23 Unknown History gabapentin 600 mg tablet 1,200 mg PO TID 03/15/23 03/15/23 Unknown History hydroxyzine HCl 50 mg tablet 50 mg PO TID PRN Itching 03/15/23 03/15/23 Unknown History levetiracetam 1,000 mg tablet 1,000 mg PO BID 03/15/23 03/15/23 Unknown History omeprazole 40 mg capsule,delayed 40 mg PO DAILY 03/15/23 03/15/23 Unknown History release pregabalin 150 mg capsule 150 mg PO DAILY 03/15/23 03/15/23 Unknown History tizanidine 4 mg tablet 4 mg PO BID PRN Pain 03/15/23 03/15/23 Unknown History Allergies Allergy/AdvReac Type Severity Reaction Status Date / Time No Known Allergies Allergy Unknown Verified 12/13/24 01:18 Review of Systems Review of Systems: All systems reviewed & are unremarkable except as noted in HPI and below PMFSH Past Medical History Medical History Diabetes mellitus Patient denies medical problems Exam Const: General: cooperative, comfortable and no acute distress HENMT: Head: normal to inspection Face and sinus: normal facial exam Eyes: General: appearance normal, both eyes and all related structures Visual Manley: normal visual manley by confrontation Neck: Neck: normal visual inspection, full ROM, no lymphadenopathy and no meningeal signs Chest: Chest palpation & inspection: normal inspection of the chest and normal palpation of entire chest wall Resp: Effort & Inspection: normal respiratory effort Auscultation: clear to auscultation bilaterally Cardio: Jugular venous distension: no JVD Palpation: normal PMI Rate: regular rate Rhythm: regular rhythm Heart sounds: S1 normal heart sound present and S2 normal heart sound present GI: Inspection: normal to inspection GI Palp: Yes abdominal tenderness : General: Yes bimanual renal exam normal bilaterally Urinary Catheter: Urinary Catheter: patent and draining Skin: General skin exam: normal color and no rashes or lesions noted Neuro: General: oriented to person, oriented to place, oriented to time, patient oriented x3 and gait normal Course Course Emergency Course: patient with elevated lipase of 1807 with abdominal pain consistent with pancreatitis. CT scan of the abdomen showed no acute findings. Patient had a potassium of 2.8 and received K rider along with p.o. potassium. Lactic was normal UA showed trace leukocytes. Patient did receive Toradol initially for pain control which did not relieve her pain and subsequently dilaudid and after review did help a bit more. Patient received IV fluids and IV Zofran. Patient will be admitted under observation for acute pancreatitis. Vital Signs Vital signs: Vital Signs Temperature 35.8 C L 12/12/24 21:58 Pulse Rate 87 12/12/24 21:58 Respiratory Rate 18 12/12/24 21:58 Blood Pressure 134/71 12/12/24 21:58 Pulse Oximetry 97 12/12/24 21:58 Oxygen Delivery Room Air 12/12/24 21:58 Temperature 36.4 C L 12/13/24 01:31 Pulse Rate 74 12/13/24 01:31 Respiratory Rate 15 12/13/24 01:31 Blood Pressure 130/67 12/13/24 01:31 Pulse Oximetry 96 12/13/24 01:31 Oxygen Delivery Room Air 12/13/24 01:31 MDM - Nausea/Vomiting/Diarrhea Lab Data 12/12/24 22:40 12/12/24 22:40 Labs: Lab Results 12/12/24 Range/Units 22:40 WBC 8.2 (4.8-10.8) K/mm3 RBC 4.18 L (4.20-5.40) M/mm3 Hgb 12.6 (12.0-15.0) g/dL Hct 37.8 (35.0-49.0) % MCV 90.4 (78.0-102.0) fL MCH 30.1 (27.0-31.0) pg MCHC 33.3 (32-36) g/dL RDW 13.0 (11.6-14.4) % Plt Count 300 (150-420) K/mm3 MPV 10.5 (9.2-11.8) fl Immature Gran % (Auto) 0.4 H (0.0-0.0) % Neut % (Auto) 63.0 (50.0-70.0) % Lymph % (Auto) 27.2 (18.0-42.0) % [place] % (Auto) 6.5 (2.0-11.0) % Eos % (Auto) 2.4 (1.0-6.0) % Baso % (Auto) 0.5 (0.0-1.0) % Lymph # (Auto) 2.22 (1.10-4.50) K/mm3 [place] # (Auto) 0.53 (0.10-0.90) K/mm3 Eos # (Auto) 0.20 (0.02-0.50) K/mm3 Baso # (Auto) 0.04 (0.00-0.10) K/mm3 Abs Immat Gran (auto) 0.03 H (0.00-0.00) K/mm3 Absolute Neuts (auto) 5.15 (1.70-7.20) K/mm3 Absolute Nucleated RBC 0.00 (0.00-0.00) K/mm3 Nucleated RBC % 0.0 (0-0.0) % PT 10.9 (9.50-12.1) Seconds INR 1.0 APTT 30.2 (23.9-30.70) Sec Sodium 136 L (137-145) mmol/L Potassium 2.8 L* (3.4-5.0) mmol/L Chloride 106 (98-107) mmol/L Carbon Dioxide 25 (22-30) mmol/L Anion Gap 5 (4-12) mmol/L BUN 16 (7-17) mg/dL Creatinine 0.91 (0.7-1.0) mg/dL Estim Creat Clear Calc 45 ml/min Estimated GFR > 60 (59 - ) Glucose 214 H (65-110) mg/dL Calculated Osmolality 289 (285-295) mOsm/kg Lactic Acid 1.0 (0.4-2.0) mmol/L Calcium 8.4 (8.4-10.2) mg/dL Total Bilirubin 0.8 (0.2-1.3) mg/dL AST 19 (14-36) U/L ALT 15 (6-35) U/L Alkaline Phosphatase 108 (38-126) U/L Total Protein 6.6 (6.3-8.2) g/dL Albumin 3.7 (3.5-5.1) g/dL Lipase 1807 H (23-300) U/L Urine Color Light yellow (Yellow) Urine Appearance Clear (Clear) Urine pH 6.0 (5.0-8.0) Ur Specific Hunter 1.010 (1.010-1.020) Urine Protein Negative (Negative) Urine Glucose (UA) Negative (Negative) Urine Ketones Negative (Negative) Ur Blood (Man) Negative (Negative) Urine Nitrate Negative (Negative) Urine Bilirubin Negative (Negative) Urine Urobilinogen 0.2 (0.2-1.0) mg/dL Leukocyte Esterase Rfl Trace H (Negative) TAURUS/UL Urine WBC None seen (0-3) /hpf Ur Squamous Epith Cells Few (Few) /hpf Influenza A (RT-PCR) Negative (Negative) Influenza B (RT-PCR) Negative (Negative) RSV (RT-PCR) Negative (Negative) SARS-CoV-2 RNA (RT-PCR) Negative (Negative) Critical Care Time Critical Care Time Critical Care Time: No Discharge Plan Discharge Clinical Impression: Acute pancreatitis Qualifiers: Pancreatitis type: idiopathic Acute pancreatitis complication: unspecified Qualified Code(s): K85.00 - Idiopathic acute pancreatitis without necrosis or infection Patient Disposition: Acute Care Hospital Condition: Stable Patient Language: [place]ian Prescriptions: No Action gabapentin 600 mg tablet 1,200 mg PO TID tizanidine 4 mg tablet 4 mg PO BID PRN (Reason: Pain) hydroxyzine HCl 50 mg tablet 50 mg PO TID PRN (Reason: Itching) omeprazole 40 mg capsule,delayed release(DR/EC) 40 mg PO DAILY buspirone 10 mg tablet 10 mg PO TID pregabalin 150 mg capsule 150 mg PO DAILY levetiracetam 1,000 mg tablet 1,000 mg PO BID naproxen 500 mg tablet 500 mg PO BID PRN (Reason: pain) Qty: 20 0RF ondansetron 4 mg tablet,disintegrating 4 mg PO Q6H PRN (Reason: nausea and vomiting) Qty: 20 0RF metronidazole [Flagyl] 375 mg capsule 375 mg PO TID 7 Days Qty: 21 0RF ciprofloxacin HCl 500 mg tablet 500 mg PO Q12H Qty: 14 0RF Follow-up/Referrals: Danyel,Leonor Márquez, COMMUNICATION CENTER OPERATOR [Primary Care Provider] - Time of Disposition: 02:48
--- NOTE | 2024-12-12 23:03 | PC.NURSE ---
patient asleep on stretcher at this time.
[2024-12-12 23:04] LABS: Alanine Aminotransferase 15 U/L (6-35); Albumin Level 3.7 g/dL (3.5-5.1); Alkaline Phosphatase 108 U/L (38-126); Anion Gap 5 mmol/L (4-12); Aspartate Amino Transferase 19 U/L (14-36); Bilirubin,Total 0.8 mg/dL (0.2-1.3); Blood Urea Nitrogen 16 mg/dL (7-17); Calcium 8.4 mg/dL (8.4-10.2); Carbon Dioxide 25 mmol/L (22-30); Chloride 106 mmol/L (98-107); Estimated CRCL calculation 45 ml/min; Estimated Glomerular Filt Rate > 60; Glucose 214 mg/dL (65-110); Lipase 1807 U/L (23-300); Osmolality Calculated 289 mOsm/kg (285-295); Sodium 136 mmol/L (137-145); Total Protein 6.6 g/dL (6.3-8.2)
[2024-12-12 23:05] LABS: Partial Thromboplastin Time 30.2 Sec (23.9-30.70); Prothrombin Time 10.9 Seconds (9.50-12.1)
[2024-12-12 23:10] LABS: Potassium 2.8 mmol/L (3.4-5.0)
[2024-12-12 23:35] LABS: Influenza A QL RT-PCR Negative (Negative); Influenza B QL RT-PCR Negative (Negative); RSV RNA, RT-PCR Negative (Negative); SARS-CoV-2 RNA PCR Negative (Negative)
[2024-12-12 23:50] VITALS: PULSE 80; RESP 19; O2SAT 94
[2024-12-13] VITALS (32 sets, daily range): BP systolic 100–140; BP diastolic 51–76; PULSE 64–84; RESP 15–23; TEMP 36.4–36.7; O2SAT 93–97; BMI 23.5
--- NOTE | 2024-12-13 00:05 | PC.NURSE ---
patient to CT scan per tick eradicator.
[2024-12-13 00:30] LABS: Add Urine Microscopic? YES; Appearance Urine Clear (Clear); Bilirubin Urine Negative (Negative); Blood Urine Negative (Negative); Color Urine Light Yellow (Yellow); Glucose Urine UA Negative (Negative); Ketones Urine Negative (Negative); Leukocyte Esterase Ur Trace LEU/UL (Negative); Nitrate Urine Negative (Negative); Protein Urine Negative (Negative); Urobilinogen Urine 0.2 mg/dL (0.2-1.0)
--- NOTE | 2024-12-13 00:36 | PC.NURSE ---
patient returned from CT scan, awaiting results. new IV was necessary per [facility] and keon Hamlin.
[2024-12-13 00:37] LABS: Squamous Epithelial Cell Urine Few /hpf (Few); WBC Urine None seen /hpf (0-3)
[2024-12-13] MEDS: SODIUM CHLORIDE 0.9% IV 1,000 ML 999 ML IV CONT (00:44)
[2024-12-13] MEDS: KETOROLAC 30 MG/ML VIAL (*BKC) IV PUSH (00:45)
[2024-12-13] MEDS: ONDANSETRON INJ 4 MG/2 ML VIAL IV PUSH ×2 (00:47→03:04)
[2024-12-13] MEDS: HYDROmorphone HCL INJ (*CRX) 2 MG/ML VIAL 0.5 MG IV PUSH ×2 (00:49→03:04)
[2024-12-13] MEDS: POTASSIUM BICARBONATE 25 MEQ TABEF 50 MEQ PO (00:51)
[2024-12-13] MEDS: KCL 20 MEQ/SW 100 ML 100 ML 50 MEQ IVPB (00:53)
--- NOTE | 2024-12-13 01:45 | PC.NURSE ---
patient asleep on stretcher, significant other and grandson at bedside. VSS. patient awakened and states she is feeling better post medical management specialist but still is having some pain. call light within reach. ivf infusing.
--- NOTE | 2024-12-13 02:50 | PC.NURSE ---
Dr. Ovalle and RN at bedside for patient update including plan for inpatient admission to [facility] 2nd floor. patient agreeable.
[2024-12-13] MEDS: SODIUM CHLORIDE 0.9% IV 1,000 ML 100 ML IV CONT (03:04)
[2024-12-13] MEDS: NICOTINE (*PBKC) 21 MG PATCH 1 PATCH TRANSDERM ×2 (03:15→08:31)
[2024-12-13] MEDS: ATROPINE SULFATE 0.4 MG/ML VIAL IV PUSH (05:40)
[2024-12-13] MEDS: KETOROLAC 15 MG/ML VIAL (*BKC) IV PUSH (05:41)
[2024-12-13 06:01] LABS: Alanine Aminotransferase 11 U/L (6-35); Albumin Level 3.1 g/dL (3.5-5.1); Alkaline Phosphatase 88 U/L (38-126); Anion Gap 2 mmol/L (4-12); Aspartate Amino Transferase 16 U/L (14-36); Bilirubin,Total 0.4 mg/dL (0.2-1.3); Blood Urea Nitrogen 16 mg/dL (7-17); Calcium 7.8 mg/dL (8.4-10.2); Carbon Dioxide 23 mmol/L (22-30); Chloride 111 mmol/L (98-107); Estimated CRCL calculation 60 ml/min; Estimated Glomerular Filt Rate > 60; Glucose 204 mg/dL (65-110); Lipase 995 U/L (23-300); Magnesium 1.6 mg/dL (1.6-2.3); Osmolality Calculated 289 mOsm/kg (285-295); Potassium 4.3 mmol/L (3.4-5.0); Sodium 136 mmol/L (137-145); Total Protein 5.6 g/dL (6.3-8.2)
[2024-12-13 07:45] LABS: Glucose Point of Care 178 mg/dl (65-105)
[2024-12-13 09:01] LABS: Cholesterol 169 mg/dL (0-200); HDL Direct 25 mg/dL; LDL Cholesterol Calculated 102 mg/dL (<130); Triglycerides 212 mg/dL (<150)
[2024-12-13 09:02] LABS: Troponin I < 0.012 ng/mL (0.000-0.034)
--- NOTE | 2024-12-13 09:27 | PC.NURSE ---
Nurse received in report that patient has had episodes of bradycardia overnight. Nurse witnessed surveillance monitor read pulse in 30s and 40s for a brief time this am. Apical pulse when mortgage underwriter assessed was 70 and matched current telemetry reading. PUBLIC RELATIONS ASSOCIATE aware.
[2024-12-13] MEDS: HYDROcodone/acetaminophen (*CRX) 5-325 MG TABLET 1 TAB PO (10:37)
--- NOTE | 2024-12-13 10:44 | PC.NURSE ---
Telemetry and IV site discontinued per DIRECTOR OF ONCOLOGY order in anticipation of discharge.
--- NOTE | 2024-12-13 11:05 | P.SS_ITS ---
Same Day Admit/Disch: HPI History of Present Illness Chief complaint: Vomiting/Diarrhea/Stomach/Back pain Narrative: Catrina Wilson is a 59 year old female who presented to the emergency department with complaints of nausea vomiting and inability to tolerate any oral intake. patient reports past medical history diabetes, diabetic neuropathy and a previous abdominal surgery. Patient reports she attempted to take [id number] medications to relieve symptoms with no relief. in the emergency department patient was found to have an elevated lipase greater than 1800 CT abdomen with no significant findings otherwise all other labs and vitals were stable. Patient was admitted for further evaluation and treatment of acute pancreatitis. Overnight patient was having episodes of nonsustained bradycardia but was asymptomatic denied any dizziness, visual changes, shortness a breath, chest pain or syncopal episodes. ED physician did give [address] patient on continuous cardiac telemetry. Patient denied CP, SOB, dizziness, or current vomiting but did endorse ABD tenderness. [facility] Past Medical History Medical History Chronic pain Diabetes mellitus Social History Social History Smoking packs per day: 1 Smoking cigarettes per day: 20.0 Years smoked: 30 Smoking pack-years: 30.00 Smoking status: Current every day smoker Tobacco type: cigarettes Alcohol intake: never Substance use: never Substance use type: does not use Do You Feel Safe in your Home?: Yes Lack of Transportation: YES Lack of Food: Never True Current Housing: I Have Housing Concerned About Future Housing: No Difficulty Paying Gas/Electric Bills: YES Difficulty Paying for Meds: No Currently Unemployed: No Education: Grade School Difficulty w/ Childcare or Family Care: No Spiritual care concerns: No Same Day Admit/Disch: Med Pre-admit Medications Home Medications ?Medication ?Instructions ?Recorded ?Confirmed ?Type gabapentin 600 mg tablet 1,200 mg PO TID 03/15/23 12/13/24 History hydroxyzine HCl 50 mg tablet 50 mg PO TID PRN Itching 03/15/23 12/13/24 History omeprazole 40 mg capsule,delayed 40 mg PO DAILY 03/15/23 12/13/24 History release tizanidine 4 mg tablet 4 mg PO BID PRN Pain 03/15/23 12/13/24 History naproxen 500 mg tablet 500 mg PO BID PRN pain #20 tabs 05/25/23 12/13/24 Rx fenofibrate 54 mg tablet 54 mg PO DAILY #30 tabs 12/13/24 Rx hydrocodone 10 mg-acetaminophen 1 tablet PO Q6H PRN pain (scale 12/13/24 Rx 325 mg tablet score 7-10) #20 tabs metformin 1,000 mg tablet 1,000 mg PO BIDWMEAL #60 tabs 12/13/24 Rx ondansetron 4 mg disintegrating 4 mg PO Q6H PRN nausea and 12/13/24 Rx tablet vomiting #30 tabs Review of Systems Review of Systems All systems reviewed & are unremarkable except as noted in HPI and below Exam Const: General: comfortable and no acute distress HENMT: Ears: TM's normal bilaterally and TM abnormal Face/Nose/Sinus: Normal nares present Mouth: Yes moist mucous membranes Eyes: General: appearance normal, both eyes and all related structures Sclera: sclerae normal Pupils: Equal, round and reactive pupils present Neck: Neck: supple and no JVD Resp: Effort & Inspection: normal respiratory effort Auscultation: clear to auscultation bilaterally Cardio: Rate: regular rate Rhythm: regular rhythm Other: Patient having non-sustained episodes of bradycardia no pauses and asymptomatic noted on on telemetry GI: GI Palp: Yes Soft to palpation and Yes Tenderness to palpation present (GI) (Mild tenderness to mid upper ABD) Auscultation: normal bowel sounds Skin: General skin exam: normal color and no rashes or lesions noted Wounds: no wounds Neuro: General: gait normal Speech: normal speech Motor exam (neuro): 5/5 motor strength present throughout Sensory Exam: normal sensation Extrem: General: normal to inspection Psych: Mental Status: mental status grossly normal Affect: normal affect DS: Data Data Completed and Pending Labs on day of discharge: Labs from last 24 hours 12/13/24 12/13/24 12/13/24 08:25 07:40 05:12 WBC RBC Hgb Hct MCV MCH MCHC RDW Plt Count MPV Immature Gran % (Auto) Neut % (Auto) Lymph % (Auto) [place] % (Auto) Eos % (Auto) Baso % (Auto) Lymph # (Auto) [place] # (Auto) Eos # (Auto) Baso # (Auto) Abs Immat Gran (auto) Absolute Neuts (auto) Absolute Nucleated RBC Nucleated RBC % PT INR APTT Sodium 136 L Potassium 4.3 Chloride 111 H Carbon Dioxide 23 Anion Gap 2 L BUN 16 Creatinine 0.66 L Estim Creat Clear Calc 60 Estimated GFR > 60 Glucose 204 H POC Capillary Glucose 178 H Hemoglobin A1c Pending Calculated Osmolality 289 Lactic Acid Calcium 7.8 L Magnesium 1.6 Total Bilirubin 0.4 AST 16 ALT 11 Alkaline Phosphatase 88 Troponin I Total Protein 5.6 L Albumin 3.1 L Triglycerides 212 H Cholesterol 169 LDL Cholesterol, Calc 102 HDL Direct 25 Lipase 995 H Urine Color Urine Appearance Urine pH Ur Specific [place] Urine Protein Urine Glucose (UA) Urine Ketones Ur Blood (Man) Urine Nitrate Urine Bilirubin Urine Urobilinogen Leukocyte Esterase Rfl Urine WBC Ur Squamous Epith Cells Influenza A (RT-PCR) Influenza B (RT-PCR) RSV (RT-PCR) SARS-CoV-2 RNA (RT-PCR) 12/13/24 12/12/24 05:05 22:40 WBC 8.2 RBC 4.18 L Hgb 12.6 Hct 37.8 MCV 90.4 MCH 30.1 MCHC 33.3 RDW 13.0 Plt Count 300 MPV 10.5 Immature Gran % (Auto) 0.4 H Neut % (Auto) 63.0 Lymph % (Auto) 27.2 [place] % (Auto) 6.5 Eos % (Auto) 2.4 Baso % (Auto) 0.5 Lymph # (Auto) 2.22 [place] # (Auto) 0.53 Eos # (Auto) 0.20 Baso # (Auto) 0.04 Abs Immat Gran (auto) 0.03 H Absolute Neuts (auto) 5.15 Absolute Nucleated RBC 0.00 Nucleated RBC % 0.0 PT 10.9 INR 1.0 APTT 30.2 Sodium 136 L Potassium 2.8 L* Chloride 106 Carbon Dioxide 25 Anion Gap 5 BUN 16 Creatinine 0.91 Estim Creat Clear Calc 45 Estimated GFR > 60 Glucose 214 H POC Capillary Glucose Hemoglobin A1c Calculated Osmolality 289 Lactic Acid 1.0 Calcium 8.4 Magnesium Total Bilirubin 0.8 AST 19 ALT 15 Alkaline Phosphatase 108 Troponin I < 0.012 Total Protein 6.6 Albumin 3.7 Triglycerides Cholesterol LDL Cholesterol, Calc HDL Direct Lipase 1807 H Urine Color Light yellow Urine Appearance Clear Urine pH 6.0 Ur Specific [place] 1.010 Urine Protein Negative Urine Glucose (UA) Negative Urine Ketones Negative Ur Blood (Man) Negative Urine Nitrate Negative Urine Bilirubin Negative Urine Urobilinogen 0.2 Leukocyte Esterase Rfl Trace H Urine WBC None seen Ur Squamous Epith Cells Few Influenza A (RT-PCR) Negative Influenza B (RT-PCR) Negative RSV (RT-PCR) Negative SARS-CoV-2 RNA (RT-PCR) Negative Imaging Radiologist's impression: CLINICAL INDICATION: Lower abdominal pain 11/09/2024 COMPARISON: . TECHNIQUE: Multiple contiguous axial images of the abdomen and pelvis were performed following the administration of with 100 mL Omnipaque-350 intravenous contrast The dose-length product (DLP) was 270.13 mGy-cm. Automated exposure control and iterative reconstruction technique were employed. FINDINGS/OBSERVATIONS: Visualized lower thorax: The bilateral lung bases are clear. The heart is of normal size, without pericardial effusion. Small hiatal hernia is present. Liver: The liver demonstrates homogeneous enhancement and is enlarged measuring 21 cm in longitudinal dimension. Gallbladder and biliary system: The gallbladder is surgically absent. Pancreas: The pancreas enhances homogeneously without ductal dilatation. Spleen: The spleen enhances homogeneously and is not enlarged measuring 11 cm in longitudinal dimension. Kidneys: The bilateral kidneys enhance symmetrically without hydronephrosis or renal calculi. Adrenal glands: Unremarkable. Gastrointestinal tract: Colonic diverticulosis without surrounding inflammatory change. Fecal stasis within the colon. Appendix: The appendix is not definitively visualized. However, no pericecal inflammatory change is identified suggest the presence of acute appendicitis. Vasculature: Unremarkable. Lymph nodes: No pathologically enlarged or morphologically suspicious lymph nodes within the retroperitoneum or at the root of the mesentery. Pelvic structures: The bladder is distended, and otherwise unremarkable. The uterus is either surgically absent or markedly atrophic Body wall and musculoskeletal: Small fat-containing umbilical hernia. Compression of the superior endplate of L2, unchanged from prior. Remainder of the visualized portion of the lower thoracic and lumbar spines are unremarkable. IMPRESSION: Hepatomegaly Remainder of the examination is otherwise unremarkable DS: Summary Hospital Course Reason for hospitalization: acute pancreatitis Hospital Course: Catrina Wilson is a 59 year old female who presented to the emergency department with complaints of nausea vomiting and inability to tolerate any oral intake. patient reports past medical history diabetes, diabetic neuropathy and a previous abdominal surgery. Patient reports she attempted to take [id number] medications to relieve symptoms with no relief. in the emergency department patient was found to have an elevated lipase greater than 1800 CT abdomen with no significant findings otherwise all other labs and vitals were stable. Patient was admitted for further evaluation and treatment of acute pancreatitis. Overnight patient was having episodes of nonsustained bradycardia but was asymptomatic denied any dizziness, visual changes, shortness a breath, chest pain or syncopal episodes. ED physician did give [address] patient on continuous cardiac telemetry. Patient denied CP, SOB, dizziness, or current vomiting. Hospital Course: Patient was admitted to the medical unit and initiated on IV fluids and pain control initially given Toradol at did not help and was given a dose of Dilaudid after arrival to the medical unit patient did have episodes of asymptomatic bradycardia some concern for opioid sensitivity and was provided dose of atropine. patient denied any dizziness, visual changes, chest pain, shortness a breath patient did report she has a history of IKER and previously h ad wear a CPAP at does not have 1 at this current time. Evaluation this next day patient reported she has recently started on Mounjaro 3 months ago which could be the underlying cause of her idiopathic acute pancreatitis patient denies any alcohol use. I did a lipid panel performed which did so some elevated triglycerides and initiated her on fenofibrate. Patient the following day reported improvement to her symptoms in overall pain resolving she had no further nausea or vomiting overnight, lipase was down to 993, and patient was tolerating oral intake after I advanced her diet. at time discharge reviewed with patient to discontinue her Mounjaro use and I initiate her back on her metformin of a 1000 mg b.i.d. however she was previously on insulin recommended she will follow-up with her primary care physician to discuss diabetes management and follow-up A1c. I encouraged patient to continue to monitor her blood sugars at home during the transition of her diabetic medication. I did request patient follow-up and get a referral for further testing to include echocardiogram, possible stress test and 2 week event monitor to evaluate and monitor her bradycardia. patient was instructed to seek medical attention if she became symptomatic such as dizziness, shortness breath, chest pain or syncopal episodes. patient discharged home with family patient acknowledged and agreed with discharge plan. Status at Discharge Functional status at discharge: independent ambulation Overall status at discharge: patient is progressing back to baseline Time Spent with Patient Time attestation: Total time spent providing and/or coordinating discharge services: Time spent: Greater than 30 minutes DS: Admitting Diagnosis Discharge Date 12/13/2024 Admitting Diagnosis Acute pancreatitis DS: Discharge Diagnosis Discharge Diagnosis (1) Diabetes mellitus: Code(s): E11.9 - Type 2 diabetes mellitus without complications Status: Acute (2) Acute pancreatitis: Qualifiers: Acute pancreatitis complication: unspecified Pancreatitis type: idiopathic Qualified Code(s): K85.00 - Idiopathic acute pancreatitis without necrosis or infection Code(s): K85.90 - Acute pancreatitis without necrosis or infection, unspecified Status: Acute (3) Chronic pain: Code(s): G89.29 - Other chronic pain Status: Acute (4) Hypokalemia: Code(s): E87.6 - Hypokalemia Status: Acute (5) Asymptomatic bradycardia: Code(s): R00.1 - Bradycardia, unspecified Status: Acute Discharge Plan Discharge Attending physician on discharge: Ruben Cruz Consulting providers: Nita García Discharging Clinician: Nita García Anticipated Discharge Date/Time: 12/13/24 10:49 Patient Disposition: Home Activity: as tolerated Diet: as tolerated and other - see discharge instructions Discharge Instructions: 1). Acute Pancreatitis * Advance diet as tolerated recommended full liquids and bland food with aggressive oral hydration * You will need to discontinue your Mounjaro * you did have elevated triglycerides and I have started you on medication will need follow-up lipid panel in 3 months 2.) asymptomatic bradycardia * You were having non-sustained asymptomatic bradycardia with no pauses * Recommend follow-up with a Quality Assurance Assistant and outpatient echocardiogram and stress test * as well as a monitor for at least 2 weeks * If you develop episodes of dizziness, SOB, chest pain , or syncopal episodes seek medical attention 3.) Diabetes * I have stopped your Mounjaro and resumed your previous metformin you will need to follow up with your primary care physician within a week to discuss other options for glucose control need to resume previous insulin use How can you care for yourself at home? ? Keep track of any new symptoms or changes in your symptoms. ? Rest until you feel better. ? Be safe with medicines. Take your medicines exactly as prescribed. Call your doctor if you think you are having a problem with your medicine. ? Do not drive after taking a prescription pain medicine. ? Ensure to follow-up with primary care physician as indicated and provide updated medication list provided to you at discharge. When should you call for help? Call 911 anytime you think you may need emergency care. For example, call if: ? You passed out (lost consciousness). Call your doctor now or seek immediate medical care if: ? You have new symptoms like fever, difficulty breathing, Chest pain, vomiting, or rash. ? You have new or different pain. ? You are confused and are having trouble thinking clearly. ? Your symptoms are getting worse. Watch closely for changes in your health, and be sure to contact your doctor if: ? You do not get better as expected. Patient Instructions: Antibiotic Form, Hydrocodone/Acetaminophen (By mouth), Metformin (By mouth), Pancreatitis (DC), Diabetic Neuropathy (DC), Managing Diabetes During Sick Days (DC), Bradycardia (DC), Diabetic Hyperglycemia (DC), Diabetes and Nutrition (DC) Patient Language: [place]guill[place] Stand Alone Forms: General Discharge Information Follow-up/Referrals: Danyel,Leonor Márquez, BATHROOM TILING PROFESSIONAL [Primary Care Provider] - 1 week Discharge Medications: New fenofibrate 54 mg tablet 54 mg PO DAILY Qty: 30 0RF metformin 1,000 mg tablet 1,000 mg PO BIDWMEAL Qty: 60 0RF ondansetron 4 mg tablet,disintegrating 4 mg PO Q6H PRN (Reason: nausea and vomiting) Qty: 30 0RF Continued gabapentin 600 mg tablet 1,200 mg PO TID tizanidine 4 mg tablet 4 mg PO BID PRN (Reason: Pain) hydroxyzine HCl 50 mg tablet 50 mg PO TID PRN (Reason: Itching) omeprazole 40 mg capsule,delayed release(DR/EC) 40 mg PO DAILY naproxen 500 mg tablet 500 mg PO BID PRN (Reason: pain) Qty: 20 0RF hydrocodone-acetaminophen 10-325 mg tablet 1 tablet PO Q6H PRN (Reason: pain (scale score 7-10)) Qty: 20 0RF Date of admission: 12/13/24 02:51 Primary Care Provider: DanyelLeonor Admitting Provider: Giovanny Vanessa Attending physician on admission: Giovanny Vanessa Condition: Stable Quality VTE Prophylaxis VTE prophylaxis: mechanical ordered -Patient's previous records reviewed on admission -ER notes reviewed in detail on admission -discussed all findings and current treatment plan with patient/Family/POA -Consultations reviewed for recommendations -Patient's disposition for safe discharge discussed with case manager specialist Dictation performed by [employer] direct speech recognition software, therefore weaving supervisor variants and typographical errors may occur. Hospitalist MIPS Advance Care Plan I have confirmed that the patient's Advanced Care Plan is present, code status is documented, or surrogate decision maker is listed in patient medical record.: Yes Medication Reconciliation I have utilized all available resources to obtain, update and review the patients current medications (includes all prescriptions, OTC, herbals, cannabis, and nutritional supplements).: Yes The patient is not eligible for med reconciliation; the patient is in a emergent medical situation where delaying treatment would jeopardize the patients health.: No Heart Failure (Exclusion) Patient has history of Heart Transplant or Left Ventricular Assistive Device?: No IF YES, STOP HERE Heart Failure (Qualifier) Patient has current or prior documentation of LVEF less than or equal to 40%, or mod/servere depressed LVSF?: No IF NO, STOP HERE
--- NOTE | 2024-12-13 11:45 | PC.NURSE ---
Discharge instructions given to patient. Patient voiced understanding. Personal items sent home with patient. Patient left unit ambulating with nurse and family member. Patient left hospital grounds in privately owned vehicle. Prescriptions transcribed and electronically sent to patient's pharmacy.
[2024-12-13 15:30] LABS: Hemoglobin A1C 9.5 % (<5.7)
--- OUTSIDE RECORDS SUMMARY | 2024-12-15 08:40 | XMS_ITS | CONTINUITY OF CARE DOCUMENT ---
Author Name vinay mclean Address Unknown Organization [facility] Address [address] [place] [address] Phone [phone] Care Team Providers Care Automatic Chief Name Role Phone vinay mclean Unavailable Unavailable
--- NOTE | 2024-12-15 09:08 | PC.NURSE ---
Spoke with Catrina for discharge call back today. She informs she has not question or concerns with discharge instruction but was still have abdominal pain. Encouraged patient to follow up with [facility] and pain clinic.
== END 2024-12-13 11:45 | disposition home or self-care (01) ==
LOC: CHSED 12-13 02:48 → CHS2ND 12-13 07:35
PROVIDERS: Nurse Practitioner Family; Admitting Provider Internal Medicine; Emergency Provider Emergency Medicine; PCP Nurse Practitioner; Visit Provider Internal Medicine
DX: K85.00 Idiopathic acute pancreatitis without necrosis or infection (principal); R00.1 Bradycardia, unspecified; E11.40 Type 2 diabetes mellitus with diabetic neuropathy, unspecified; G89.29 Other chronic pain; E87.6 Hypokalemia; F17.210 Nicotine dependence, cigarettes, uncomplicated; Z20.822 Contact with and (suspected) exposure to COVID-19; Z79.899 Other long term (current) drug therapy; Z90.49 Acquired absence of other specified parts of digestive tract
CPT/HCPCS: 36415; 74177; 80053; 80061; 81001; 82948; 83036; 83605; 83690; 83735; 84484; 85025; 85610; 85730; 87040; 87637; 93005; 96361; 96365; 96366; 96367; 96375; 96376; 99285; A9270; G0378; J0461; J0696; J1171; J1885; J2405; J3480; J7030; Q9967

== ENCOUNTER 2024-12-16 21:13 | Emergency (ER) | payer MEDICARE, MEDICAID, SELFPAY ==
--- NOTE | ~2024-12-16 | XR_ITS ---
XR chest 1V portable Ordering provider: Gilberto White MD History: 59 years Female with . left basilar rales, upper abdomen pain . Comparison: March 15, 2023 FINDINGS: MEDIASTINUM: The cardiac silhouette is not enlarged. LUNGS: No infiltrates, effusions or pneumothorax. OTHER: No free air under the diaphragm. Degenerative changes of the spine. IMPRESSION: No acute cardiopulmonary pathology. Reviewed, dictated and finalized at location A.
[2024-12-16 21:13] VITALS: BP 162/88; PULSE 84; RESP 18; TEMP 36.4; O2SAT 98
--- OUTSIDE RECORDS SUMMARY | 2024-12-16 21:22 | XMS_ITS | CONTINUITY OF CARE DOCUMENT ---
Author Name vinay mclean Address Unknown Organization [facility] Address [address] [place] [address] Phone [phone] Care Team Providers Care Drilling Superintendent Name Role Phone vinay mclean Unavailable Unavailable
--- NOTE | 2024-12-16 21:33 | ED.ABDPAIN ---
HPI - Abdominal Pain General Chief Complaint: Abdominal Pain Stated Complaint: abd pain Time Seen by Provider: 12/16/24 21:32 Source: patient Mode of arrival: ambulatory Limitations: no limitations History of Present Illness HPI narrative: 59-year-old female smoker with a history of diabetes mellitus, chronic pain, status post gastric surgery, cholecystectomy presented to the ED on 12/13/2024 with epigastric pain and was diagnosed to have pancreatitis with a serum lipase of 1600. The patient left the hospital as she had to take care of her 7-year-old child. The patient returns to the ED with -- epigastric pain since this morning. The pain has gradually gotten worse. -- patient has nausea without any vomiting. She had five episodes of diarrhea since this morning. No fever or chills Patient is nonalcoholic. She had cholecystectomy done for injury dyskinesia. Pancreatitis is thought to be secondary to Mounjaro. MD elicited complaint: abdominal pain Onset (ago): hour(s) ( 12 hours) Pain Consistency: constant Location: epigastric Severity: severe Quality: aching Radiation: none Migration to: no migration Exacerbating factors: nothing Relieving factors: nothing Associated symptoms: diarrhea Related Data Patient : No Home Medications ?Medication ?Instructions ?Recorded ?Confirmed ?Last Taken ?Type gabapentin 600 mg tablet 1,200 mg PO TID 03/15/23 12/13/24 12/13/24 History hydroxyzine HCl 50 mg tablet 50 mg PO TID PRN Itching 03/15/23 12/13/24 12/13/24 History omeprazole 40 mg capsule,delayed 40 mg PO DAILY 03/15/23 12/13/24 12/13/24 History release tizanidine 4 mg tablet 4 mg PO BID PRN Pain 03/15/23 12/13/24 12/13/24 History Allergies Allergy/AdvReac Type Severity Reaction Status Date / Time hydromorphone (From Dilaudid) AdvReac Intermediate Bradicardia Verified 12/16/24 23:11 Review of Systems Review of Systems: All systems reviewed & are unremarkable except as noted in HPI and below Constitutional: Constitutional: Reports as per HPI and Reports no additional constitutional complaints Eyes: Eyes: Reports as per HPI and Reports no additional eye complaints ENT: Reports system reviewed and no additional complaints, except as documented and Reports as per HPI Cardiovascular: Cardiovascular: Reports as per HPI and Reports no additional cardiovascular complaints Respiratory: Respiratory: Reports as per HPI and Reports no additional respiratory complaints Gastrointestinal: Gastrointestinal: Reports as per HPI, Reports no additional gastrointestinal complaints and Reports abdominal pain Genitourinary: Genitourinary: Reports no additional female genitourinary complaints and Reports as per HPI Musculoskeletal: Musculoskeletal: Reports no additional musculoskeletal complaints and Reports as per HPI Integumentary/Breasts: Skin/Breast: Reports system reviewed and no additional complaints, except as docu and Reports as per HPI Neurologic: Reports system reviewed and no additional complaints, except as documented and Reports as per HPI Psychiatric: Psychiatric: Reports no additional psychiatric complaints and Reports as per HPI Endocrine: Endocrine: Reports no additional endocrine complaints and Reports as per HPI Hematologic/Lymphatic: Hematologic/Lymphatic: Reports no additional hematologic/lymphatic complaints and Reports as per HPI Allergic/Immunologic: Allergic/Immunologic: Reports no additional allergic/immunologic complaints and Reports as per HPI [facility] Past Medical History Medical History Chronic pain Diabetes mellitus Social History Social History Smoking packs per day: 1 Smoking cigarettes per day: 20.0 Years smoked: 30 Smoking pack-years: 30.00 Smoking status: Current every day smoker Tobacco type: cigarettes Alcohol intake: never Substance use: never Substance use type: does not use Do You Feel Safe in your Home?: Yes Lack of Transportation: YES Lack of Food: Never True Current Housing: I Have Housing Concerned About Future Housing: No Difficulty Paying Gas/Electric Bills: YES Difficulty Paying for Meds: No Currently Unemployed: No Education: Grade School Difficulty w/ Childcare or Family Care: No Spiritual care concerns: No Exam Narrative: Blood pressure 162/88. Afebrile. Oxygen saturation of 98% with a respiratory rate of 18. Const: General: ill appearing Nutritional Appearance: well nourished Orientation/consciousness: patient oriented x3 Limitations: no limitations HENMT: Head: normal to inspection Ears: external ears normal Face/Nose/Sinus: Normal external nose present Face and sinus: normal facial exam Mouth: Yes Normal oral and palatal mucosa present Throat: posterior oropharynx normal Eyes: Conjunctivae: conjunctivae normal Pupils: Equal, round and reactive pupils present EOM: EOMs intact bilaterally Direct Ophthalmoscopy: no photophobia Neck: Neck: normal visual inspection, no lymphadenopathy and no meningeal signs Chest: Chest palpation & inspection: normal inspection of the chest Resp: Effort & Inspection: normal respiratory effort Other: Rales at the left base. Scattered rhonchi. Cardio: Rate: regular rate Rhythm: regular rhythm GI: GI Palp: Yes Soft to palpation Auscultation: normal bowel sounds Other: Epigastric tenderness without any rigidity /rebound. : General: Yes no CVA tenderness Back/Spine/Pelvis: Back: no CVA tenderness Skin: General skin exam: normal color Rashes: no rashes Wounds: no wounds Neuro: General: patient oriented x3, moves all extremities, no meningeal signs, no focal motor deficits and CN's II-XI intact bilaterally Cranial nerves: Yes Nystagmus not present Speech: normal speech Extrem: General: normal to inspection and no clubbing, cyanosis or edema Psych: Mental Status: mental status grossly normal Affect: normal affect Attitude: cooperative Course Course Emergency Course: epigastric pain secondary to recurring pancreatitis, patient was noted to have a lipase of 156. Hyperglycemia- patient had been on metformin and Mounjaro. advised the patient to follow up with primary care physician for blood pressure medications. Currently the patient has decreased oral intake. Patient had an HB A1c of 9.5. diarrhea Vital Signs Vital signs: Vital Signs Temperature 36.4 C L 12/16/24 21:13 Pulse Rate 84 12/16/24 21:13 Respiratory Rate 18 12/16/24 21:13 Blood Pressure 162/88 H 12/16/24 21:13 Pulse Oximetry 98 12/16/24 21:13 Oxygen Delivery Room Air 12/16/24 21:13 Temperature 36.4 C L 12/16/24 21:13 Pulse Rate 84 12/16/24 21:13 Respiratory Rate 18 12/16/24 21:13 Blood Pressure 162/88 H 12/16/24 21:13 Pulse Oximetry 98 12/16/24 21:13 Oxygen Delivery Room Air 12/16/24 21:13 MDM - Abdominal Pain MDM Narrative Medical decision making narrative: epigastric pain hyperglycemia diarrhea Differential Diagnosis Differential diagnosis: Likely calculus of kidney and gastroenteritis Medical Records Attestation: I reviewed the patient's medical records. Lab Data Attestation: I reviewed the patient's lab results. 12/16/24 22:03 12/16/24 22:03 Labs: Lab Results 12/16/24 12/16/24 Range/Units 22:03 22:22 WBC 7.5 (4.8-10.8) K/mm3 RBC 4.12 L (4.20-5.40) M/mm3 Hgb 12.5 (12.0-15.0) g/dL Hct 37.5 (35.0-49.0) % MCV 91.0 (78.0-102.0) fL MCH 30.3 (27.0-31.0) pg MCHC 33.3 (32-36) g/dL RDW 13.5 (11.6-14.4) % Plt Count 301 (150-420) K/mm3 MPV 10.5 (9.2-11.8) fl Immature Gran % (Auto) 0.3 H (0.0-0.0) % Neut % (Auto) 49.4 L (50.0-70.0) % Lymph % (Auto) 41.1 (18.0-42.0) % [place] % (Auto) 6.3 (2.0-11.0) % Eos % (Auto) 2.4 (1.0-6.0) % Baso % (Auto) 0.5 (0.0-1.0) % Lymph # (Auto) 3.09 (1.10-4.50) K/mm3 [place] # (Auto) 0.47 (0.10-0.90) K/mm3 Eos # (Auto) 0.18 (0.02-0.50) K/mm3 Baso # (Auto) 0.04 (0.00-0.10) K/mm3 Abs Immat Gran (auto) 0.02 H (0.00-0.00) K/mm3 Absolute Neuts (auto) 3.72 (1.70-7.20) K/mm3 Absolute Nucleated RBC 0.00 (0.00-0.00) K/mm3 Nucleated RBC % 0.0 (0-0.0) % PT 10.9 (9.50-12.1) Seconds INR 1.0 Sodium 139 (137-145) mmol/L Potassium 3.5 (3.4-5.0) mmol/L Chloride 113 H (98-107) mmol/L Carbon Dioxide 20 L (22-30) mmol/L Anion Gap 6 (4-12) mmol/L BUN 11 D (7-17) mg/dL Creatinine 0.49 L (0.7-1.0) mg/dL Estim Creat Clear Calc 79 ml/min Estimated GFR > 60 (59 - ) Glucose 243 H (65-110) mg/dL Calculated Osmolality 295 (285-295) mOsm/kg Lactic Acid 1.0 (0.4-2.0) mmol/L Calcium 8.6 (8.4-10.2) mg/dL Magnesium 1.6 (1.6-2.3) mg/dL Total Bilirubin 0.3 (0.2-1.3) mg/dL Direct Bilirubin < 0.1 (0-0.3) mg/dL AST 16 (14-36) U/L ALT 11 (6-35) U/L Alkaline Phosphatase 82 (38-126) U/L Total Protein 6.6 (6.3-8.2) g/dL Albumin 3.8 (3.5-5.1) g/dL Lipase 156 (23-300) U/L Urine Color Light yellow (Yellow) Urine Appearance Clear (Clear) Urine pH 6.0 (5.0-8.0) Ur Specific [place] 1.010 (1.010-1.020) Urine Protein Negative (Negative) Urine Glucose (UA) 1+ H (Negative) Urine Ketones Negative (Negative) Ur Blood (Man) Negative (Negative) Urine Nitrate Negative (Negative) Urine Bilirubin Negative (Negative) Urine Urobilinogen 0.2 (0.2-1.0) mg/dL Leukocyte Esterase Rfl Trace H (Negative) TAURUS/UL Urine RBC 0-2 (0-2) /hpf Urine WBC 0-3 (0-3) /hpf Ur Squamous Epith Cells Rare (Few) /hpf Urine Bacteria Trace (None) /hpf Imaging Data Radiologist's impression: ITS Impressions Chest X-Ray 12/16/24 22:13 IMPRESSION: No acute cardiopulmonary pathology. Discharge Plan Discharge Clinical Impression: Epigastric pain, Hyperglycemia due to diabetes mellitus Diarrhea Qualifiers: Diarrhea type: unspecified type Qualified Code(s): R19.7 - Diarrhea, unspecified Patient Disposition: Home Condition: Stable Instructions: Antibiotic Form, Pancreatitis (ED), Diabetic Hyperglycemia (ED) Patient Language: Yi Prescriptions: No Action gabapentin 600 mg tablet 1,200 mg PO TID tizanidine 4 mg tablet 4 mg PO BID PRN (Reason: Pain) hydroxyzine HCl 50 mg tablet 50 mg PO TID PRN (Reason: Itching) omeprazole 40 mg capsule,delayed release(DR/EC) 40 mg PO DAILY naproxen 500 mg tablet 500 mg PO BID PRN (Reason: pain) Qty: 20 0RF fenofibrate 54 mg tablet 54 mg PO DAILY Qty: 30 0RF metformin 1,000 mg tablet 1,000 mg PO BIDWMEAL Qty: 60 0RF hydrocodone-acetaminophen 10-325 mg tablet 1 tablet PO Q6H PRN (Reason: pain (scale score 7-10)) Qty: 20 0RF ondansetron 4 mg tablet,disintegrating 4 mg PO Q6H PRN (Reason: nausea and vomiting) Qty: 30 0RF Follow-up/Referrals: Danyel,Leonor Márquez GUM MACHINE FILLER [Primary Care Provider] - Time of Disposition: 23:34
--- OUTSIDE RECORDS SUMMARY | 2024-12-16 21:43 | XMS_ITS | CONTINUITY OF CARE DOCUMENT ---
Author Name vinay mclean Address Unknown Organization [facility] Address [address] [facility] [address] [facility] [address] [place] [address] Phone [phone] Care Team Providers Care Mechanical Estimator Name Role Phone vinay mclean Unavailable Unavailable
[2024-12-16] MEDS: fentaNYL CITRATE INJ (*CRX) 100 MCG/2 ML VIAL 25 MCG IV PUSH (22:07)
[2024-12-16] MEDS: PROCHLORPERAZINE EDISYLATE 10 MG/2 ML VIAL IV PUSH (22:07)
[2024-12-16] MEDS: LACTATED RINGERS 1,000 ML 999 ML IV CONT (22:08)
[2024-12-16 22:11] LABS: Basophils Absolute Auto 0.04 K/mm3 (0.00-0.10); Basophils Percent Auto 0.5 % (0.0-1.0); Eosinophils Absolute Auto 0.18 K/mm3 (0.02-0.50); Eosinophils Percent Auto 2.4 % (1.0-6.0); Hematocrit 37.5 % (35.0-49.0); Hemoglobin 12.5 g/dL (12.0-15.0); Immature Granulocyte Absolute 0.02 K/mm3 (0.00-0.00); Immature Granulocyte Percent A 0.3 % (0.0-0.0); Lymphocytes Absolute Auto 3.09 K/mm3 (1.10-4.50); Lymphocytes Percent Auto 41.1 % (18.0-42.0); Mean Corpuscular HGB Conc 33.3 g/dL (32-36); Mean Corpuscular Hemoglobin 30.3 pg (27.0-31.0); Mean Platelet Volume 10.5 fl (9.2-11.8); Monocytes Absolute Auto 0.47 K/mm3 (0.10-0.90); Monocytes Percent Auto 6.3 % (2.0-11.0); Neutrophils Absolute Auto 3.72 K/mm3 (1.70-7.20); Neutrophils Percent Auto 49.4 % (50.0-70.0); Platelet Count Result 301 K/mm3 (150-420); Red Blood Count 4.12 M/mm3 (4.20-5.40); Red Cell Distribution Width 13.5 % (11.6-14.4); White Blood Count 7.5 K/mm3 (4.8-10.8)
[2024-12-16 22:22] LABS: Alanine Aminotransferase 11 U/L (6-35); Albumin Level 3.8 g/dL (3.5-5.1); Alkaline Phosphatase 82 U/L (38-126); Anion Gap 6 mmol/L (4-12); Aspartate Amino Transferase 16 U/L (14-36); Bilirubin Direct < 0.1 mg/dL (0-0.3); Bilirubin,Total 0.3 mg/dL (0.2-1.3); Blood Urea Nitrogen 11 mg/dL (7-17); Calcium 8.6 mg/dL (8.4-10.2); Carbon Dioxide 20 mmol/L (22-30); Chloride 113 mmol/L (98-107); Estimated CRCL calculation 79 ml/min; Estimated Glomerular Filt Rate > 60; Glucose 243 mg/dL (65-110); Lipase 156 U/L (23-300); Magnesium 1.6 mg/dL (1.6-2.3); Osmolality Calculated 295 mOsm/kg (285-295); Potassium 3.5 mmol/L (3.4-5.0); Sodium 139 mmol/L (137-145); Total Protein 6.6 g/dL (6.3-8.2)
[2024-12-16 22:23] LABS: Prothrombin Time 10.9 Seconds (9.50-12.1)
[2024-12-16 22:28] LABS: Add Urine Microscopic? YES; Appearance Urine Clear (Clear); Bilirubin Urine Negative (Negative); Blood Urine Negative (Negative); Color Urine Light Yellow (Yellow); Glucose Urine UA 1+ (Negative); Ketones Urine Negative (Negative); Leukocyte Esterase Ur Trace LEU/UL (Negative); Nitrate Urine Negative (Negative); Protein Urine Negative (Negative); Urobilinogen Urine 0.2 mg/dL (0.2-1.0)
[2024-12-16 22:31] LABS: Bacteria Urine Trace /hpf; RBC Urine 0-2 /hpf (0-2); Squamous Epithelial Cell Urine Rare /hpf (Few); WBC Urine 0-3 /hpf (0-3)
[2024-12-16 23:53] VITALS: BP 130/91; PULSE 72; RESP 14; TEMP 36.3; O2SAT 96
== END 2024-12-16 23:59 | disposition home or self-care (01) ==
PROVIDERS: Emergency Provider Internal Medicine Critical Care Medicine; PCP Nurse Practitioner
DX: E11.65 Type 2 diabetes mellitus with hyperglycemia (principal); R19.7 Diarrhea, unspecified; R10.13 Epigastric pain; F17.210 Nicotine dependence, cigarettes, uncomplicated; Z90.49 Acquired absence of other specified parts of digestive tract; Z79.899 Other long term (current) drug therapy
CPT/HCPCS: 36415; 71045; 80048; 80076; 81001; 83605; 83690; 83735; 85025; 85610; 96361; 96374; 96375; 99284; J0780; J3010; J7120

== ENCOUNTER 2025-02-05 00:52 | Emergency (ER) | payer MEDICARE, MEDICAID, SELFPAY ==
[2025-02-05 00:55] VITALS: BP 137/85; PULSE 82; RESP 20; TEMP 36.6; O2SAT 95
--- OUTSIDE RECORDS SUMMARY | 2025-02-05 00:55 | XMS_ITS ---
Author Organization Unknown Address [address] [place] [address] [phone] Phone Care Team Providers Care Development Geologist Name Role Phone ROBNESSAGREY COXIE Attending Unavailable [...] 187 CVX Pneumococcal conjugate PCV20 , polysaccharide [id number] conjugate, adjuvant, PF 05/08/2023 Completed 216 CVX [...] Electronically signed by Warner Rhodes M.D. CH: Report ID: [id number] Reading Location: [id number] Social History Type Status Start Date End Date Code Code Syst em Smoking History Current every day smoker 205524852 SNOMED CT Sex Female Hospital Discharge Instructions [...] Code System No Known Allergies Moderate Active 291201710 SN OMED-CT Plan of Treatment No Data Found Encounters Encounter Diagnosis Start Date Code Code Sys tem Functional dyspepsia 07/01/2024 SNOMED- CT Personal Care Team Section Performer Name Performer Role Active Date Inactive NIKKO Izaguirre PCP - Primary care physician 2021-08-22 2024-01-09 CHANO ORDONEZ PCP - Primary care physician 2024-05-27 Imaging Narrative Notes
--- OUTSIDE RECORDS SUMMARY | 2025-02-05 00:55 | XMS_ITS ---
Author Organization Unknown Address [address] [place] [address] [phone] Phone Care Team Providers Care Public Safety Telecommunicator Name Role Phone MATEUSZ US Attending Unavailable [...] 187 CVX Pneumococcal conjugate PCV20 , polysaccharide [id number] conjugate, adjuvant, PF 05/08/2023 Completed 216 CVX [...] Shoshana Irizarry M.D. TW: TW Report ID: [id number] Reading Location: [id number] Social History Type Status Start Date End Date Code Code Syst em Smoking History Current every day smoker 306411155 SNOMED CT Sex Female Hospital Discharge Instructions [...] Code System No Known Allergies Moderate Active 468196675 SN OMED-CT Plan of Treatment No Data [...]
--- OUTSIDE RECORDS SUMMARY | 2025-02-05 00:55 | XMS_ITS | Encounter Summary ---
Author Organization [facility] Address [facility] [place] [address] Care Team Providers Care Ore Charger Name Role Phone Eriberto Malone MD Primary Care Provider [phone] None, Provider Primary Care Provider Unavaila ble None, Provider Primary Care Provider Unavaila ble Pearl Marin MD Primary Care Provider [phone] None, Provider Primary Care Provider Unavaila ble Valerie Kilgore MD Primary Care Provider + [phone] Jack Reynaga SOUND TESTER Unavailable [phone] Linda George MD Unavailable Bakari Reyna MD Primary Care Provider [phone] Encounter Details Date Type Department Care Team (Late st Contact Info) Description 12/27/2018 Abstract [facility] CONVERSION [address] [place] [address] , Generic Conversion, Social History Tobacco Use Types Packs/Day Years Used Date Smoking Tobacco: Smoker, Current Status Unknown Comments Unknown Sex and Gender Information Value Date Recorded Sex Assigned at Female 09/11/2024 10:33 AM CERTIFIED DETENTION DEPUTY Legal Sex Female 9:47 PM CDT Gender [...] Rule Out 06/21/2020 06/21/2020 06/21/2020 6:49 PM CERTIFIED DETENTION DEPUTY COVID-19 Rule Out 06/21/2020 06/21/2020 06/22/2020 5:01 PM CERTIFIED DETENTION DEPUTY COVID-19 Rule Out 07/18/2021 07/18/2021 07/18/2021 9:43 PM CERTIFIED DETENTION DEPUTY COVID-19 Confirmed Comment:07/28/[address] Dietrich, patient meets [facility] guidelines for discontinuing COVID isolation. (RG) 07/18/2021 07/18/2021 07/28/2021 1:[address] COVID-19 Rule Out 05/08/2024 05/08/2024 05/08/2024 9:36 PM CDT documented as of this encounter Care Teams Ore Charger Relationship Specialty Start Date End Date Eriberto Malone MD [address] [facility] [address] [place] [address] PCP - General INTERNAL MEDICINE 12/26/18 06/14/19 None, Provider, PCP - General 06/22/19 09/06/19 None, Provider, PCP - General 09/07/19 10/04/19 Pearl Marin MD [address] [place] [address] PCP - General INTERNAL MEDICINE 10/05/19 03/14/23 None, ProviderMD PCP - General UNKNOWN PHYSICIAN SPECIALTY 03/15/23 07/04/23 Valerie Kilgore MD [address] [place] [phone] PCP - General FAMILY PRACTICE 07/05/23 11/17/24 [place] [address] [place] [address] PCP - General FAMILY PRACTICE 11/18/24 Jack Reynaga NP [address] [place] [address] Nurse Practitioner Family 01/03/24 Linda George MD [address] [place] [address] Consulting Physician CARDIOVASCULAR DISEASE 01/03/24 documented as of this encounter
--- OUTSIDE RECORDS SUMMARY | 2025-02-05 00:55 | XMS_ITS ---
Author Organization Unknown Address [address] [place] [address] [phone] Phone Care Team Providers Care Scientific Photographer Name Role Phone SHEPARD TAMIKO Attending Unavailable [...] 187 CVX Pneumococcal conjugate PCV20 , polysaccharide [id number] conjugate, adjuvant, PF 05/08/2023 Completed 216 CVX [...] Pedro Serrano M.D. NS: NS Report ID: [id number] Reading Location: [id number] RIBS RIGHT W/ 1V CHEST - Com [...] Kashif Li M.D. RB: TED Report ID: [id number] Reading Location: [id number] SHOULDER MIN 2V RIGHT - Comp leted: [...] Electronically signed by Darell Pires M.D. MM: MM Report ID: [id number] Reading Location: [id number] Social History Type Status Start Date End Date Code Code Syst em Smoking History Current every day smoker 696823257 SNOMED CT Sex Female Hospital Discharge Instructions [...] Code System No Known Allergies Moderate Active 094022070 SN OMED-CT Plan of Treatment No Data [...]
--- OUTSIDE RECORDS SUMMARY | 2025-02-05 00:55 | XMS_ITS | Encounter Summary ---
Author Organization [facility] Address [facility] [place] [address] Care Team Providers Care Coat Hanger Shaper Machine Operator Name Role Phone Eriberto Malone MD Primary Care Provider [phone] None, Provider Primary Care Provider Unavaila ble None, Provider Primary Care Provider Unavaila ble Pearl Marin MD Primary Care Provider [phone] None, Provider Primary Care Provider Unavaila ble Valerie Kilgore MD Primary Care Provider + [phone] Jack Reynaga HEALTHCARE SPECIALIST Unavailable [phone] Linda George MD Unavailable Bakari Reyna MD Primary Care Provider [phone] Encounter Details Date Type Department Care Team (Late st Contact Info) Description 10/05/2017 Abstract [facility] CONVERSION [address] [place] [address] , Generic Conversion, Social History Tobacco Use Types Packs/Day Years Used Date Smoking Tobacco: Smoker, Current Status Unknown Comments Unknown Sex and Gender Information Value Date Recorded Sex Assigned at Female 09/11/2024 10:33 AM WHEEL GRINDER Legal Sex Female 9:47 PM CDT Gender [...] Rule Out 06/21/2020 06/21/2020 06/21/2020 6:49 PM WHEEL GRINDER COVID-19 Rule Out 06/21/2020 06/21/2020 06/22/2020 5:01 PM WHEEL GRINDER COVID-19 Rule Out 07/18/2021 07/18/2021 07/18/2021 9:43 PM WHEEL GRINDER COVID-19 Confirmed Comment:07/28/[address] Dietrich, patient meets [facility] guidelines for discontinuing COVID isolation. (RG) 07/18/2021 07/18/2021 07/28/2021 1:[address] COVID-19 Rule Out 05/08/2024 05/08/2024 05/08/2024 9:36 PM CDT documented as of this encounter Care Teams Coat Hanger Shaper Machine Operator Relationship Specialty Start Date End Date Eribreto Malone MD [address] [facility] [address] [place] [address] PCP - General INTERNAL MEDICINE 12/26/18 06/14/19 None, ProviderMD PCP - General 06/22/19 09/06/19 None, Provider, PCP - General 09/07/19 10/04/19 Pearl Marin MD [address] [place] [address] PCP - General INTERNAL MEDICINE 10/05/19 03/14/23 None, ProviderMD PCP - General UNKNOWN PHYSICIAN SPECIALTY 03/15/23 07/04/23 Valerie Kilgore MD [address] [place] [phone] PCP - General FAMILY PRACTICE 07/05/23 11/17/24 [place] [address] [place] [address] PCP - General FAMILY PRACTICE 11/18/24 Jack Reynaga NP [address] [place] [address] Nurse Practitioner Family 01/03/24 Linda George MD [address] [place] [address] Consulting Physician CARDIOVASCULAR DISEASE 01/03/24 documented as of this encounter
--- OUTSIDE RECORDS SUMMARY | 2025-02-05 00:55 | XMS_ITS ---
Author Organization Unknown Address [address] [place] [address] [phone] Phone Care Team Providers Care Medical Aide Name Role Phone ROBRIMA LINA Attending Unavailable MERY Gasca Primary Unavailable Immunization [...] 187 CVX Pneumococcal conjugate PCV20 , polysaccharide [id number] conjugate, adjuvant, PF 05/08/2023 Completed 216 CVX COVID-19, mRNA, LNP-S, PF, prasad-sucrose, 30 mcg/0.3 mL 04/25/2023 Completed 309 CVX Results HIP RT 2 OR 3 VIEWS - Comple corbin: 01/12/2025 15:57 LOINC: \TM00\\12PI\\DRAo\\BM09\ \MRHo\ [address] [address] ---------NAME--------- NUMBER SEX AGE ADMIT DISC. XRAY# F/C TYPE YANNA JOHNSON [id number] F 59 01/12/25 01/12/25 21310 MB3 O/P DATE OF : 1965 M/R# [id number] PH#: [phone] [id number] \MRHx\ LOCATION: TRANSCRIBED: 01/12/25 16:09 HIP RT 2 OR 3 VIEWS [id number] COMPLETED:01/12/25 15:57 [id number] {REASON-HIP: PAIN RT HIP PHYSICIAN: JENNIFFER R A D I O L O G Y R E P O R T CLINICAL INDICATION: PAIN RT HIP 59-year-old female with right hip pain after fall. TECHNIQUE: AP and frogleg lateral views of the right hip were performed. HIP RT 2 OR 3 VIEWS Comparison: None FINDINGS/IMPRESSION: No acute fracture or significant degenerative changes of the right hip. DENCY PROGRAM COORDINATOR \ITLo\ \UNDo\ \UNDx\ \ITLx\ Reviewed and Electronically Signed by: Mckay Kapoor MD Signed Date: 01/12/25 16:09 Social History Type Status Start Date End Date Code Code Syst em Smoking History Current every day smoker 113764793 SNOMED CT Sex Female Hospital Discharge Instructions [...] Code System No Known Allergies Moderate Active 924912332 SN OMED-CT Plan of Treatment No Data Found Encounters Encounter Diagnosis Start Date Code Code Sys paige 01/12/2025 [id number] SNOMED-CT Personal Care Team Section Performer Name Performer Role Active Date Inactive NIKKO Izaguirre PCP - Primary care physician 2021-08-22 2024-01-09 CHANO ORDONEZ PCP - Primary care physician 2024-05-27 Imaging Narrative Notes [facility] 01/12/2025 16:12 [facility] [address] [place] [address] ---------NAME--------- NUMBER SEX AGE ADMIT DISC. XRAY# F/C TYPE YANNA JOHNSON [id number] F 59 01/12/25 01/12/25 19694 MB3 O/P DATE OF : 1965 M/R# [id number] #: [id number] LOCATION: TRANSCRIBED: 01/12/25 16:09 HIP RT 2 OR 3 VIEWS [id number] COMPLETED:01/12/25 15:57 [id number] {REASON-HIP: PAIN RT HIP PHYSICIAN: JENNIFFER RADIOLOGY REPORT CLINICAL INDICATION: PAIN RT HIP 59-year-old female with right hip pain after fall. TECHNIQUE: AP and frogleg lateral views of the right hip were performed. HIP RT 2 OR 3 VIEWS Comparison: None FINDINGS/IMPRESSION: No acute fracture or significant degenerative changes of the right hip. DENCY PROGRAM COORDINATOR Reviewed and Electronically Signed by: Mckay Kapoor MD Signed Date: 01/12/25 16:09
--- OUTSIDE RECORDS SUMMARY | 2025-02-05 00:56 | XMS_ITS ---
Author Organization Unknown Address [address] [place] [address] [phone] Phone Care Team Providers Care Gummed Tape Press Operator Name Role Phone KWAME Larose Attending [...] 187 CVX Pneumococcal conjugate PCV20 , polysaccharide [id number] conjugate, adjuvant, PF 05/08/2023 Completed 216 CVX COVID-19, mRNA, LNP-S, PF, prasad-sucrose, 30 mcg/0.3 mL 04/25/2023 Completed 309 CVX Social History Type Status Start Date End Date Code Code Syst em Smoking History Current every day smoker 954571018 SNOMED CT Sex Female Hospital Discharge Instructions [...] Code System No Known Allergies Moderate Active 506399703 SN OMED-CT Plan of Treatment No Data Found Encounters Encounter Diagnosis Start Date Code Code Sys tem Low back pain, unspecified 05/06/2024 S NOMED-CT Personal Care Team Section Performer Name Performer Role Active Date Inactive NIKKO Izaguirre PCP - Primary care physician 2021-08-22 2024-01-09 CHANO ORDONEZ PCP - Primary care physician 2024-05-27
--- OUTSIDE RECORDS SUMMARY | 2025-02-05 00:56 | XMS_ITS ---
Author Organization Unknown Address [address] [place] [address] [phone] Phone Care Team Providers Care Web Programmer Name Role Phone JENNIFFER COXIE Attending Unavailable [...] 187 CVX Pneumococcal conjugate PCV20 , polysaccharide [id number] conjugate, adjuvant, PF 05/08/2023 Completed 216 CVX [...] Kashif Li M.D. RB: TED Report ID: [id number] Reading Location: [id number] PELVIS - Completed: 05/27/20 11:55 LOINC: EXAM DESCRIPTION: PELVIS REASON FOR [...] Kashif Li M.D. RB: TED Report ID: [id number] Reading Location: [id number] Social History Type Status Start Date End Date Code Code Syst em Smoking History Current every day smoker 917702330 SNOMED CT Sex Female Hospital Discharge Instructions [...] Code System No Known Allergies Moderate Active 142284339 SN OMED-CT Plan of Treatment No Data Found Encounters Encounter Diagnosis Start Date Code Code Sys tem Lumbago with sciatica, unspecified side 05/27/2024 SNOMED-CT Personal Care Team Section Performer Name Performer Role Active Date Inactive Da NIKKO Torres PCP - Primary care physician 2021-08-22 2024-01-09 CHANO ORDONEZ PCP - Primary care physician 2024-05-27 Imaging Narrative Notes
--- OUTSIDE RECORDS SUMMARY | 2025-02-05 00:56 | XMS_ITS | Clinical Summary ---
Author Organization [facility] Address [address] [place] [address] Care Team Providers Care Nail Maker Name Role Phone Christy Reynaga NP Unavailable [phone] Linda George MD Unavailable Bakari Reyna MD Primary Care Provider [phone] Allergies Active Allergy Reactions Criticality Noted Date [...] (81 mg total) by mouth daily. Active miconazole (ALOE VESTA ANTIFUNGAL) 2 % [...] Day Supply 3 tablet 09/29/19 25 Active nitroglycerin (NITROSTAT) 0.[address] 1 tablet (0.4 mg total) under the tongue every 5 (five) minutes as needed for Chest Pain. Maximum of 3 doses. 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 ([facility]) 07/28/2021 Necrotizing fasciitis ([facility]) 07/19/20 21 Chest pain 02/05/2020 HTN (hypertension) 02/05/2020 Resolved Problems Problem Noted Date Diagnosed Date Resolved Date Hypotension (arterial) 06/21/202006/22 Diabetes mellitus ([facility]) 02/05/2020 02/05/2020 Encounters Date Type Department Care Team Description 11/17/2024 1:30 PM CDT - 11/17/2024 11:59 PM CDT Hospital Encounter [facility] [address] [place] [address] Leonor Montaño, DAFNE Discharge Disposition: Home or Self Care (Routine Discharge) 11/17/2024 Travel from Last 3 Months Immunizations Immunization [...] drink = 0.6 oz pur e alcohol) [facility] Utilities Answer Date Recorded In the past 12 months has th e electric, gas, oil, or water company threatened to shut off services in your [...] declined 06/21/2020 How often do you attend confucianism or protestant serv ices? Patient declined 06/21/2020 Do you belong to any clubs o r organizations such as confucianism groups, unions, fraternal or athletic groups, or [...] and heating? Not hard at all 08/11/2023 [facility] [place] of Occupat ional Health - Occupational Stress Questionnaire Answer Date [...] place to sleep or slept in a usp (including now)? No 08/11/2023 Comments No Sex and Gender Information Value Date Recorded Sex Assigned at Female 09/11/2024 10:33 AM STYLE ADVISOR Legal Sex Female 9:47 PM CDT Gender [...] 3:04 AM CDT Height 154.9 cm (5' 1) 09/28/2024 3:04 AM CDT Body Mass Index [...] 3-dose series) 1985 COVID-19 Vaccine (2 - season) 2024 04/25/2023 Hemoglobin A1C 06/26/2024 03/27/2024, [...] have appropriate support at home upon discharge General No Cinthya Allen, solutions analyst Procedure Name Priority Date/Time Associated Diagnosis Comments CT LUMB SPINE WO CON STAT 11/17/2024 3:33 PM CDT Low back pain MG SCREENING W CANDACE TEA DIGI Routine [...] Recently Relevant to Health Maintenance Results * CT LUMB SPINE WO CON (11/17/2024 3:33 PM CDT) Anatomical Region Laterality Modality Spine Computed Tomogra phy 11/17/2024 3:45 PM CDT Impressions 11/17/2024 3:50 PM CDT IMPRESSION: 1. No acute traumatic injury identified. 2. Healing L2 compression fracture. Ordered By: LEONOR MONTAÑO Interpreted By: Galdino Carreon MD, 11/17/2024 3:45 PM Narrative 11/17/2024 3:[address] [place] [address] Examination: CT of the lumbar spine. Exam time: 1538 hours. Clinical history: Pain after a fall, primarily right-sided. Prior L2 fracture. Comparison: 05/08/2024. Technique: Thin section spiral axial scans were acquired from the T11-12 through the S2 levels without contrast. Sagittal and coronal reconstructions were performed from the data set. A dose lowering technique was used for this procedure, which may include, but is not limited to, dose reduction techniques, automated exposure control, the use of iterative reconstruction and ALARA/Image Gently techniques. Findings: There is minimally increased but still mild superior endplate compression deformity of L2 with associated sclerosis compatible with healing fracture. There is no acute fracture or dislocation. The other vertebral bodies are maintained normally in height. Alignment is satisfactory. The intervertebral discs are maintained normally in height. Mild facet arthropathy is again evident. The neural foramina appear patent. There is no minoo central canal stenosis. The spinal canal contents, as visualized, appear unremarkable. There is no paraspinal edema or hematoma. The caliber of the abdominal aorta is normal. Procedure Note Galdino Carreon MD - 11/17/2024 [place] [address] [place] [address] Examination: CT of the lumbar spine. Exam time: 1538 hours. Clinical history: Pain after a fall, primarily right-sided. Prior A6ogybvake. Comparison: 05/08/2024. Technique: Thin section spiral axial scans were acquired from the [id number] the S2 levels without contrast. Sagittal and coronalreconstructions were performed from the data set. A dose loweringtechnique was used for this procedure, which may include, but is notlimited to, dose reduction techniques, automated exposure control, the useof iterative reconstruction and ALARA/Image Gently techniques. Findings: There is minimally increased but still mild superior endplatecompression deformity of L2 with associated sclerosis compatible withhealing fracture. There is no acute fracture or dislocation. The othervertebral bodies are maintained normally in height. Alignment issatisfactory. The intervertebral discs are maintained normally in height.Mild facet arthropathy is again evident. The neural foramina appearpatent. There is no minoo central canal stenosis. The spinal canalcontents, as visualized, appear unremarkable. There is no paraspinal edemaor hematoma. The caliber of the abdominal aorta is normal. IMPRESSION: 1. No acute traumatic injury identified. 2. Healing L2 compression fracture. Ordered By: LEONOR MONTAÑO Interpreted By: Galdino Carreon MD, 11/17/2024 3:45 PM Leonor Montaño [facility] CT Final Resu lt * MG SCREENING W CANDACE TEA DIGI [...] 3:06 PM Narrative 10/07/2024 3:06 PM CDT [address] [place] [address] Examination: Digital screening mammogram with CAD. Clinical [...] 10.5(H) <5.7 % 03/28/2024 5:01 PM CDT [facility] ESTIMATED AVG GLUCOSE 255(H) 74 - 114 MG/DL 03/28/2024 5:01 PM CDT [facility] 03/27/2024 5:16 PM CDT Christy Reynaga CERTIFIED ENDOSCOPY TECHNICIAN LABORATORY Fin al Result [facility] [address] [place] [address], [place] [phone] [id number] * (ABNORMAL) LIPID PANEL (03/27/2024 5:16 PM CDT) CHOLESTEROL 201 MG/DL 03/28/2024 4:24 PM CDT [facility] Comment:BORDERLINE HIGH: 200 -239 TRIGLYCERIDES 264 MG/DL 03/28/2024 4:24 PM CDT [facility] Comment:200-499 HIGH HDL 31(L) >49 MG/DL 03/28/2024 4:24 PM CDT [facility] LDL-C 117 MG/DL 03/28/2024 4:24 PM CDT [facility] Comment:100-129 NEAR OR ABOV E OPTIMAL VLDL CALCULATION 53 MG/DL 03/28/20 4:24 PM CDT [facility] Comment:REFERENCE RANGE NOT ESTABLISHED CHOL/HDL RATIO 6.5 03/28/2024 4:24 PM CDT [facility] Comment:REFERENCE RANGE NOT ESTABLISHED LDL/HDL 3.8 03/28/2024 4:24 PM CDT [facility] Comment:REFERENCE RANGE NOT ESTABLISHED NON HDL CHOLESTEROL 170 MG/DL 03/28/2024 4:24 PM CDT [facility] Comment:REFERENCE RANGE NOT ESTABLISHED 03/27/2024 5:16 PM CDT Christy Reynaga CERTIFIED ENDOSCOPY TECHNICIAN LABORATORY Fin al Result Performing Organization Address City/[facility]/ZIP Co de Phone Number [facility] [address] [place] [address], [place] [phone] * HEPATITIS C ANTIBODY (03/27/2024 5:16 PM CDT) HEPATITIS C AB NON-REACTI VE NON-REACT JUDY 03/28/2024 6:13 PM CDT [facility] Comment: ANTIBODIES TO HCV NOT DETECTED. DOES NOT EXCLUDE THE POSSIBILITY OF EXPOSURE TO HCV. 03/27/2024 5:16 PM CDT Christy Reynaga CERTIFIED ENDOSCOPY TECHNICIAN LABORATORY Fin al Result [facility] [address] [place] [address], [place] [phone] [id number] * CT CHEST WO CON (03/10/2024 2:13 [...] 3:18 PM Narrative 03/19/2024 3:[address] [place] [address] Examination: CT of the chest without contrast. [...] Procedure Note Galdino Carreon MD - 03/19/2024 [place] [address] [place] [address] Examination: CT of the chest without contrast. [...] Carreon MD, 03/19/2024 3:18 PM Christy Reynaga CERTIFIED ENDOSCOPY TECHNICIAN CT Fin al Result from Last 3 Months or Most Recently Relevant to Health Maintenance Additional Health Concerns Infection Onset Date Last Indicated ESBL - Extended Spectrum Bet a-lactamase Comment:07/19/21 abscess tissue (SB) 08/05/2018 08/05/2018 Insurance MEDICAID [facility] Advance Directives Documents on File Type Date Recorded Patient Dental Patient Coordinator Expl anation Guardianship - Permanent 04/07/2018 12:00 AM PHYSICIAN CERTIFICATION STATEMENT Legal Documents 05/09/2014 12:00 AM ALF OF RECORD * Full Code (Latest Code [...] 3:50 PM 10/08/2021 4:02 PM Care Teams Nail Maker Relationship Specialty [place] [address] [place] [address] PCP - General FAMILY PRACTICE 11/18/24 Christy Reynaga NP [address] [place] [phone] Nurse Practitioner Family 01/03/24 Linda George MD [address] [place] [address] Consulting Physician CARDIOVASCULAR DISEASE 01/03/24
--- NOTE | 2025-02-05 01:09 | ED.GENADULT ---
HPI - General Adult General Chief complaint: Headache Stated complaint: scalp and head pain Time Seen by Provider: 02/05/25 00:56 History of Present Illness HPI narrative: Catrina is a 59F with a PMH of insulin dependent diabetes with neuropathy, acute pancreatitis, and chronic pain that presented to the ED with pain on her left scalp and hypersensitivity to touch. She has a palpable skin lesion on the left side of her scalp that is most tender and the surrounding area is very tender. She had told the nurse she has blurred vision and had some neck pain. However, to me she stated the neck pain is no more worse than her general neck aches. She also stated that her vision isn't that bad and it happens frequently. Related Data Home Medications ?Medication ?Instructions ?Recorded ?Confirmed ?Last Taken ?Type gabapentin 600 mg tablet 1,200 mg PO TID 03/15/23 12/13/24 12/13/24 History hydroxyzine HCl 50 mg tablet 50 mg PO TID PRN Itching 03/15/23 12/13/24 12/13/24 History omeprazole 40 mg capsule,delayed 40 mg PO DAILY 03/15/23 12/13/24 12/13/24 History release tizanidine 4 mg tablet 4 mg PO BID PRN Pain 03/15/23 12/13/24 12/13/24 History Allergies Allergy/AdvReac Type Severity Reaction Status Date / Time hydromorphone (From Dilaudid) AdvReac Intermediate Bradicardia Verified 12/16/24 23:11 Review of Systems Review of Systems: All systems reviewed & are unremarkable except as noted in HPI and below PMFSH Past Medical History Medical History Chronic pain Diabetes mellitus Social History Social History Smoking packs per day: 1 Smoking cigarettes per day: 20.0 Years smoked: 30 Smoking pack-years: 30.00 Smoking status: Current every day smoker Tobacco type: cigarettes Alcohol intake: never Substance use: never Substance use type: does not use Do You Feel Safe in your Home?: Yes Lack of Transportation: YES Lack of Food: Never True Current Housing: I Have Housing Concerned About Future Housing: No Difficulty Paying Gas/Electric Bills: YES Difficulty Paying for Meds: No Currently Unemployed: No Education: Grade School Difficulty w/ Childcare or Family Care: No Spiritual care concerns: No Exam Const: General: cooperative, healthy appearing, comfortable, no acute distress, well developed, alert, awake and Physically active Orientation/consciousness: oriented to person, oriented to place and oriented to time HENMT: Head: normal to inspection, normocephalic and atraumatic Ears: hearing grossly normal bilaterally and external ears normal Face/Nose/Sinus: Normal external nose present Other: There was an open cyst on the upper left scalp with surrounding erythema and allodynia in the surrounding tissues Eyes: General: appearance normal, both eyes and all related structures Periorbital: periorbital findings normal Sclera: sclerae normal EOM: EOMs intact bilaterally Other: Pupils are equal, round and reactive to light Neck: Neck: normal visual inspection Other: No TTP. Chest: Chest palpation & inspection: normal inspection of the chest Resp: Effort & Inspection: normal respiratory effort, able to speak in complete sentences and no respiratory distress Auscultation: clear to auscultation bilaterally Cardio: Jugular venous distension: no JVD Rate: regular rate Rhythm: regular rhythm GI: Inspection: normal to inspection GI Palp: Yes Soft to palpation Auscultation: normal bowel sounds Skin: General skin exam: normal color and no rashes or lesions noted Neuro: General: oriented to person, oriented to place and oriented to time Cranial nerves: Yes Equal, round and reactive pupils present Speech: normal speech Gait exam (Neuro): Normal gait present Other: Cranial nerves II-XII intact as tested. Normal symmetrical strength in the upper extremities. Vision and hearing grossly normal. Extrem: General: normal to inspection Course Course Emergency Course: Gave antibiotics for suspected infected sebaceous cyst with allodynia in the surrounding skin. As there is severe tenderness to palpation and she has no neuro symptoms, CVA, hemorrhage or carotid dissection far less likely. Shingles remains in the differential but there is no blistering rash at this time. Vital Signs Vital signs: Vital Signs Temperature 97.9 F 02/05/25 00:55 Pulse Rate 82 02/05/25 00:55 Respiratory Rate 20 02/05/25 00:55 Blood Pressure 137/85 02/05/25 00:55 Pulse Oximetry 95 02/05/25 00:55 Oxygen Delivery Room Air 02/05/25 00:55 Temperature 97.9 F 02/05/25 00:55 Pulse Rate 84 02/05/25 01:42 Respiratory Rate 18 02/05/25 01:42 Blood Pressure 128/74 02/05/25 01:42 Pulse Oximetry 96 02/05/25 01:42 Oxygen Delivery Room Air 02/05/25 01:42 Medical Decision Making Vital Signs Vital Signs: Vital Signs Temperature 97.9 F 02/05/25 00:55 Pulse Rate 82 02/05/25 00:55 Respiratory Rate 20 02/05/25 00:55 Blood Pressure 137/85 02/05/25 00:55 Pulse Oximetry 95 02/05/25 00:55 Oxygen Delivery Room Air 02/05/25 00:55 Temperature 97.9 F 02/05/25 00:55 Pulse Rate 84 02/05/25 01:42 Respiratory Rate 18 02/05/25 01:42 Blood Pressure 128/74 02/05/25 01:42 Pulse Oximetry 96 02/05/25 01:42 Oxygen Delivery Room Air 02/05/25 01:42 Discharge Plan Discharge Clinical Impression: Infected sebaceous cyst of skin, Allodynia Patient Disposition: Home Condition: Stable Instructions: Antibiotic Form Patient Language: Georgian Prescriptions: New cephalexin 500 mg capsule 500 mg PO Q8H Qty: 15 0RF No Action gabapentin 600 mg tablet 1,200 mg PO TID tizanidine 4 mg tablet 4 mg PO BID PRN (Reason: Pain) hydroxyzine HCl 50 mg tablet 50 mg PO TID PRN (Reason: Itching) omeprazole 40 mg capsule,delayed release(DR/EC) 40 mg PO DAILY naproxen 500 mg tablet 500 mg PO BID PRN (Reason: pain) Qty: 20 0RF fenofibrate 54 mg tablet 54 mg PO DAILY Qty: 30 0RF metformin 1,000 mg tablet 1,000 mg PO BIDWMEAL Qty: 60 0RF hydrocodone-acetaminophen 10-325 mg tablet 1 tablet PO Q6H PRN (Reason: pain (scale score 7-10)) Qty: 20 0RF ondansetron 4 mg tablet,disintegrating 4 mg PO Q6H PRN (Reason: nausea and vomiting) Qty: 30 0RF Follow-up/Referrals: UNKNOWN,DOCTOR [Primary Care Provider] -
[2025-02-05] MEDS: CEPHALEXIN 500 MG CAPSULE PO (01:32)
--- OUTSIDE RECORDS SUMMARY | 2025-02-05 01:38 | XMS_ITS ---
Author Organization Unknown Address [address] [place] [address] [phone] Phone Care Team Providers Care Composition Board Press Operator Name Role Phone ROBRIMA LINA Attending Unavailable [...] 187 CVX Pneumococcal conjugate PCV20 , polysaccharide [id number] conjugate, adjuvant, PF 05/08/2023 Completed 216 CVX COVID-19, mRNA, LNP-S, PF, prasad-sucrose, 30 mcg/0.3 mL 04/25/2023 Completed 309 CVX Results HIP RT 2 OR 3 VIEWS - Comple corbin: 01/12/2025 15:57 LOINC: \TM00\\12PI\\DRAo\\BM09\ \MRHo\ [address] [address] ---------NAME--------- NUMBER SEX AGE ADMIT DISC. XRAY# F/C TYPE YANNA JOHNSON [id number] F 59 01/12/25 01/12/25 35830 MB3 O/P DATE OF : 1965 M/R# [id number] PH#: [phone] RM \MRHx\ LOCATION: TRANSCRIBED: 01/12/25 16:09 HIP RT 2 OR 3 VIEWS [id number] COMPLETED:01/12/25 15:57 [id number] {REASON-HIP: PAIN RT HIP PHYSICIAN: JENNIFFER R [...] significant degenerative changes of the right hip. POINTER \ITLo\ \UNDo\ \UNDx\ \ITLx\ Reviewed and Electronically Signed by: Mckay Kapoor MD Signed Date: 01/12/25 16:09 Social History Type Status Start Date End Date Code Code Syst em Smoking History Current every day smoker 382846292 SNOMED CT Sex Female Hospital Discharge Instructions [...] Code System No Known Allergies Moderate Active 215273894 SN OMED-CT Plan of Treatment No Data Found Encounters Encounter Diagnosis Start Date Code Code Sys paige 01/12/2025 [id number] SNOMED-CT Personal Care Team Section Performer Name Performer Role Active Date Inactive NIKKO Izaguirre PCP - Primary care physician 2021-08-22 2024-01-09 CHANO ORDONEZ PCP - Primary care physician 2024-05-27 Imaging Narrative Notes [facility] 01/12/2025 16:12 [facility] [address] [place] [address] ---------NAME--------- NUMBER SEX AGE ADMIT DISC. XRAY# F/C TYPE YANNA JOHNSON [id number] F 59 01/12/25 01/12/25 25934 MB3 O/P DATE OF : 1965 M/R# [id number] #: [phone] LOCATION: TRANSCRIBED: 01/12/25 16:09 HIP RT 2 OR 3 VIEWS [id number] COMPLETED:01/12/25 15:57 [id number] {REASON-HIP: PAIN RT HIP PHYSICIAN: JENNIFFER RADIOLOGY REPORT CLINICAL INDICATION: PAIN RT HIP 59-year-old female with right hip pain after fall. TECHNIQUE: AP and frogleg lateral views of the right hip were performed. HIP RT 2 OR 3 VIEWS Comparison: None FINDINGS/IMPRESSION: No acute fracture or significant degenerative changes of the right hip. POINTER Reviewed and Electronically Signed by: Mckay Kapoor MD Signed Date: 01/12/25 16:09
--- OUTSIDE RECORDS SUMMARY | 2025-02-05 01:38 | XMS_ITS ---
Author Organization Unknown Address [address] [place] [address] [phone] Phone Care Team Providers Care Gas Pumping Station Supervisor Name Role Phone ROBNESSAGREY COXIE Attending [...] 187 CVX Pneumococcal conjugate PCV20 , polysaccharide [id number] conjugate, adjuvant, PF 05/08/2023 Completed 216 CVX [...] by Warner Rhodes M.D. CH: Report ID: [id number] Reading Location: [id number] Social History Type Status Start Date End Date Code Code Syst em Smoking History Current every day smoker [id number] SNOMED CT Sex Female Hospital Discharge Instructions [...] Code System No Known Allergies Moderate Active 328082039 SN OMED-CT Plan of Treatment No Data Found Encounters Encounter Diagnosis Start Date Code Code Sys tem Functional dyspepsia 07/01/2024 SNOMED- CT Personal Care Team Section Performer Name Performer Role Active Date Inactive NIKKO Izaguirre PCP - Primary care physician 2021-08-22 2024-01-09 CHANO ORDONEZ PCP - Primary care physician 2024-05-27 Imaging Narrative Notes
--- OUTSIDE RECORDS SUMMARY | 2025-02-05 01:38 | XMS_ITS ---
Author Organization Unknown Address [address] [place] [address] [phone] Phone Care Team Providers Care Rn Transitional Name Role Phone SHEPARD TAMIKO Attending Unavailable [...] 187 CVX Pneumococcal conjugate PCV20 , polysaccharide [id number] conjugate, adjuvant, PF 05/08/2023 Completed 216 CVX [...] Pedro Serrano M.D. NS: NS Report ID: [id number] Reading Location: [id number] RIBS RIGHT W/ 1V CHEST - Com [...] Kashif Li M.D. RB: TED Report ID: [id number] Reading Location: [id number] SHOULDER MIN 2V RIGHT - Comp leted: [...] Darell Pires M.D. MM: MM Report ID: [id number] Reading Location: [id number] Social History Type Status Start Date End Date Code Code Syst em Smoking History Current every day smoker 857788531 SNOMED CT Sex Female Hospital Discharge Instructions [...] Code System No Known Allergies Moderate Active 101830078 SN OMED-CT Plan of Treatment No Data [...]
--- OUTSIDE RECORDS SUMMARY | 2025-02-05 01:38 | XMS_ITS | Encounter Summary ---
Author Organization [facility] Address [facility] [place] [address] Care Team Providers Care Boiler Coverer Name Role Phone Eriberto Malone MD Primary Care Provider [phone] None, Provider Primary Care Provider Unavaila ble None, Provider Primary Care Provider Unavaila ble Pearl Marin MD Primary Care Provider [phone] None, Provider Primary Care Provider Unavaila ble Valerie Kilgore MD Primary Care Provider [phone] Jack Reynaga GEODETIC TECHNICIAN Unavailable [phone] Linda George MD Unavailable Bakari Renya MD Primary Care Provider [phone] Encounter Details Date Type Department Care Team (Late st Contact Info) Description 10/05/2017 Abstract [facility] CONVERSION [address] [place] [address] , Generic Conversion, Social History Tobacco Use Types Packs/Day Years Used Date Smoking Tobacco: Smoker, Current Status Unknown Comments Unknown Sex and Gender Information Value Date Recorded Sex Assigned at Female 09/11/2024 10:33 AM ROUTE SALES PERSON Legal Sex Female 9:47 PM CDT Gender [...] Rule Out 06/21/2020 06/21/2020 06/21/2020 6:49 PM ROUTE SALES PERSON COVID-19 Rule Out 06/21/2020 06/21/2020 06/22/2020 5:01 PM ROUTE SALES PERSON COVID-19 Rule Out 07/18/2021 07/18/2021 07/18/2021 9:43 PM ROUTE SALES PERSON COVID-19 Confirmed Comment:07/28/[address] Dietrich, patient meets [facility] guidelines for discontinuing COVID isolation. (RG) 07/18/2021 07/18/2021 07/28/2021 1:[address] COVID-19 Rule Out 05/08/2024 05/08/2024 05/08/2024 9:36 PM CDT documented as of this encounter Care Teams Boiler Coverer Relationship Specialty Start Date End Date Eriberto Malone MD [address] [facility] [address] [place] [address] PCP - General INTERNAL MEDICINE 12/26/18 06/14/19 None, ProviderMD PCP - General 06/22/19 09/06/19 None, Provider, PCP - General 09/07/19 10/04/19 Pearl Marin MD [address] [place] [address] PCP - General INTERNAL MEDICINE 10/05/19 03/14/23 None, ProviderMD PCP - General UNKNOWN PHYSICIAN SPECIALTY 03/15/23 07/04/23 Valerie Kilgore MD [address] [place] [phone] PCP - General FAMILY PRACTICE 07/05/23 11/17/24 [place] [address] [place] [address] PCP - General FAMILY PRACTICE 11/18/24 Jack Reynaga NP [address] [place] [phone] Nurse Practitioner Family 01/03/24 Linda George MD [address] [place] [address] Consulting Physician CARDIOVASCULAR DISEASE 01/03/24 documented as of this encounter
--- OUTSIDE RECORDS SUMMARY | 2025-02-05 01:38 | XMS_ITS | Encounter Summary ---
Author Organization [facility] Address [facility] [place] [address] Care Team Providers Care Inverform Machine Operator Name Role Phone Eriberto Malone MD Primary Care Provider [phone] None, Provider Primary Care Provider Unavaila ble None, Provider Primary Care Provider Unavaila ble Pearl Marin MD Primary Care Provider [phone] None, Provider Primary Care Provider Unavaila ble Valerie Kilgore MD Primary Care Provider + [phone] Jack Reynaga PILLOWCASE CUTTER Unavailable [phone] Linda George MD Unavailable Bakari Reyna MD Primary Care Provider [phone] Encounter Details Date Type Department Care Team (Late st Contact Info) Description 12/27/2018 Abstract SFL CONVERSION [address] [place] [address] , Generic Conversion, Social History Tobacco Use Types Packs/Day Years Used Date Smoking Tobacco: Smoker, Current Status Unknown Comments Unknown Sex and Gender Information Value Date Recorded Sex Assigned at Female 09/11/2024 10:33 AM BARN HAND Legal Sex Female 9:47 PM CDT Gender [...] Rule Out 06/21/2020 06/21/2020 06/21/2020 6:49 PM BARN HAND COVID-19 Rule Out 06/21/2020 06/21/2020 06/22/2020 5:01 PM BARN HAND COVID-19 Rule Out 07/18/2021 07/18/2021 07/18/2021 9:43 PM BARN HAND COVID-19 Confirmed Comment:07/28/[address] Dietrich, patient meets [facility] guidelines for discontinuing COVID isolation. (RG) 07/18/2021 07/18/2021 07/28/2021 1:[address] COVID-19 Rule Out 05/08/2024 05/08/2024 05/08/2024 9:36 PM CDT documented as of this encounter Care Teams Inverform Machine Operator Relationship Specialty Start Date End Date Eriberto Malone MD [address] [facility] [address] [place] [address] PCP - General INTERNAL MEDICINE 12/26/18 06/14/19 None, Provider, PCP - General 06/22/19 09/06/19 None, Provider, PCP - General 09/07/19 10/04/19 Pearl Marin MD [address] [place] [address] PCP - General INTERNAL MEDICINE 10/05/19 03/14/23 None, ProviderMD PCP - General UNKNOWN PHYSICIAN SPECIALTY 03/15/23 07/04/23 Valerie Kilgore MD [address] [place] [phone] PCP - General FAMILY PRACTICE 07/05/23 11/17/24 [place] [address] [place] [address] PCP - General FAMILY PRACTICE 11/18/24 Jack Reynaga NP [address] [place] [address] Nurse Practitioner Family 01/03/24 Linda George MD [address] [place] [address] Consulting Physician CARDIOVASCULAR DISEASE 01/03/24 documented as of this encounter
--- OUTSIDE RECORDS SUMMARY | 2025-02-05 01:38 | XMS_ITS ---
Author Organization Unknown Address [address] [place] [phone] Phone Care Team Providers Care Restorative Aide Name Role Phone KWAME Larose Attending Unavailable [...] 187 CVX Pneumococcal conjugate PCV20 , polysaccharide AGO139 conjugate, adjuvant, PF 05/08/2023 Completed 216 CVX COVID-19, mRNA, LNP-S, PF, prasad-sucrose, 30 mcg/0.3 mL 04/25/2023 Completed 309 CVX Social History Type Status Start Date End Date Code Code Syst em Smoking History Current every day smoker [id number] SNOMED CT Sex Female Hospital Discharge Instructions [...] Code System No Known Allergies Moderate Active [id number] SN OMED-CT Plan of Treatment No Data Found Encounters Encounter Diagnosis Start Date Code Code Sys tem Low back pain, unspecified 05/06/2024 S NOMED-CT Personal Care Team Section Performer Name Performer Role Active Date Inactive NIKKO Izaguirre PCP - Primary care physician 2021-08-22 2024-01-09 CHANO ORDONEZ PCP - Primary care physician 2024-05-27
--- OUTSIDE RECORDS SUMMARY | 2025-02-05 01:38 | XMS_ITS | Clinical Summary ---
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 ([facility]) 07/28/2021 Necrotizing fasciitis ([facility]) 07/19/20 21 Chest pain 02/05/2020 HTN (hypertension) 02/05/2020 Resolved Problems Problem Noted Date Diagnosed Date Resolved Date Hypotension (arterial) 06/21/202006/22 Diabetes mellitus ([facility]) 02/05/2020 02/05/2020 Encounters Date Type Department Care Team Description 11/17/2024 1:30 PM CDT - 11/17/2024 11:59 PM CDT Hospital Encounter [facility] [address] [facility] [place] [address] Leonor Montaño, DAFNE Discharge Disposition: Home or [...] 0.6 oz pur e alcohol) [facility] Utilities Answer Date Recorded In the past [...] declined 06/21/2020 How often do you attend sikhism or methodist serv ices? Patient declined 06/21/2020 Do you belong to any clubs o r organizations such as sikhism groups, unions, fraternal or athletic groups, or [...] and heating? Not hard at all 08/11/2023 [facility] of Occupat ional Health - Occupational Stress [...] place to sleep or slept in a intermediate (including now)? No 08/11/2023 Comments No Sex and Gender Information Value Date Recorded Sex Assigned at Female 09/11/2024 10:33 AM CALL CENTER TRAINER Legal Sex Female 9:47 PM CDT Gender [...] home upon discharge General No Cinthya Allen, worm sorter Procedure Name Priority Date/Time Associated Diagnosis Comments [...] 3:45 PM Narrative 11/17/2024 3:50 PM CDT [address] [place] [address] Examination: CT of the lumbar spine. Exam [...] Procedure Note Galdino Carreon MD - 11/17/2024 [place] [id number] [facility] [place] [address] Examination: CT of the lumbar spine. Exam time: 1538 hours. Clinical history: Pain after a fall, primarily right-sided. Prior [id number]. Comparison: 05/08/2024. Technique: Thin section spiral axial scans were acquired from the S60-50goggerw the S2 levels without contrast. Sagittal and [...] Carreon MD, 11/17/2024 3:45 PM Leonor Montaño [facility] CT Final Resu lt * MG SCREENING [...] 3:06 PM Narrative 10/07/2024 3:06 PM [address] [place] [address] Examination: Digital screening mammogram with CAD. Clinical [...] 10.5(H) <5.7 % 03/28/2024 5:01 PM CDT [facility] ESTIMATED AVG GLUCOSE 255(H) 74 - 114 MG/DL 03/28/2024 5:01 PM CDT [facility] 03/27/2024 5:16 PM CDT Christy Reynaga SALES CORRESPONDENCE CLERK LABORATORY Fin al Result [facility] [address] [place] [address], [place] [phone] [phone] * (ABNORMAL) LIPID PANEL (03/27/2024 5:16 PM CDT) CHOLESTEROL 201 MG/DL 03/28/2024 4:24 PM CDT [facility] Comment:BORDERLINE HIGH: 200 -239 TRIGLYCERIDES 264 MG/DL 03/28/2024 4:24 PM CDT [facility] Comment:200-499 HIGH HDL 31(L) >49 MG/DL 03/28/2024 4:24 PM CDT [facility] LDL-C 117 MG/DL 03/28/2024 4:24 PM CDT [facility] Comment:100-129 NEAR OR ABOV E OPTIMAL VLDL CALCULATION 53 MG/DL 03/28/20 4:24 PM CDT [facility] Comment:REFERENCE RANGE NOT ESTABLISHED CHOL/HDL RATIO 6.5 03/28/2024 4:24 PM CDT [facility] Comment:REFERENCE RANGE NOT ESTABLISHED LDL/HDL 3.8 03/28/2024 4:24 PM CDT [facility] Comment:REFERENCE RANGE NOT ESTABLISHED NON HDL CHOLESTEROL 170 MG/DL 03/28/2024 4:24 PM CDT [facility] Comment:REFERENCE RANGE NOT ESTABLISHED 03/27/2024 5:16 PM CDT Christy Reynaga SALES CORRESPONDENCE CLERK LABORATORY Fin al Result Performing Organization Address City/[facility]/ZIP Co de Phone Number [facility] [address] [place] [address], [place] [phone] * HEPATITIS C ANTIBODY (03/27/2024 5:16 PM CDT) HEPATITIS C AB NON-REACTI VE NON-REACT JUDY 03/28/2024 6:13 PM CDT [facility] Comment: ANTIBODIES TO HCV NOT DETECTED. DOES NOT EXCLUDE THE POSSIBILITY OF EXPOSURE TO HCV. 03/27/2024 5:16 PM CDT Christy Reynaga SALES CORRESPONDENCE CLERK LABORATORY Fin al Result [facility] [address] [place] [address], [place] [phone] * CT CHEST WO CON (03/10/2024 2:13 [...] 3:18 PM Narrative 03/19/2024 3:24 PM CDT [address] [place] [address] Examination: CT of the chest without contrast. [...] Procedure Note Galdino Carreon MD - 03/19/2024 [place] [id number] [place] [address] Examination: CT of the chest without contrast. [...] Ordered By: CHRISTY REYNAGA Interpreted By: Galdino aCrreon MD, 03/19/2024 3:18 PM Christy Reynaga SALES CORRESPONDENCE CLERK CT Fin al Result from Last 3 Months or Most Recently Relevant to Health Maintenance Additional Health Concerns Infection Onset Date Last Indicated ESBL - Extended Spectrum Bet a-lactamase Comment:07/19/21 abscess tissue (SB) 08/05/2018 08/05/2018 Insurance MEDICAID [facility] Advance Directives Documents on File Type Date Recorded Patient Wind Power Project Manager Expl anation Guardianship - Permanent 04/07/2018 12:00 AM PHYSICIAN CERTIFICATION STATEMENT Legal Documents 05/09/2014 12:00 AM HALF-WAY OF RECORD * Full Code (Latest Code [...] 3:50 PM 10/08/2021 4:02 PM Care Teams Movie Actor Relationship Specialty [place] [address] [place] [address] PCP - General FAMILY PRACTICE 11/18/24 Christy Reynaga NP [address] [place] [phone] Nurse Practitioner Family 01/03/24 Linda George MD [address] [place] [address] Consulting Physician CARDIOVASCULAR DISEASE 01/03/24
[2025-02-05 01:42] VITALS: BP 128/74; PULSE 84; RESP 18; O2SAT 96
== END 2025-02-05 01:42 | disposition home or self-care (01) ==
LOC: CHSED 01:34
PROVIDERS: Emergency Provider Family Medicine
DX: L72.3 Sebaceous cyst (principal); R20.8 Other disturbances of skin sensation; E11.9 Type 2 diabetes mellitus without complications; F17.210 Nicotine dependence, cigarettes, uncomplicated
CPT/HCPCS: 99283; A9270

== ENCOUNTER 2025-02-13 21:20 | Emergency (ER) | payer MEDICARE, MEDICAID, SELFPAY ==
--- NOTE | 2025-02-13 21:29 | ED.ABDPAIN ---
HPI - Abdominal Pain General Chief Complaint: Abdominal Pain Stated Complaint: ABDOMINAL PAIN Time Seen by Provider: 02/13/25 21:29 Source: patient Mode of arrival: ambulatory Limitations: no limitations History of Present Illness HPI narrative: 59-year-old female with a history of chronic pain, diabetes mellitus, gastric bypass, recurrent pancreatitis, diverticulosis, status post cholecystectomy, chronic abdominal wall scarring status post necrotizing fascitis surgery presents to the ED with an 8 hour history of -- left lower abdominal pain. The pain is continuous. It has gotten worse since it started 8 hours ago. no exacerbating or relieving factors. -- Patient has nausea with 1 episode of vomiting. No diarrhea. No fever -- Black discharge from her chronic scar in the left lower abdomen. MD elicited complaint: abdominal pain Pertinent past history: other ( recurrent pancreatitis, diverticulosis,) Onset (ago): hour(s) ( 8 hours) Pain Consistency: constant Location: LLQ Severity: severe Quality: aching Radiation: none Migration to: no migration Exacerbating factors: nothing Relieving factors: nothing Associated symptoms: nausea and vomiting Related Data Home Medications ?Medication ?Instructions ?Recorded ?Confirmed ?Last Taken ?Type gabapentin 600 mg tablet 1,200 mg PO TID 03/15/23 12/13/24 12/13/24 History hydroxyzine HCl 50 mg tablet 50 mg PO TID PRN Itching 03/15/23 12/13/24 12/13/24 History omeprazole 40 mg capsule,delayed 40 mg PO DAILY 03/15/23 12/13/24 12/13/24 History release tizanidine 4 mg tablet 4 mg PO BID PRN Pain 03/15/23 12/13/24 12/13/24 History Allergies Allergy/AdvReac Type Severity Reaction Status Date / Time hydromorphone (From Dilaudid) AdvReac Intermediate Bradicardia Verified 02/13/25 21:28 Review of Systems Review of Systems: All systems reviewed & are unremarkable except as noted in HPI and below Constitutional: Constitutional: Reports as per HPI and Reports no additional constitutional complaints Eyes: Eyes: Reports as per HPI and Reports no additional eye complaints ENT: Reports system reviewed and no additional complaints, except as documented and Reports as per HPI Cardiovascular: Cardiovascular: Reports as per HPI and Reports no additional cardiovascular complaints Respiratory: Respiratory: Reports as per HPI and Reports no additional respiratory complaints Gastrointestinal: Gastrointestinal: Reports as per HPI, Reports no additional gastrointestinal complaints, Reports abdominal pain, Reports nausea and Reports vomiting Comments: left lower quadrant abdominal pain Genitourinary: Genitourinary: Reports no additional female genitourinary complaints and Reports as per HPI Musculoskeletal: Musculoskeletal: Reports no additional musculoskeletal complaints and Reports as per HPI Integumentary/Breasts: Skin/Breast: Reports system reviewed and no additional complaints, except as docu and Reports as per HPI Comments: left lower abdomen has a chronic scar with erythematous edges. No skin breakdown. Neurologic: Reports system reviewed and no additional complaints, except as documented and Reports as per HPI Psychiatric: Psychiatric: Reports no additional psychiatric complaints and Reports as per HPI Endocrine: Endocrine: Reports no additional endocrine complaints and Reports as per HPI Hematologic/Lymphatic: Hematologic/Lymphatic: Reports no additional hematologic/lymphatic complaints and Reports as per HPI Allergic/Immunologic: Allergic/Immunologic: Reports no additional allergic/immunologic complaints and Reports as per HPI PMFSH Past Medical History Medical History Chronic pain Diabetes mellitus Social History Social History Smoking packs per day: 1 Smoking cigarettes per day: 20.0 Years smoked: 30 Smoking pack-years: 30.00 Smoking status: Current every day smoker Tobacco type: cigarettes Alcohol intake: never Substance use: never Substance use type: does not use Do You Feel Safe in your Home?: Yes Lack of Transportation: YES Lack of Food: Never True Current Housing: I Have Housing Concerned About Future Housing: No Difficulty Paying Gas/Electric Bills: YES Difficulty Paying for Meds: No Currently Unemployed: No Education: Grade School Difficulty w/ Childcare or Family Care: No Spiritual care concerns: No Exam Narrative: Vitals are stable Const: General: no acute distress Orientation/consciousness: patient oriented x3 Limitations: no limitations HENMT: Head: normal to inspection Ears: external ears normal Face/Nose/Sinus: Normal external nose present Face and sinus: normal facial exam Throat: posterior oropharynx normal Eyes: Conjunctivae: conjunctivae normal Pupils: Equal, round and reactive pupils present EOM: EOMs intact bilaterally Direct Ophthalmoscopy: no photophobia Neck: Neck: normal visual inspection, no lymphadenopathy and no meningeal signs Chest: Chest palpation & inspection: normal inspection of the chest Resp: Effort & Inspection: normal respiratory effort Auscultation: rhonchi and diminished lung sounds Cardio: Rate: regular rate Rhythm: regular rhythm GI: GI Palp: Yes Soft to palpation Auscultation: normal bowel sounds Other: no tenderness/rigidity / rebound. Chronic scar in the left lower abdomen the edges of which are erythematous. : General: Yes no CVA tenderness Back/Spine/Pelvis: Back: no CVA tenderness Skin: General skin exam: normal color Other: Abdominal scar is erythematous. Neuro: General: patient oriented x3, moves all extremities, no meningeal signs and no focal motor deficits Cranial nerves: Yes Nystagmus not present Speech: normal speech Extrem: General: normal to inspection and no clubbing, cyanosis or edema Psych: Mental Status: mental status grossly normal Affect: normal affect Attitude: cooperative Course Course Emergency Course: abdominal pain-- left lower quadrant abdominal pain. No tenderness /rigidity/ rebound. Labs unremarkable. patient has a history of diverticulosis. Discharged from chronic abdominal scar. Hyperglycemia with glucosuria Vital Signs Vital signs: Vital Signs Temperature 36.8 C 02/13/25 21:36 Pulse Rate 87 02/13/25 21:36 Respiratory Rate 14 02/13/25 21:36 Blood Pressure 156/79 H 02/13/25 21:36 Pulse Oximetry 97 02/13/25 21:36 Oxygen Delivery Room Air 02/13/25 21:36 Temperature 36.8 C 02/13/25 21:36 Pulse Rate 87 02/13/25 21:36 Respiratory Rate 14 02/13/25 21:36 Blood Pressure 156/79 H 02/13/25 21:36 Pulse Oximetry 97 02/13/25 21:36 Oxygen Delivery Room Air 02/13/25 21:36 MDM - Abdominal Pain MDM Narrative Medical decision making narrative: abdominal pain hyperglycemia Lab Data 02/13/25 22:00 02/13/25 22:00 Labs: Lab Results 02/13/25 Range/Units 22:00 WBC 5.0 (4.8-10.8) K/mm3 RBC 4.43 (4.20-5.40) M/mm3 Hgb 13.7 (12.0-15.0) g/dL Hct 40.6 (35.0-49.0) % MCV 91.6 (78.0-102.0) fL MCH 30.9 (27.0-31.0) pg MCHC 33.7 (32-36) g/dL RDW 12.5 (11.6-14.4) % Plt Count 178 (150-420) K/mm3 MPV 11.3 (9.2-11.8) fl Immature Gran % (Auto) 0.2 H (0.0-0.0) % Neut % (Auto) 66.9 (50.0-70.0) % Lymph % (Auto) 22.7 (18.0-42.0) % [place] % (Auto) 6.6 (2.0-11.0) % Eos % (Auto) 3.0 (1.0-6.0) % Baso % (Auto) 0.6 (0.0-1.0) % Lymph # (Auto) 1.14 (1.10-4.50) K/mm3 [place] # (Auto) 0.33 (0.10-0.90) K/mm3 Eos # (Auto) 0.15 (0.02-0.50) K/mm3 Baso # (Auto) 0.03 (0.00-0.10) K/mm3 Abs Immat Gran (auto) 0.01 H (0.00-0.00) K/mm3 Absolute Neuts (auto) 3.37 (1.70-7.20) K/mm3 Absolute Nucleated RBC 0.00 (0.00-0.00) K/mm3 Nucleated RBC % 0.0 (0-0.0) % Sodium 134 L (137-145) mmol/L Potassium 3.4 (3.4-5.0) mmol/L Chloride 105 (98-107) mmol/L Carbon Dioxide 23 (22-30) mmol/L Anion Gap 6 (4-12) mmol/L BUN 9 (7-17) mg/dL Creatinine 0.41 L (0.7-1.0) mg/dL Estim Creat Clear Calc 92 ml/min Estimated GFR > 60 (59 - ) Glucose 279 H (65-110) mg/dL Calculated Osmolality 286 (285-295) mOsm/kg Lactic Acid 1.1 (0.4-2.0) mmol/L Calcium 9.0 (8.4-10.2) mg/dL Total Bilirubin 0.4 (0.2-1.3) mg/dL AST 22 (14-36) U/L ALT 20 (6-35) U/L Alkaline Phosphatase 114 (38-126) U/L Total Protein 6.9 (6.3-8.2) g/dL Albumin 3.9 (3.5-5.1) g/dL Lipase 15 L (23-300) U/L Urine Color Light yellow (Yellow) Urine Appearance Clear (Clear) Urine pH 7.0 (5.0-8.0) Ur Specific Vista 1.010 (1.010-1.020) Urine Protein Negative (Negative) Urine Glucose (UA) 3+ H (Negative) Urine Ketones Negative (Negative) Ur Blood (Man) Negative (Negative) Urine Nitrate Negative (Negative) Urine Bilirubin Negative (Negative) Urine Urobilinogen 1.0 (0.2-1.0) mg/dL Leukocyte Esterase Rfl Trace H (Negative) TAURUS/UL Urine WBC None seen (0-3) /hpf Ur Squamous Epith Cells Few (Few) /hpf Urine Mucus Few H /lpf Discharge Plan Discharge Clinical Impression: Abdominal pain Qualifiers: Abdominal location: left lower quadrant Qualified Code(s): R10.32 - Left lower quadrant pain Hyperglycemia due to type 2 diabetes mellitus Qualifiers: Diabetes mellitus manager generation insulin use: without manager generation use Qualified Code(s): E11.65 - Type 2 diabetes mellitus with hyperglycemia Patient Disposition: Home Condition: Stable Instructions: Antibiotic Form, Diverticulosis (DC), Abdominal Pain (ED) Patient Language: Macedonian Prescriptions: No Action gabapentin 600 mg tablet 1,200 mg PO TID tizanidine 4 mg tablet 4 mg PO BID PRN (Reason: Pain) hydroxyzine HCl 50 mg tablet 50 mg PO TID PRN (Reason: Itching) omeprazole 40 mg capsule,delayed release(DR/EC) 40 mg PO DAILY naproxen 500 mg tablet 500 mg PO BID PRN (Reason: pain) Qty: 20 0RF fenofibrate 54 mg tablet 54 mg PO DAILY Qty: 30 0RF metformin 1,000 mg tablet 1,000 mg PO BIDWMEAL Qty: 60 0RF hydrocodone-acetaminophen 10-325 mg tablet 1 tablet PO Q6H PRN (Reason: pain (scale score 7-10)) Qty: 20 0RF ondansetron 4 mg tablet,disintegrating 4 mg PO Q6H PRN (Reason: nausea and vomiting) Qty: 30 0RF cephalexin 500 mg capsule 500 mg PO Q8H Qty: 15 0RF Follow-up/Referrals: UNKNOWN,DOCTOR [Non-Staff] - Time of Disposition: 22:33
[2025-02-13 21:36] VITALS: BP 156/79; PULSE 87; RESP 14; TEMP 36.8; O2SAT 97
--- OUTSIDE RECORDS SUMMARY | 2025-02-13 21:52 | XMS_ITS | Encounter Summary ---
Author Organization [facility] Address [facility] [place] [address] Care Team Providers Care Treatment Coordinator Name Role Phone Eriberto Malone MD Primary Care Provider [phone] None, Provider Primary Care Provider Unavaila ble None, Provider Primary Care Provider Unavaila ble Pearl Marin MD Primary Care Provider [phone] None, Provider Primary Care Provider Unavaila ble Valerie Kilgore MD Primary Care Provider + [phone] Jack Reynaga [employer] Unavailable [phone] Linda George MD Unavailable Bakari Reyna MD Primary Care Provider [phone] Encounter Details Date Type Department Care Team (Late st Contact Info) Description 12/27/2018 Abstract SFL CONVERSION [address] [place] [address] , Generic Conversion, Social History Tobacco Use Types Packs/Day Years Used Date Smoking Tobacco: Smoker, Current Status Unknown Comments Unknown Sex and Gender Information Value Date Recorded Sex Assigned at Female 09/11/2024 10:33 AM ROVING SIZER Legal Sex Female 9:47 PM CDT Gender [...] Rule Out 06/21/2020 06/21/2020 06/21/2020 6:49 PM ROVING SIZER COVID-19 Rule Out 06/21/2020 06/21/2020 06/22/2020 5:01 PM ROVING SIZER COVID-19 Rule Out 07/18/2021 07/18/2021 07/18/2021 9:43 PM ROVING SIZER COVID-19 Confirmed Comment:07/28/[address] Dietrich, patient meets [facility] guidelines for discontinuing COVID isolation. (RG) 07/18/2021 07/18/2021 07/28/2021 1:[address] COVID-19 Rule Out 05/08/2024 05/08/2024 05/08/2024 9:36 PM CDT documented as of this encounter Care Teams Treatment Coordinator Relationship Specialty Start Date End Date Eriberto Malone MD [address] [facility] [address] [place] [address] PCP - General INTERNAL MEDICINE 12/26/18 06/14/19 None, Provider, PCP - General 06/22/19 09/06/19 None, Provider, PCP - General 09/07/19 10/04/19 Pearl Marin MD [address] [place] [address] PCP - General INTERNAL MEDICINE 10/05/19 03/14/23 None, ProviderMD PCP - General UNKNOWN PHYSICIAN SPECIALTY 03/15/23 07/04/23 Valerie Kilgore MD [address] [place] [phone] PCP - General FAMILY PRACTICE 07/05/23 11/17/24 [place] [address] [place] [address] PCP - General FAMILY PRACTICE 11/18/24 Jack Reynaga NP [address] [place] [address] Nurse Practitioner Family 01/03/24 Linda George MD [address] [place] [address] Consulting Physician CARDIOVASCULAR DISEASE 01/03/24 documented as of this encounter
--- OUTSIDE RECORDS SUMMARY | 2025-02-13 21:52 | XMS_ITS | Encounter Summary ---
Author Organization [facility] Address [facility] [place] [address] Care Team Providers Care Development Eng Name Role Phone Eriberto Malone MD Primary Care Provider [phone] None, Provider Primary Care Provider Unavaila ble None, Provider Primary Care Provider Unavaila ble Pearl Marin MD Primary Care Provider [phone] None, Provider Primary Care Provider Unavaila ble Valerie Kilgore MD Primary Care Provider + [phone] Jack Reynaga [employer]GGLE PRESS FOLDER [employer] FEEDER Unavailable [phone] Linda George MD Unavailable Bakari Reyna MD Primary Care Provider [phone] Encounter Details Date Type Department Care Team (Late st Contact Info) Description 10/05/2017 Abstract [facility] CONVERSION [address] [place] [address] , Generic Conversion, Social History Tobacco Use Types Packs/Day Years Used Date Smoking Tobacco: Smoker, Current Status Unknown Comments Unknown Sex and Gender Information Value Date Recorded Sex Assigned at Female 09/11/2024 10:33 AM TRIMMER AND BORER MACHINE OPERATOR Legal Sex Female 9:47 PM CDT Gender [...] Rule Out 06/21/2020 06/21/2020 06/21/2020 6:49 PM TRIMMER AND BORER MACHINE OPERATOR COVID-19 Rule Out 06/21/2020 06/21/2020 06/22/2020 5:01 PM TRIMMER AND BORER MACHINE OPERATOR COVID-19 Rule Out 07/18/2021 07/18/2021 07/18/2021 9:43 PM TRIMMER AND BORER MACHINE OPERATOR COVID-19 Confirmed Comment:07/28/[address] Deitrich, patient meets [facility] guidelines for discontinuing COVID isolation. (RG) 07/18/2021 07/18/2021 07/28/2021 1:[address] COVID-19 Rule Out 05/08/2024 05/08/2024 05/08/2024 9:36 PM CDT documented as of this encounter Care Teams Development Eng Relationship Specialty Start Date End Date Eriberto Malone MD [address] [facility] [address] [place] [address] PCP - General INTERNAL MEDICINE 12/26/18 06/14/19 None, ProviderMD PCP - General 06/22/19 09/06/19 None, Provider, PCP - General 09/07/19 10/04/19 Pearl Marin MD [address] [place] [address] PCP - General INTERNAL MEDICINE 10/05/19 03/14/23 None, ProviderMD PCP - General UNKNOWN PHYSICIAN SPECIALTY 03/15/23 07/04/23 Valerie Kilgore MD [address] [place] [phone] PCP - General FAMILY PRACTICE 07/05/23 11/17/24 [place] [address] [place] [address] PCP - General FAMILY PRACTICE 11/18/24 Jack Reynaga NP [address] [place] [address] Nurse Practitioner Family 01/03/24 Linda George MD [address] [place] [address] Consulting Physician CARDIOVASCULAR DISEASE 01/03/24 documented as of this encounter
--- OUTSIDE RECORDS SUMMARY | 2025-02-13 21:52 | XMS_ITS | Clinical Summary ---
Author Organization [facility] Address [address] [place] [address] Care Team Providers Care Wildlife Conservationist Name Role Phone Christy Reynaga NP Unavailable [phone] Linda George MD Unavailable Bakari Reyna MD Primary Care Provider [phone] Allergies Active Allergy Reactions Criticality Noted Date [...] Day Supply 3 tablet 09/29/19 25 Active Active Problems Problem Noted Date Diagnosed Date Acute diverticulitis 08/11/2023 Encephalopathy 03/15/2023 Status epilepticus ([facility]) 08/12/2022 Sepsis ([facility]) 07/28/2021 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 ([facility]) 07/28/2021 Necrotizing fasciitis ([facility]) 07/19/20 21 Chest pain 02/05/2020 HTN (hypertension) 02/05/2020 Resolved Problems Problem Noted Date Diagnosed Date Resolved Date Hypotension (arterial) 06/21/202006/22 Diabetes mellitus ([facility]) 02/05/2020 02/05/2020 Encounters Date Type Department Care Team Description 11/17/2024 1:30 PM CDT - 11/17/2024 11:59 PM CDT Hospital Encounter [address] [place] [address] Leonor Montaño, DAFNE Discharge Disposition: Home or [...] drink = 0.6 oz pur e alcohol) [facility] Utilities Answer Date Recorded In the past 12 months has e [employer], [employer], oil, or water [employer] threatened to shut off services in your [...] declined 06/21/2020 How often do you attend moravian or christianity serv ices? Patient declined 06/21/2020 Do you belong to any clubs o r organizations such as moravian groups, unions, fraternal or athletic groups, or [...] and heating? Not hard at all 08/11/2023 [facility] [place] of Occupat ional Health - Occupational Stress [...] place to sleep or slept in a nursing home (including now)? No 08/11/2023 Comments No Sex and Gender Information Value Date Recorded Sex Assigned at Female 09/11/2024 10:33 AM TEMPERER Legal Sex Female 9:47 PM CDT Gender [...] home upon discharge General No Cinthya Allen, simulation technician Procedure Name Priority Date/Time Associated Diagnosis Comments [...] 3:45 PM Narrative 11/17/2024 3:50 [address] [place] [address] Examination: CT of the lumbar spine. Exam [...] Procedure Note Galdino Carreon MD - 11/17/2024 [place] [id number] [place] [address] Examination: CT of the lumbar spine. Exam time: 1538 hours. Clinical history: Pain after a fall, primarily right-sided. Prior [id number]. Comparison: 05/08/2024. Technique: Thin section spiral axial scans were acquired from the [id number] the S2 levels without contrast. Sagittal and [...] Carreon MD, 11/17/2024 3:45 PM Leonor Montaño WHEAT BUYER CT Final Resu lt * MG SCREENING [...] 3:06 PM Narrative 10/07/2024 3:06 PM CDT [address] [place] [address] Examination: Digital screening mammogram with CAD. Clinical [...] 10.5(H) <5.7 % 03/28/2024 5:01 PM CDT [facility] ESTIMATED AVG GLUCOSE 255(H) 74 - 114 MG/DL 03/28/2024 5:01 PM CDT [facility] 03/27/2024 5:16 PM CDT us Christy Reynaga NP LABORATORY Fin al Result [facility] [address] [place] [id number], [id number] * (ABNORMAL) LIPID PANEL (03/27/2024 5:16 PM CDT) Pathologist [facility] CHOLESTEROL 201 MG/DL 03/28/2024 4:24 PM CDT [facility] Comment:BORDERLINE HIGH: 200 -239 TRIGLYCERIDES 264 MG/DL 03/28/2024 4:24 PM CDT [facility] Comment:200-499 HIGH HDL 31(L) >49 MG/DL 03/28/2024 4:24 PM CDT [facility] LDL-C 117 MG/DL 03/28/2024 4:24 PM CDT [facility] Comment:100-129 NEAR OR ABOV E OPTIMAL VLDL CALCULATION 53 MG/DL 03/28/20 4:24 PM CDT [facility] Comment:REFERENCE RANGE NOT ESTABLISHED CHOL/HDL RATIO 6.5 03/28/2024 4:24 PM CDT [facility] Comment:REFERENCE RANGE NOT ESTABLISHED LDL/HDL 3.8 03/28/2024 4:24 PM CDT [facility] Comment:REFERENCE RANGE NOT ESTABLISHED NON HDL CHOLESTEROL 170 MG/DL 03/28/2024 4:24 PM CDT [facility] Comment:REFERENCE RANGE NOT ESTABLISHED 03/27/2024 5:16 PM CDT Christy Reynaga CLIENT EXECUTIVE LABORATORY Fin al Result [facility] [address] [place] [address], [id number] * HEPATITIS C ANTIBODY (03/27/2024 5:16 PM CDT) [facility] [address] HEPATITIS C AB NON-REACTI VE NON-REACT JUDY 03/28/2024 6:13 PM CDT [facility] Comment: ANTIBODIES TO HCV NOT DETECTED. DOES NOT EXCLUDE THE POSSIBILITY OF EXPOSURE TO HCV. 03/27/2024 5:16 PM CDT Christy Reynaga CLIENT EXECUTIVE LABORATORY Fin al Result [facility] [address] [place] [address], [place] [phone] [id number] * CT CHEST WO CON (03/10/2024 2:13 [...] 3:18 PM Narrative 03/19/2024 3:[address] PM [address] [place] [address] Examination: CT of the chest without contrast. [...] Procedure Note Galdino Carreon MD - 03/19/2024 [facility] [address] [place] [address] Examination: CT of the chest without contrast. [...] Carreon MD, 03/19/2024 3:18 PM Christy Reynaga CLIENT EXECUTIVE CT Fin al Result from Last 3 Months or Most Recently Relevant to Health Maintenance Additional Health Concerns Infection Onset Date Last Indicated ESBL - Extended Spectrum Bet a-lactamase Comment:07/19/21 abscess tissue (SB) 08/05/2018 08/05/2018 Insurance MEDICAID [facility] Advance Directives Documents on File Type Date Recorded Patient Loss Prevention Analyst Expl anation Guardianship - Permanent 04/07/2018 12:00 AM PHYSICIAN CERTIFICATION STATEMENT Legal Documents 05/09/2014 12:00 AM [facility] OF RECORD * Full Code (Latest Code [...] 3:50 PM 10/08/2021 4:02 PM Care Teams Wildlife Conservationist Relationship Specialty [place] [address] [place] [address] PCP - General FAMILY PRACTICE 11/18/24 Christy Reynaga NP [address] [place] [phone] Nurse Practitioner Family 01/03/24 Linda George MD [address] [place] [address] Consulting Physician CARDIOVASCULAR DISEASE 01/03/24
[2025-02-13 22:06] LABS: Hematocrit 40.6 % (35.0-49.0); Hemoglobin 13.7 g/dL (12.0-15.0); Immature Granulocyte Percent A 0.2 % (0.0-0.0); Lymphocytes Absolute Auto 1.14 K/mm3 (1.10-4.50); Mean Corpuscular HGB Conc 33.7 g/dL (32-36); Mean Corpuscular Hemoglobin 30.9 pg (27.0-31.0); Mean Corpuscular Volume 91.6 fL (78.0-102.0); Nucleated Red Blood Cells Absolute Auto 0.00 K/mm3 (0.00-0.00); Nucleated Red Blood Cells Perc 0.0 % (0-0.0); Platelet Count Result 178 K/mm3 (150-420); Red Blood Count 4.43 M/mm3 (4.20-5.40); White Blood Count 5.0 K/mm3 (4.8-10.8)
[2025-02-13 22:07] LABS: Add Urine Microscopic? YES; Appearance Urine Clear (Clear); Glucose Urine UA 3+ (Negative); Leukocyte Esterase Ur Trace LEU/UL (Negative); Nitrate Urine Negative (Negative); Specific Grav Ur 1.010 (1.010-1.020)
[2025-02-13 22:15] LABS: Alanine Aminotransferase 20 U/L (6-35); Albumin Level 3.9 g/dL (3.5-5.1); Alkaline Phosphatase 114 U/L (38-126); Anion Gap 6 mmol/L (4-12); Aspartate Amino Transferase 22 U/L (14-36); Bilirubin,Total 0.4 mg/dL (0.2-1.3); Blood Urea Nitrogen 9 mg/dL (7-17); Calcium 9.0 mg/dL (8.4-10.2); Carbon Dioxide 23 mmol/L (22-30); Chloride 105 mmol/L (98-107); Estimated CRCL calculation 92 ml/min; Estimated Glomerular Filt Rate > 60; Glucose 279 mg/dL (65-110); Lipase 15 U/L (23-300); Osmolality Calculated 286 mOsm/kg (285-295); Potassium 3.4 mmol/L (3.4-5.0); Sodium 134 mmol/L (137-145); Total Protein 6.9 g/dL (6.3-8.2)
[2025-02-13] MEDS: ONDANSETRON HCL ODT 4 MG TABLET PO (22:41)
[2025-02-13] MEDS: oxyCODONE/ACETAMINOPHEN (*CRX) 10-325 MG TABLET 1 TAB PO (22:42)
[2025-02-13 22:47] VITALS: BP 131/78; PULSE 68; RESP 15; O2SAT 96
== END 2025-02-13 22:47 | disposition home or self-care (01) ==
PROVIDERS: Emergency Provider Internal Medicine Critical Care Medicine; PCP Nurse Practitioner
DX: E11.65 Type 2 diabetes mellitus with hyperglycemia (principal); R10.32 Left lower quadrant pain; F17.210 Nicotine dependence, cigarettes, uncomplicated; Z90.49 Acquired absence of other specified parts of digestive tract
CPT/HCPCS: 36415; 80053; 81001; 83605; 83690; 85025; 99283; A9270

== ENCOUNTER 2025-03-01 18:07 | Emergency (ER) | payer MEDICARE, MEDICAID, SELFPAY ==
[2025-03-01 18:07] VITALS: BP 159/68; PULSE 88; RESP 18; TEMP 36.8; O2SAT 95
--- OUTSIDE RECORDS SUMMARY | 2025-03-01 18:45 | XMS_ITS | Encounter Summary ---
Author Organization [facility] Address [facility] [place] [address] Care Team Providers Care Community Development Planner Name Role Phone Eriberto Malone MD Primary Care Provider [phone] None, Provider Primary Care Provider Unavaila ble None, Provider Primary Care Provider Unavaila ble Pearl Marin MD Primary Care Provider [phone] None, Provider Primary Care Provider Unavaila ble Valerie Kilgore MD Primary Care Provider + [phone] Jack Reynaga COLLAR SEWER Unavailable [phone] Linda George MD Unavailable Bakari Reyna MD Primary Care Provider [phone] Encounter Details Date Type Department Care Team (Late st Contact Info) Description 10/05/2017 Abstract [facility] CONVERSION [address] [place] [address] , Generic Conversion, Social History Tobacco Use Types Packs/Day Years Used Date Smoking Tobacco: Smoker, Current Status Unknown Comments Unknown Sex and Gender Information Value Date Recorded Sex Assigned at Female 09/11/2024 10:33 AM PRESIDENT FINANCE COMPANY Legal Sex Female 9:47 PM CDT Gender [...] Rule Out 06/21/2020 06/21/2020 06/21/2020 6:49 PM PRESIDENT FINANCE COMPANY COVID-19 Rule Out 06/21/2020 06/21/2020 06/22/2020 5:01 PM PRESIDENT FINANCE COMPANY COVID-19 Rule Out 07/18/2021 07/18/2021 07/18/2021 9:43 PM PRESIDENT FINANCE COMPANY COVID-19 Confirmed Comment:07/28/[address] Dietrich, patient meets [facility] guidelines for discontinuing COVID isolation. (RG) 07/18/2021 07/18/2021 07/28/2021 1:[address] COVID-19 Rule Out 05/08/2024 05/08/2024 05/08/2024 9:36 PM CDT documented as of this encounter Care Teams Community Development Planner Relationship Specialty Start Date End Date Eriberto Malone MD [address] [facility] [address] [place] [address] PCP - General INTERNAL MEDICINE 12/26/18 06/14/19 None, ProviderMD PCP - General 06/22/19 09/06/19 None, Provider, PCP - General 09/07/19 10/04/19 Pearl Marin MD [address] [place] [address] PCP - General INTERNAL MEDICINE 10/05/19 03/14/23 None, ProviderMD PCP - General UNKNOWN PHYSICIAN SPECIALTY 03/15/23 07/04/23 Valerie Kilgore MD [address] [place] [phone] PCP - General FAMILY PRACTICE 07/05/23 11/17/24 [place] [address] [place] [address] PCP - General FAMILY PRACTICE 11/18/24 Jack Reynaga NP [address] [place] [address] Nurse Practitioner Family 01/03/24 Linda George MD [address] [place] [address] Consulting Physician CARDIOVASCULAR DISEASE 01/03/24 documented as of this encounter
--- OUTSIDE RECORDS SUMMARY | 2025-03-01 18:45 | XMS_ITS | Encounter Summary ---
Author Organization [facility] Address [facility] [place] [address] Care Team Providers Care Tile Sorter Name Role Phone Eriberto Malone MD Primary Care Provider [phone] None, Provider Primary Care Provider Unavaila ble None, Provider Primary Care Provider Unavaila ble Pearl Marin MD Primary Care Provider [phone] None, Provider Primary Care Provider Unavaila ble Valerie Kilgore MD Primary Care Provider + [phone] Jack Reynaga WOOD GANG SAWYER Unavailable [phone] Linda George MD Unavailable Bakari Reyna MD Primary Care Provider [phone] Encounter Details Date Type Department Care Team (Late st Contact Info) Description 12/27/2018 Abstract [facility] CONVERSION [address] [place] [address] , Generic Conversion, Social History Tobacco Use Types Packs/Day Years Used Date Smoking Tobacco: Smoker, Current Status Unknown Comments Unknown Sex and Gender Information Value Date Recorded Sex Assigned at Female 09/11/2024 10:33 AM BASKET MAKER Legal Sex Female 9:47 PM CDT Gender [...] Rule Out 06/21/2020 06/21/2020 06/21/2020 6:49 PM BASKET MAKER COVID-19 Rule Out 06/21/2020 06/21/2020 06/22/2020 5:01 PM BASKET MAKER COVID-19 Rule Out 07/18/2021 07/18/2021 07/18/2021 9:43 PM BASKET MAKER COVID-19 Confirmed Comment:07/28/[address] Dietrich, patient meets [facility] guidelines for discontinuing COVID isolation. (RG) 07/18/2021 07/18/2021 07/28/2021 1:[address] COVID-19 Rule Out 05/08/2024 05/08/2024 05/08/2024 9:36 PM CDT documented as of this encounter Care Teams Tile Sorter Relationship Specialty Start Date End Date Eriberto Malone MD [address] [facility] [address] [place] [address] PCP - General INTERNAL MEDICINE 12/26/18 06/14/19 None, Provider, PCP - General 06/22/19 09/06/19 None, Provider, PCP - General 09/07/19 10/04/19 Pearl Marin MD [address] [place] [address] PCP - General INTERNAL MEDICINE 10/05/19 03/14/23 None, ProviderMD PCP - General UNKNOWN PHYSICIAN SPECIALTY 03/15/23 07/04/23 Valerie Kilgore MD [address] [place] [phone] PCP - General FAMILY PRACTICE 07/05/23 11/17/24 [place] [address] [place] [address] PCP - General FAMILY PRACTICE 11/18/24 Jack Reynaga NP [address] [place] [address] Nurse Practitioner Family 01/03/24 Linda George MD [address] [place] [address] Consulting Physician CARDIOVASCULAR DISEASE 01/03/24 documented as of this encounter
--- OUTSIDE RECORDS SUMMARY | 2025-03-01 18:45 | XMS_ITS | Clinical Summary ---
Author Organization [facility] Address [address] [place] [address] Care Team Providers Care Program Manager Slp Name Role Phone Christy Reynaga NP Unavailable [phone] Linda George MD Unavailable Bakari Reyna MD Primary Care Provider [phone] Allergies Active Allergy Reactions Criticality Noted Date Comments Bee Venom Unknown 08/02/2021 Medications albuterol sulfate HFA 108 (90 Base) MCG/ACT inhalerIndication s:Shortness of breath Take 1 puff by mouth every 4 (four) hours as needed for Shortness of breath. Indications: Shortness of breath Active omeprazole (PRILOSEC) 40 MG capsule Take 1 capsule (40 mg total) by mouth daily. 023 Active hydrOXYzine (ATARAX) 50 MG tablet Take 1 tablet (50 mg total) by mouth every 8 (eight) hours as needed. Active LEVEMIR FLEXPEN 100 UNIT/ML PEN Inject 60 Units into the skin 2 (two) times daily. 023 Active levothyroxine (SYNTHROID) 25 MCG tablet Take 1 tablet (25 mcg total) by mouth every morning. 023 Active diclofenac XR (VOLTAREN XR) 100 MG 24 hr tablet Take 1 tablet (100 mg total) by mouth daily as needed for Pain. 024 Active FLUoxetine (PROZAC) 20 MG capsule Take 1 capsule (20 mg total) by mouth daily. 024 Active TRELEGY ELLIPTA 100-62.5-25 MCG/ACT AEROSOL POWDER, BREATH ACTIVATED daily. Active gabapentin (NEURONTIN) 400 MG capsule Take 1 capsule (400 mg total) by mouth 3 (three) times daily. Active SUMAtriptan (IMITREX) 50 MG tablet Take 1 tablet (50 mg total) by mouth 2 (two) times daily as needed for Migraine. Active ondansetron (ZOFRAN-ODT) 4 MG disintegrating tablet Take 1 tablet (4 mg total) by mouth every 12 (twelve) hours as needed for Nausea. 10 tablet Active atorvastatin (LIPITOR) 80 MG tablet Take 1 tablet (80 mg total) by mouth nightly at bedtime. Active LANTUS SOLOSTAR 100 UNIT/ML injection (PEN) Inject into the skin nightly at bedtime. Active fenofibrate 160 MG tablet Active meloxicam (MOBIC) 15 MG tablet Take 1 tablet (15 mg total) by mouth daily. Active aspirin 81 MG chewable tablet Chew 1 tablet (81 mg total) by mouth daily. Active miconazole (ALOE VESTA ANTIFUNGAL) 2 % cream Apply topically 2 (two) times daily. 56 g Active naloxone (NARCAN) 4 MG/0.1ML nasal spray 1 spray by Nasal route as needed for Opioid reversal. may repeat every 2 to 3 minutes in alternating nostrils until medical assistance becomes available 1 each 2024 Active DULoxetine HCl 30 MG Capsule Delayed Release SprinkleIndicatio ns:Depression Take 90 mg by mouth daily. Indications: Depression 2024 Discontinued famotidine (PEPCID) 40 MG tabletIndications :Acid Regurgitation Take 1 tablet (40 mg total) by mouth daily. Indications: Acid Regurgitation 2024 Discontinued insulin lispro 100 UNIT/ML injection (VIAL) Inject 0-12 Units into the skin 3 (three) times daily before meals. 10 mL 12 2024 Discontinued fluconazole (DIFLUCAN) 200 MG tablet Take 1 tablet (200 mg total) by mouth daily. 02/15/ 2025 Discontinued PARoxetine (PAXIL) 30 MG tablet Take 1 tablet (30 mg total) by mouth every morning. 2024 Discontinued metroNIDAZOLE (FLAGYL) 500 MG tablet Take 1 tablet (500 mg total) by mouth 3 (three) times daily. 2024 Discontinued oxyCODONE-acetami nophen (PERCOCET) 5-325 MG tabletIndications :Acute Pain < 3 Day Supply Take 1 tablet by mouth every 8 (eight) hours as needed for Pain. 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 ([facility]) 07/28/2021 Necrotizing fasciitis ([facility]) 07/19/20 21 Chest pain 02/05/2020 HTN (hypertension) 02/05/2020 Resolved Problems Problem Noted Date Diagnosed Date Resolved Date Hypotension (arterial) 06/21/202006/22 Diabetes mellitus ([facility]) 02/05/2020 02/05/2020 Encounters Date Type Department Care Team Description 02/15/2025 10:24 PM CDT - 02/16/2025 12:30 AM CDT Emergency [facility] [address] [place] [address] [address] [place], [place] [id number] Severiano Montana MD Fall Discharge Disposition: Home or Self Care (Routine Discharge) 02/15/2025 Travel from Last 3 Months Immunizations Immunization [...] drink = 0.6 oz pur e alcohol) [facility] Utilities Answer Date Recorded In the past 12 months has e electric, gas, oil, or water company [...] declined 06/21/2020 How often do you attend evangelical or sabianist serv ices? Patient declined 06/21/2020 Do you belong to any clubs o r organizations such as evangelical groups, unions, fraternal or athletic groups, or [...] and heating? Not hard at all 08/11/2023 [facility] of Occupat ional Health - Occupational Stress [...] place to sleep or slept in a care home (including now)? No 08/11/2023 Comments No Sex and Gender Information Value Date Recorded Sex Assigned at Female 09/11/2024 10:33 AM [employer] Legal Sex Female 9:47 PM CDT Gender Identity Female 02/05/2020 6:25 AM CDT Sexual Orientation Not on file Last Filed Vital Signs Vital Sign Reading Time Taken Comments Blood Pressure 139/57 02/16/2025 12:02 AM CDT Pulse 72 02/16/2025 12:02 AM CDT Temperature 36.7 C (98 F) 02/16/2025 12:02 AM CDT Respiratory Rate 20 02/16/2025 12:02 AM CDT Oxygen Saturation 94% 02/16/2025 12:02 AM CDT Inhaled Oxygen Concentration - - Weight 52.2 kg (115 lb) 02/15/2025 10:21 PM CDT Height 156 cm (5' 1.42) 02/15/2025 10:21 PM CDT Body Mass Index 21.43 02/15/2025 10:21 PM CDT Plan of Treatment Health Maintenance Due [...] home upon discharge General No Cinthya Allen, senior medical director Procedure Name Priority Date/Time Associated Diagnosis Comments POCT GLUCOSE - DOCKED DEVICE Routine 02/15/2025 11:57 PM CDT HC URINALYSIS AUTO W/MICRO STAT 02/15/2025 11:00 PM CDT XR HIP RT 2V STAT 02/15/2025 10:51 PM CDT TROPONIN, QUANT STAT 02/15/2025 10:40 PM CDT COMPREHENSIVE METABOLIC PANEL STAT 02/15/2025 10:40 PM CDT CBC W/DIFF AUTOMATED STAT 02/15/2025 10:40 PM CDT POCT GLUCOSE - DOCKED DEVICE Routine 02/15/2025 10:06 PM CDT MG SCREENING W CANDACE TEA DIGI Routine [...] Recently Relevant to Health Maintenance Results * (ABNORMAL) POCT glucose (02/15/2025 11:57 PM CDT) Only the most recent of2 resultswithin the time period is included. GLUCOSE POC 464(H) 70 - 99 MG/DL 02/15/2025 11:59 PM CDT [facility] 02/15/2025 11:5 7 PM CDT us Severiano Montana MD POCT ORDERABLES - DEVICE Final R esult [facility] [address] [place] [address], * (ABNORMAL) URINALYSIS (02/15/2025 11:00 PM CDT) COLOR (U) YELLOW 02/15/2025 11:48 PM CDT [facility] TRANSPARENCY CLEAR 02/15/2025 11:48 PM CDT [facility] SPECIFIC GRAVITY (U) 1.015 1.000 - 1.025 02/15/2025 11:48 PM CDT [facility] U PH 6.5 5.0 - 8.0 02/15/2025 11:48 PM CDT [facility] LEUKOCYTES (U) NEGATIVE NEGATIVE 02/15/2025 11:48 PM CDT [facility] NITRITES NEGATIVE NEGATIVE 02/15/2025 11:48 PM CDT [facility] PROTEIN RANDOM (U) NEGATIVE NEGATIVE 02/15/2025 11:48 PM CDT [facility] GLUCOSE (U) 2+(A) NEGATIVE 02/15/2025 11:48 PM CDT [facility] KETONES MG/DL (U) NEGATIVE NEGATIVE 02/15/2025 11:48 PM CDT [facility] UROBILINOGEN 0.2 <1.0 EU/DL 02/15/2025 11:48 PM CDT [facility] BILIRUBIN (U) NEGATIVE NEGATIVE 02/15/2025 11:48 PM CDT [facility] BLOOD (U) NEGATIVE NEGATIVE 02/15/2025 11:48 PM CDT [facility] WBC/HPF 0-5 0 - 5 /HPF 02/15/2025 11:48 PM CDT [facility] EPI/LPF OCCASIONAL /LPF 02/15/2025 11:48 PM CDT [facility] BACTERIA (U) 1+ /HPF 02/15/2025 11:48 PM CDT [facility] URINE SPECIMEN OBTAINED BY CLEAN CATCH PROCEDURE / Unknown 02/15/2025 11:00 PM CDT us Severiano Montana MD URINE ORDERABLES Final Result [facility] [address] [id number], * XR HIP RT 2V (02/15/2025 10:51 PM CDT) Anatomical Region Laterality Modality Hip Radiographic Vanda ging 02/15/2025 11:1 2 PM CDT Impressions 02/15/2025 11:15 PM CDT IMPRESSION: 1. No evidence of acute fracture or dislocation in the right hip. Referred By: Interpreted By: Moriah Sotomayor DO, 02/15/2025 11:12 PM Narrative 02/15/2025 11:[address] [place] [address] CLINICAL INDICATION: 59-year-old female. Reason for examination: Pain. 02/15/2025 10:51 PM, Yrn Do L: pt states she fell today and landed on her right hip and is having pain TECHNIQUE: Supine AP and lateral views of the right hip. COMPARISON: Supine AP view of the pelvis and AP and lateral views of the bilateral hips. 08/09/2023 FINDINGS: No evidence of acute fracture or dislocation in the right hip. Right proximal femur intact. Right femoral head well rounded and normally seated within the acetabulum. The right superior and inferior pubic ramus and the right ilium are intact. The sacrum is intact and the sacroiliac joints are symmetric. Procedure Note Moriah Sotomayor MD - 02/15/[address] [place] [address] CLINICAL INDICATION: 59-year-old female. Reason for examination: Pain. 02/15/2025 10:51 PM, Yrn Do L: pt states she fell today andlanded on her right hip and is having pain TECHNIQUE: Supine AP and lateral views of the right hip. COMPARISON: Supine AP view of the pelvis and AP and lateral views of the bilateralhips. 08/09/2023 FINDINGS: No evidence of acute fracture or dislocation in the right hip. Rightproximal femur intact. Right femoral head well rounded and normallyseated within the acetabulum. The right superior and inferior pubic ramusand the right ilium are intact. The sacrum is intact and the sacroiliacjoints are symmetric. IMPRESSION: 1. No evidence of acute fracture or dislocation in the right hip. Referred By: Interpreted By: Moriah Sotomayor DO, 02/15/2025 11:12 PM Severiano Montana MD GENERAL IMAGING Final Result * (ABNORMAL) COMPREHENSIVE METABOLIC PANEL (02/15/2025 10:40 PM CDT) SODIUM S/P/B 134(L) 136 - 145 MMOL/L 02/15/2025 11:16 PM CDT [facility] POTASSIUM S/P/B 4.4 3.5 - 5.1 MMOL/L 02/15/2025 11:16 PM CDT [facility] CHLORIDE S/P/B 103 98 - 107 MMOL/L 02/15/2025 11:16 PM CDT [facility] CO2 23.7 21.0 - 32.0 MMOL/L 02/15/2025 11:16 PM CDT [facility] GLUCOSE 449(H) 70 - 99 MG/DL 02/15/2025 11:16 PM CDT [facility] Comment: FASTING GLUCOSE 100 TO 125 MG/DL IS CONSISTENT WITH IMPAIRED FASTING GLUCOSE. FASTING GLUCOSE >125 MG/DL IS CONSISTENT WITH DIABETES. RANDOM GLUCOSE >200 MG/DL WITH HYPERGLYCEMIC SYMPTOMS IS CONSISTENT WITH DIABETES. PER ADA GUIDELINES BUN 7 6 - 24 MG/DL 02/15/2025 11:16 PM CDT [facility] CREATININE S/P/B 0.70 0.55 - 1.02 MG/DL 02/15/2025 11:16 PM CDT [facility] CALCIUM S/P/B 9.1 8.4 - 10.5 MG/DL 02/15/2025 11:16 PM [facility] BILIRUBIN TOTAL S/P/B 0.1(L) 0.2 - 1.0 MG/DL 02/15/2025 11:16 PM [facility] Comment: THIS ASSAY IS NOT RECOMMENDED FOR PATIENTS UNDERGOING TREATMENT WITH ELTROMBOPAG DUE TO THE POTENTIAL FOR FALSELY ELEVATED RESULTS. ALKALINE PHOSPHATASE S/P/B 117 46 - 118 U/L 02/15/2025 11:16 PM T [facility] AST 9(L) 15 - 37 U/L 02/15/2025 11:16 PM [facility] ALT 18 14 - 59 U/L 02/15/2025 11:16 PM [facility] TOTAL PROTEIN S/P/B 7.0 6.4 - 8.2 G/DL 02/15/2025 11:16 PM [facility] ALBUMIN S/P/B 3.2(L) 3.4 - 5.0 G/DL 02/15/2025 11:16 PM [facility] ANION GAP 7.3 5.0 - 15.0 MMOL/L 02/15/2025 11:16 PM [facility] OSMOLALITY (CALC) 295 MOSM/KG 025 11:16 PM [facility] Comment:REFERENCE RANGE NOT ESTABLISHED GFR ESTIMATE >90 >89 ML/MIN/1. 73 M2 02/15/2025 11:16 PM [facility] GFR NOTES GFR REFERENCE S: 02/15/2025 11:16 PM [facility] Comment: THE ESTIMATED GFR IS CALCULATED USING THE 2020 CKD-EPI EQUATION. THE FOLLOWING CATEGORIES FOR GRADING RENAL FUNCTION ARE RECOMMENDED BY THE INTERNATIONAL SOCIETY OF NEPHROLOGY (KDIGO 2012 CLINICAL PRACTICE GUIDELINE). G1,NORMAL OR HIGH: >89 ml/min/1.73 m2 G2,MILDLY DECREASED: 60-89 ml/min/1.73 m2 G3A,MILDLY TO MODERATELY DECREASED: 45-59 ml/min/1.73 m2 G3B,MODERATELY TO SEVERELY DECREASED: 30-44 ml/min/1.73 m2 G4,SEVERELY DECREASED: 15-29 ml/min/1.73 m2 G5,KIDNEY FAILURE: <15 ml/min/1.73 m2 02/15/2025 10:4 0 PM CDT us Severiano Montana MD LABORATORY Final Result [facility] [address] [place] [address], * (ABNORMAL) CBC W/DIFF AUTOMATED (02/15/2025 10:40 PM CDT) WBC 4.18 4.00 - 10.80 x10'3/uL 02/15/2025 11:04 PM CDT [facility] RBC 4.20 4.10 - 5.40 x10'6/uL 02/15/2025 11:04 PM CDT [facility] HGB 13.0 12.0 - 16.0 G/DL 02/15/2025 11:04 PM CDT [facility] HCT 38.0 36.0 - 47.0 % 02/15/2025 11:04 PM CDT [facility] MCV 90.5 78.0 - 100.0 FL 02/15/2025 11:04 PM CDT [facility] MCH 31.0 27.0 - 31.0 PG 02/15/2025 11:04 PM CDT [facility] MCHC 34.2 33.0 - 36.0 G/DL 02/15/2025 11:04 PM CDT [facility] RDW 12.3 11.5 - 14.5 % 02/15/2025 11:04 PM CDT [facility] PLT 210 150 - 350 x10'3/uL 02/15/2025 11:04 PM CDT [facility] MPV 11.3(H) 7.4 - 10.4 FL 02/15/2025 11:04 PM CDT [facility] CBC COMMENT NORMAL REFERENCE RANGE NOT ESTABLISHED FOR THE PROPORTIONAL LEUKOCYTE DIFFERENTIAL. 02/15/2025 11:04 PM CDT [facility] NEUTROPHILS % 76.9 % 02/15/2025 11:04 PM CDT [facility] LYMPHOCYTES % 17.9 % 02/15/2025 11:04 PM CDT [facility] MONOCYTES % 3.6 % 02/15/2025 11:04 PM CDT [facility] EOSINOPHILS % 0.7 % 02/15/2025 11:04 PM CDT [facility] BASOPHILS % 0.7 % 02/15/2025 11:04 PM CDT [facility] IMMATURE GRANS % 0.2 % 02/16/20 11:04 PM CDT [facility] NRBC % 0.0 % 02/15/2025 11:04 PM CDT [facility] ABS. NEUTROPHILS 3.21 1.60 - 8.30 x10'3/uL 02/15/2025 11:04 PM CDT [facility] ABS. LYMPHOCYTES 0.75(L) 0.80 - 4.70 x10'3/uL 02/15/2025 11:04 PM CDT [facility] ABS. MONOCYTES 0.15 0.00 - 1.50 x10'3/uL 02/15/2025 11:04 PM CDT [facility] ABS. EOSINOPHILS 0.03 0.00 - 0.40 x10'3/uL 02/15/2025 11:04 PM CDT [facility] ABS. BASOPHILS 0.03 0.00 - 0.20 x10'3/uL 02/15/2025 11:04 PM CDT [facility] ABS. IMMATURE GRANULOCYTES 0.01 0.00 - 0.03 x10'3/uL 02/15/2025 11:04 PM CDT [facility] ABS. NUCLEATED RBC'S 0.00 0.00 - 0.01 x10'3/uL 02/15/2025 11:04 PM CDT [facility] 02/15/2025 10:4 0 PM CDT us Severiano Montana MD LABORATORY Final Result [facility] [address] [place] [id number], * TROPONIN, QUANT (02/15/2025 10:40 PM CDT) TROPONIN I HIGH SENSITIVITY <4 0 - 51 ng/L 02/15/2025 11:22 PM CDT [facility] 02/15/2025 10:4 0 PM CDT Severiano Montana MD LABORATORY Final Result Performing Organization Address [facility]/ZIP Co de Phone Number [facility] [address] [place] [id number], * MG SCREENING W CANDACE TEA DIGI [...] PM Narrative 10/07/2024 3:06 PM CDT [address] [address] Examination: Digital screening mammogram with CAD. Clinical [...] 10.5(H) <5.7 % 03/28/2024 5:01 PM CDT [facility] ESTIMATED AVG GLUCOSE 255(H) 74 - 114 MG/DL 03/28/2024 5:01 PM CDT [facility] 03/27/2024 5:16 PM CDT Christy Reynaga HEAD WAITER LABORATORY Fin al Result [facility] [address] [place] [address], [id number] * (ABNORMAL) LIPID PANEL (03/27/2024 5:16 PM CDT) CHOLESTEROL 201 MG/DL 03/28/2024 4:24 PM CDT [facility] Comment:BORDERLINE HIGH: 200 -239 TRIGLYCERIDES 264 MG/DL 03/28/2024 4:24 PM CDT [facility] Comment:200-499 HIGH HDL 31(L) >49 MG/DL 03/28/2024 4:24 PM CDT [facility] LDL-C 117 MG/DL 03/28/2024 4:24 PM CDT [facility] Comment:100-129 NEAR OR ABOV E OPTIMAL VLDL CALCULATION 53 MG/DL 03/28/20 24 4:24 PM CDT [facility] Comment:REFERENCE RANGE NOT ESTABLISHED CHOL/HDL RATIO 6.5 03/28/2024 4:24 PM CDT [facility] Comment:REFERENCE RANGE NOT ESTABLISHED LDL/HDL 3.8 03/28/2024 4:24 PM CDT [facility] Comment:REFERENCE RANGE NOT ESTABLISHED NON HDL CHOLESTEROL 170 MG/DL 03/28/2024 4:24 PM CDT [facility] Comment:REFERENCE RANGE NOT ESTABLISHED 03/27/2024 5:16 PM CDT [facility] Fin al Result Performing Organization Address City/[facility]/ZIP Co de Phone Number [facility] [address] [place] [address], [phone] * HEPATITIS C ANTIBODY (03/27/2024 5:16 PM CDT) HEPATITIS C AB NON-REACTI VE NON-REACT JUDY 03/28/2024 6:13 PM CDT [facility] Comment: ANTIBODIES TO HCV NOT DETECTED. DOES NOT EXCLUDE THE POSSIBILITY OF EXPOSURE TO HCV. 03/27/2024 5:16 PM CDT [facility] LAB[facility] Fin al Result Performing Organization Address City/[facility] Co de Phone Number [facility] [address] [place] [address], [place] [phone] * CT CHEST WO CON (03/10/2024 2:13 [...] 3:18 PM Narrative 03/19/2024 3:[address] [place] [address] Examination: CT of the chest without contrast. [...] Procedure Note Galdino Carreon MD - 03/19/[address] [place] [address] Examination: CT of the chest without contrast. [...] By: Galdino Carreon MD, 03/19/2024 3:18 PM us Christy Reynaga HEAD WAITER CT Fin al Result from Last 3 Months or Most Recently Relevant to Health Maintenance Additional Health Concerns Infection Onset Date Last Indicated ESBL - Extended Spectrum Bet a-lactamase Comment:07/19/21 abscess tissue (SB) 08/05/2018 08/05/[address] [place] [address] Advance Directives Documents on File Type Date Recorded Patient Data Collection Interviewer Expl anation Guardianship - Permanent 04/07/2018 12:00 [...] 3:50 PM 10/08/2021 4:02 PM Care Teams Program Manager Slp Relationship Specialty [place] [id number] [place] [address] PCP - General FAMILY PRACTICE 11/18/24 Christy Reynaga NP [address] [place] [phone] Nurse Practitioner Family 01/03/24 Linda George MD [address] [place] [address] Consulting Physician CARDIOVASCULAR DISEASE 01/03/24
--- NOTE | 2025-03-01 18:57 | ED.GENADULT ---
HPI - General Adult General Chief complaint: Skin/Abscess/Foreign Body Stated complaint: insect bites Time Seen by Provider: 03/01/25 18:38 Source: patient Mode of arrival: ambulatory Limitations: no limitations History of Present Illness HPI narrative: 60 YEARS OLD WHITE FEMALE CAME TO THE ED BY PRIVATE CAR FROM HOME COMPLAINING OF SKIN RASH AT THE RIGHT ARM AND RIGHT ABDOMEN STARTED 6 DAYS AGO. PATIENT IS TELLING ME THE RASH STARTED IN THE FORM OF BLISTER LIKE LESION, OPEN, AND NOW HAVING ROW SKIN AT THE SITE OF THE BLISTERS. PATIENT WAS SEEN AT URGENT CARE, LATER AT EMERGENCY ROOM LATER BY HER FAMILY PHYSICIAN AND WAS STARTED ON KEFLEX. PATIENT DENIES ANY FEVER, CHILLS, NAUSEA, VOMITING Related Data Home Medications ?Medication ?Instructions ?Recorded ?Confirmed ?Last Taken ?Type gabapentin 600 mg tablet 1,200 mg PO TID 03/15/23 12/13/24 12/13/24 History hydroxyzine HCl 50 mg tablet 50 mg PO TID PRN Itching 03/15/23 12/13/24 12/13/24 History omeprazole 40 mg capsule,delayed 40 mg PO DAILY 03/15/23 12/13/24 12/13/24 History release tizanidine 4 mg tablet 4 mg PO BID PRN Pain 03/15/23 12/13/24 12/13/24 History atorvastatin 80 mg tablet 80 mg PO QPM 03/01/25 Unknown History fluticasone fur. 100 mcg-umeclid 1 inh inhalation Q24H 03/01/25 Unknown History 62.5 mcg-vilant 25 mcg inhalat.powder (Trelegy Ellipta) tirzepatide 12.5 mg/0.5 mL 12.5 mg subcut WEEKLY 03/01/25 Unknown History subcutaneous pen injector (Mounjaro) tizanidine 2 mg tablet 2 mg PO Q12H 03/01/25 03/01/25 Unknown History Allergies Allergy/AdvReac Type Severity Reaction Status Date / Time hydromorphone (From Dilaudid) AdvReac Intermediate Bradicardia Verified 02/13/25 21:28 Review of Systems Review of Systems: All systems reviewed & are unremarkable except as noted in HPI and below PMFSH Past Medical History Medical History Chronic pain Diabetes mellitus Social History Social History Smoking packs per day: 1 Smoking cigarettes per day: 20.0 Years smoked: 30 Smoking pack-years: 30.00 Smoking status: Current every day smoker Tobacco type: cigarettes Alcohol intake: never Substance use: never Substance use type: does not use Do You Feel Safe in your Home?: Yes Lack of Transportation: YES Lack of Food: Never True Current Housing: I Have Housing Concerned About Future Housing: No Difficulty Paying Gas/Electric Bills: YES Difficulty Paying for Meds: No Currently Unemployed: No Education: Grade School Difficulty w/ Childcare or Family Care: No Spiritual care concerns: No Exam Narrative: GENERAL APPEARANCE: WELL-DEVELOPED, WELL-NOURISHED SKIN: NORMAL COLOR. RAW SKIN LIKE LESION AT THE RIGHT ARM DISTALLY 20 BY 15 CM, MOIST, NO DISCHARGE, NO BLISTERS. ANOTHER 2 LESION AT THE RIGHT ABDOMEN 10 X 5 CM AND 7 X 3 CM SIMILAR TO THE SAME SKIN LESION ON THE RIGHT ARM. HEAD: NORMOCEPHALIC, NONTRAUMATIC EYES: CLEAR CONJUNCTIVA ENT: OROPHARYNX NORMAL, EARS NORMAL, NOSE NORMAL NECK: SUPPLE, NONTENDER CHEST AND RESPIRATORY: AIRWAY PATENT, NO RESPIRATORY DISTRESS, NO ACCESSORY MUSCLE USE HEART: REGULAR RATE/RHYTHM ABDOMEN: SOFT, NONTENDER, NO ORGANOMEGALY, QUIET BOWEL SOUNDS VASCULAR: NORMAL PERIPHERAL PULSES, NORMAL CAPILLARY REFILL. MUSCULOSKELETAL: NORMAL RANGE OF MOTION, NONTENDER BACK NEUROLOGIC: ALERT AND ORIENTED ?3, CUSTOMER RELATIONS ADVISOR IS NORMAL TESTED, NO GROSS MOTOR DEFICIT Course Vital Signs Vital signs: Vital Signs Temperature 36.8 C 03/01/25 18:07 Pulse Rate 88 03/01/25 18:07 Respiratory Rate 18 03/01/25 18:07 Blood Pressure 159/68 H 03/01/25 18:07 Pulse Oximetry 95 03/01/25 18:07 Oxygen Delivery Room Air 03/01/25 18:07 Temperature 36.8 C 03/01/25 18:07 Pulse Rate 88 03/01/25 18:07 Respiratory Rate 18 03/01/25 18:07 Blood Pressure 159/68 H 03/01/25 18:07 Pulse Oximetry 95 03/01/25 18:07 Oxygen Delivery Room Air 03/01/25 18:07 Medical Decision Making [facility] Narrative Medical decision making narrative: PATIENT PRESENTS WITH SKIN LESION LOOKS LIKE RULE SKIN VITAL SIGNS SHOWING BLOOD PRESSURE 159/68 OTHERWISE WITHIN NORMAL LIMIT PHYSICAL EXAMINATION SHOWING RAW SKIN LIKE LESION AT THE RIGHT ARM DISTALLY AND RIGHT ABDOMEN. DIFFERENTIAL DIAGNOSIS PEMPHIGUS, BOLUS PEMPHIGOID, EPIDERMOLYSIS BULLOSA, VIRAL INFECTION, NONSPECIFIC DERMATITIS, SCALDED SKIN SYNDROME BLOOD WORKUP TODAY INCLUDES CBC, CMP, SED RATE SHOWED GLUCOSE 241 OTHERWISE WITHIN NORMAL LIMIT DIAGNOSIS BOLUS SKIN DISEASE FOLLOW-UP WITH ADV[employer]ED MANUFACTURING ASSOCIATE SOON POSSIBLE Differential Diagnosis Differential Diagnosis: ABOVE Vital Signs Vital Signs: Vital Signs Temperature 36.8 C 03/01/25 18:07 Pulse Rate 88 03/01/25 18:07 Respiratory Rate 18 03/01/25 18:07 Blood Pressure 159/68 H 03/01/25 18:07 Pulse Oximetry 95 03/01/25 18:07 Oxygen Delivery Room Air 03/01/25 18:07 Temperature 36.8 C 03/01/25 18:07 Pulse Rate 88 03/01/25 18:07 Respiratory Rate 18 03/01/25 18:07 Blood Pressure 159/68 H 03/01/25 18:07 Pulse Oximetry 95 03/01/25 18:07 Oxygen Delivery Room Air 03/01/25 18:07 Lab Data 03/01/25 19:18 03/01/25 19:18 Labs: Lab Results 03/01/25 Range/Units 19:18 WBC 6.4 (4.8-10.8) K/mm3 RBC 4.14 L (4.20-5.40) M/mm3 Hgb 12.4 (12.0-15.0) g/dL Hct 38.5 (35.0-49.0) % MCV 93.0 (78.0-102.0) fL MCH 30.0 (27.0-31.0) pg MCHC 32.2 (32-36) g/dL RDW 12.8 (11.6-14.4) % Plt Count 215 (150-420) K/mm3 MPV 10.5 (9.2-11.8) fl Immature Gran % (Auto) 0.2 H (0.0-0.0) % Neut % (Auto) 54.0 (50.0-70.0) % Lymph % (Auto) 34.5 (18.0-42.0) % [place] % (Auto) 6.8 (2.0-11.0) % Eos % (Auto) 3.9 (1.0-6.0) % Baso % (Auto) 0.6 (0.0-1.0) % Lymph # (Auto) 2.22 (1.10-4.50) K/mm3 [place] # (Auto) 0.44 (0.10-0.90) K/mm3 Eos # (Auto) 0.25 (0.02-0.50) K/mm3 Baso # (Auto) 0.04 (0.00-0.10) K/mm3 Abs Immat Gran (auto) 0.01 H (0.00-0.00) K/mm3 Absolute Neuts (auto) 3.48 (1.70-7.20) K/mm3 Absolute Nucleated RBC 0.00 (0.00-0.00) K/mm3 Nucleated RBC % 0.0 (0-0.0) % ESR Pending Sodium 134 L (137-145) mmol/L Potassium 4.7 (3.4-5.0) mmol/L Chloride 102 (98-107) mmol/L Carbon Dioxide 27 (22-30) mmol/L Anion Gap 5 (4-12) mmol/L BUN 16 (7-17) mg/dL Creatinine 0.74 (0.7-1.0) mg/dL Estim Creat Clear Calc 53 ml/min Estimated GFR > 60 (59 - ) Glucose 241 H (65-110) mg/dL Calculated Osmolality 287 (285-295) mOsm/kg Calcium 9.6 (8.4-10.2) mg/dL Total Bilirubin 0.3 (0.2-1.3) mg/dL AST 18 (14-36) U/L ALT 15 (6-35) U/L Alkaline Phosphatase 111 (38-126) U/L Total Protein 6.7 (6.3-8.2) g/dL Albumin 3.8 (3.5-5.1) g/dL Critical Care Time Critical Care Time Critical Care Time: No Discharge Plan Discharge Clinical Impression: Blister of skin Patient Disposition: Home Condition: Stable Instructions: Blister (ED), Dermatitis (ED) Additional Instructions: RETURN IF SYMPTOMS ARE WORSENING , CALL YOUR FAMILY PHYSICIAN FOR APPOINTMENT, TAKE TYLENOL NEEDED FOR ACHES AND PAIN, CONTINUE HOME MEDICATIONS. CALL DR. IBARRA AT [phone] CARDONA AT [phone] FOR DERMATOLOGY EVALUATION AND MANAGEMENT SOON POSSIBLE Patient Language: American Prescriptions: No Action gabapentin 600 mg tablet 1,200 mg PO TID tizanidine 4 mg tablet 4 mg PO BID PRN (Reason: Pain) hydroxyzine HCl 50 mg tablet 50 mg PO TID PRN (Reason: Itching) omeprazole 40 mg capsule,delayed release(DR/EC) 40 mg PO DAILY naproxen 500 mg tablet 500 mg PO BID PRN (Reason: pain) Qty: 20 0RF atorvastatin 80 mg tablet 80 mg PO QPM Trelegy Ellipta 100-62.5-25 mcg blister with device 1 inh INHALATION Q24H Mounjaro 12.5 mg/0.5 mL pen injector 12.5 mg SUBCUT WEEKLY tizanidine 2 mg tablet 2 mg PO Q12H fenofibrate 54 mg tablet 54 mg PO DAILY Qty: 30 0RF hydrocodone-acetaminophen 10-325 mg tablet 1 tablet PO Q6H PRN (Reason: pain (scale score 7-10)) Qty: 20 0RF cephalexin 500 mg capsule 500 mg PO Q8H Qty: 15 0RF Follow-up/Referrals: Danyel,Leonor Márquez EARLY CHILDHOOD [Primary Care Provider] -
--- NOTE | 2025-03-01 19:01 | PC.NURSE ---
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
[2025-03-01 19:22] LABS: Hematocrit 38.5 % (35.0-49.0); Hemoglobin 12.4 g/dL (12.0-15.0); Immature Granulocyte Percent A 0.2 % (0.0-0.0); Lymphocytes Absolute Auto 2.22 K/mm3 (1.10-4.50); Mean Corpuscular HGB Conc 32.2 g/dL (32-36); Mean Corpuscular Hemoglobin 30.0 pg (27.0-31.0); Mean Corpuscular Volume 93.0 fL (78.0-102.0); Nucleated Red Blood Cells Absolute Auto 0.00 K/mm3 (0.00-0.00); Nucleated Red Blood Cells Perc 0.0 % (0-0.0); Platelet Count Result 215 K/mm3 (150-420); Red Blood Count 4.14 M/mm3 (4.20-5.40); White Blood Count 6.4 K/mm3 (4.8-10.8)
[2025-03-01 19:34] LABS: Alanine Aminotransferase 15 U/L (6-35); Albumin Level 3.8 g/dL (3.5-5.1); Alkaline Phosphatase 111 U/L (38-126); Anion Gap 5 mmol/L (4-12); Aspartate Amino Transferase 18 U/L (14-36); Bilirubin,Total 0.3 mg/dL (0.2-1.3); Blood Urea Nitrogen 16 mg/dL (7-17); Calcium 9.6 mg/dL (8.4-10.2); Carbon Dioxide 27 mmol/L (22-30); Chloride 102 mmol/L (98-107); Estimated CRCL calculation 53 ml/min; Estimated Glomerular Filt Rate > 60; Glucose 241 mg/dL (65-110); Osmolality Calculated 287 mOsm/kg (285-295); Potassium 4.7 mmol/L (3.4-5.0); Sodium 134 mmol/L (137-145); Total Protein 6.7 g/dL (6.3-8.2)
--- NOTE | 2025-03-01 20:04 | PC.NURSE ---
area dermatologists including contact numbers given to ERP per RN for pt follow up.
[2025-03-01 20:18] VITALS: BP 121/81; PULSE 73; RESP 18; TEMP 36.4; O2SAT 95
== END 2025-03-01 20:20 | disposition home or self-care (01) ==
PROVIDERS: Emergency Provider Emergency Medicine; PCP Nurse Practitioner
DX: S40.821A Blister (nonthermal) of right upper arm, initial encounter (principal); S30.821A Blister (nonthermal) of abdominal wall, initial encounter; E11.9 Type 2 diabetes mellitus without complications; F17.210 Nicotine dependence, cigarettes, uncomplicated; Z79.899 Other long term (current) drug therapy; X58.XXXA Exposure to other specified factors, initial encounter
CPT/HCPCS: 36415; 80053; 85025; 85652; 99283

== ENCOUNTER 2025-06-07 16:37 | Emergency (ER) | payer MEDICARE, MEDICAID, SELFPAY ==
[2025-06-07 16:39] VITALS: BP 173/94; PULSE 95; RESP 19; TEMP 36.7; O2SAT 99
--- NOTE | 2025-06-07 17:05 | ED.EYEPROB ---
HPI - Eye Problem General Chief complaint: Eye Problems Stated complaint: both eyes burning Time Seen by Provider: 06/07/25 16:40 Source: patient Mode of arrival: ambulatory History of Present Illness HPI Narrative: 60-year-old with a history of hypercholesteremia, COPD here with the complaints of by bilateral eye pain since this morning. Patient states that she sees eye doctor for dry eyes she has been using steroid drops however since this morning her pain is been quite intense and she has an appointment to see water pump installer tomorrow. She denies any trauma. Denies any rash MD chief complaint: eye pain Onset (ago): day(s) (1) Onset description: gradual Duration: constant Location: both eyes Eye Symptoms: burning Place: home Mechanism: none Severity: mild If Pain, Quality: burning Associated symptoms: none Treatments Prior to Arrival: none Related Data Home Medications ?Medication ?Instructions ?Recorded ?Confirmed ?Last Taken ?Type gabapentin 600 mg tablet 1,200 mg PO TID 03/15/23 12/13/24 12/13/24 History hydroxyzine HCl 50 mg tablet 50 mg PO TID PRN Itching 03/15/23 12/13/24 12/13/24 History omeprazole 40 mg capsule,delayed 40 mg PO DAILY 03/15/23 12/13/24 12/13/24 History release tizanidine 4 mg tablet 4 mg PO BID PRN Pain 03/15/23 12/13/24 12/13/24 History atorvastatin 80 mg tablet 80 mg PO QPM 03/01/25 Unknown History fluticasone fur. 100 mcg-umeclid 1 inh inhalation Q24H 03/01/25 Unknown History 62.5 mcg-vilant 25 mcg inhalat.powder (Trelegy Ellipta) tirzepatide 12.5 mg/0.5 mL 12.5 mg subcut WEEKLY 03/01/25 Unknown History subcutaneous pen injector (Mounjaro) tizanidine 2 mg tablet 2 mg PO Q12H 03/01/25 03/01/25 Unknown History Allergies Allergy/AdvReac Type Severity Reaction Status Date / Time hydromorphone (From Dilaudid) AdvReac Intermediate Bradicardia Verified 06/07/25 16:44 Review of Systems Review of Systems: All systems reviewed & are unremarkable except as noted in HPI and below Constitutional: Constitutional: Reports no additional constitutional complaints Eyes: Eyes: Reports as per HPI and Reports no additional eye complaints Cardiovascular: Cardiovascular: Reports no additional cardiovascular complaints Respiratory: Respiratory: Reports no additional respiratory complaints Gastrointestinal: Gastrointestinal: Reports no additional gastrointestinal complaints Musculoskeletal: Musculoskeletal: Reports no additional musculoskeletal complaints Integumentary/Breasts: Skin/Breast: Reports system reviewed and no additional complaints, except as docu PMFSH Past Medical History Medical History Chronic pain Diabetes mellitus Social History Social History Smoking packs per day: 1 Smoking cigarettes per day: 20.0 Years smoked: 30 Smoking pack-years: 30.00 Smoking status: Current every day smoker Tobacco type: cigarettes Alcohol intake: never Substance use: never Substance use type: does not use Do You Feel Safe in your Home?: Yes Lack of Transportation: YES Lack of Food: Never True Current Housing: I Have Housing Concerned About Future Housing: No Difficulty Paying Gas/Electric Bills: YES Difficulty Paying for Meds: No Currently Unemployed: No Education: Grade School Difficulty w/ Childcare or Family Care: No Spiritual care concerns: No Exam Narrative: GENERAL: Well-appearing, well-nourished, and in no acute distress. HEAD: Normocephalic, atraumatic. EYES: PERRLA and EOMI. A bilateral uptake of the fluorescein dye in both the eyes ENT: Nares clear, no rhinorrhea or epistaxis. Mucous membranes moist. NECK: Supple. CHEST: Clear to auscultation. No respiratory distress. HEART: Regular rate and rhythm. No murmur heard. Normal peripheral pulses EXTREMITIES: Normal range of motion. No edema. SKIN: Warm, dry, no rash. NEURO: No focal deficits. Alert and oriented x3. PSYCH: Normal mood and affect. Eyes: Conjunctivae: conjunctivae normal Pupils: Equal, round and reactive pupils present Course Course Emergency Course: Notified patient about her diagnosis that she has bilateral corneal abrasions most likely from a dry eyes advised her to use the eyedrops as prescribed, follow-up with ophthalmology tomorrow as scheduled Vital Signs Vital signs: Vital Signs Temperature 36.7 C 06/07/25 16:39 Pulse Rate 95 06/07/25 16:39 Respiratory Rate 19 06/07/25 16:39 Blood Pressure 173/94 H 06/07/25 16:39 Pulse Oximetry 99 06/07/25 16:39 Oxygen Delivery Room Air 06/07/25 16:39 Temperature 36.7 C 06/07/25 16:39 Pulse Rate 95 06/07/25 16:39 Respiratory Rate 19 06/07/25 16:39 Blood Pressure 173/94 H 06/07/25 16:39 Pulse Oximetry 99 06/07/25 16:39 Oxygen Delivery Room Air 06/07/25 16:39 Discharge Plan Discharge Clinical Impression: Corneal abrasion of both eyes Patient Disposition: Home Condition: Stable Instructions: Corneal Abrasion (ED) Patient Language: Mauritanian Prescriptions: New moxifloxacin 0.5 % drops 1 drp EACH EYE TID 7 Days Qty: 3 0RF No Action gabapentin 600 mg tablet 1,200 mg PO TID tizanidine 4 mg tablet 4 mg PO BID PRN (Reason: Pain) hydroxyzine HCl 50 mg tablet 50 mg PO TID PRN (Reason: Itching) omeprazole 40 mg capsule,delayed release(DR/EC) 40 mg PO DAILY naproxen 500 mg tablet 500 mg PO BID PRN (Reason: pain) Qty: 20 0RF atorvastatin 80 mg tablet 80 mg PO QPM Trelegy Ellipta 100-62.5-25 mcg blister with device 1 inh INHALATION Q24H Mounjaro 12.5 mg/0.5 mL pen injector 12.5 mg SUBCUT WEEKLY tizanidine 2 mg tablet 2 mg PO Q12H fenofibrate 54 mg tablet 54 mg PO DAILY Qty: 30 0RF hydrocodone-acetaminophen 10-325 mg tablet 1 tablet PO Q6H PRN (Reason: pain (scale score 7-10)) Qty: 20 0RF cephalexin 500 mg capsule 500 mg PO Q8H Qty: 15 0RF Follow-up/Referrals: [facility] [Outside] Danyel,Leonor Márquez NP [Primary Care Provider, Unknown] Time of Disposition: 17:17
[2025-06-07 17:27] VITALS: BP 143/85; PULSE 90; RESP 18; TEMP 36.7; O2SAT 99
--- NOTE | 2025-06-07 17:33 | PC.NURSE ---
Patient requested while walking out door for prescription to be sent to [facility] in [place], [facility] will be closed by the time she can get there. RN spoke with [facility] pharmacist and called in prescription, then called [facility] and had them cancel it on their end.
== END 2025-06-07 17:27 | disposition home or self-care (01) ==
LOC: CHSED 17:17
PROVIDERS: Emergency Provider Family Medicine; PCP Nurse Practitioner
DX: S05.02XA Injury of conjunctiva and corneal abrasion without foreign body, left eye, initial encounter (principal); S05.01XA Injury of conjunctiva and corneal abrasion without foreign body, right eye, initial encounter; J44.9 Chronic obstructive pulmonary disease, unspecified; E11.9 Type 2 diabetes mellitus without complications; F17.210 Nicotine dependence, cigarettes, uncomplicated; X58.XXXA Exposure to other specified factors, initial encounter
CPT/HCPCS: 99283